=== PATIENT | female | born 1960 | race Caucasian/White ===

== ENCOUNTER 2024-01-22 06:59 | Emergency (ER) | payer BC, SELFPAY ==
[2024-01-22 07:01] VITALS: BP 166/106; PULSE 81; RESP 16; TEMP 36.7; O2SAT 96; BMI 38.8
--- NOTE | 2024-01-22 07:14 | CT_ITS ---
PROCEDURE INFORMATION: Exam: CT Abdomen And Pelvis With Contrast Exam date and time: 01/22/2024 7:59 AM Age: 63 years old Clinical indication: Abdominal pain; Generalized; Additional info: Multiple prev stones, b/l back and flank pain TECHNIQUE: Imaging protocol: Computed tomography of the abdomen and pelvis with contrast. Radiation optimization: All CT scans at this facility use at least one of these dose optimization techniques: automated exposure control; mA and/or kV adjustment per patient size (includes targeted exams where dose is matched to clinical indication); or iterative reconstruction. Contrast material: ISOVUE; Contrast volume: 75 ml; Contrast route: IV; COMPARISON: No relevant prior studies available. FINDINGS: Liver: Normal. No mass. Gallbladder and bile ducts: Cholecystectomy Pancreas: Pancreatic atrophy Spleen: Borderline splenomegaly 13.7 cm. Adrenal glands: 18 mm left adrenal nodule measures 45 Hounsfield units and not clearly adrenal adenoma. Kidneys and ureters: 2.9 cm simple cyst in the right kidney. . No follow-up imaging recommended . Nonobstructing right renal calculus. No ureteral calculus. Stomach and bowel: Diverticulosis of the rectosigmoid. No diverticulitis. Findings consistent with constipation. Diverticulosis of the rectosigmoid. No diverticulitis Appendix: Normal appendix Intraperitoneal space: Unremarkable. No free air. No significant fluid collection. Vasculature: Unremarkable. No abdominal aortic aneurysm. Lymph nodes: Calcified mediastinal lymph nodes consistent with prior granulomatous disease Urinary bladder: Unremarkable as visualized. Reproductive: Unremarkable as visualized. Bones/joints: Broad-based disc bulge, facet hypertrophy, and ligament hypertrophy at L3/L4, L4/L5, and L5/S1 consistent with spinal stenosis. . Soft tissues: Unremarkable. IMPRESSION: 1. No ureteral calculus. 2. Borderline splenomegaly 13.7 cm. 3. 18 mm left adrenal nodule measures 45 Hounsfield units and not clearly adrenal adenoma. In a patient with no cancer history, consider 12 month follow-up adrenal CT. (Reference: Jack) References: Jack FINCH et al. Management of Incidental Adrenal Masses: A White Paper of the ACR Incidental Findings Committee. J Am Isidra Radiol. 2017;14(8):5971-3736. 4. Broad-based disc bulge, facet hypertrophy, and ligament hypertrophy at L3/L4, L4/L5, and L5/S1 consistent with spinal stenosis. . COMMENTS: Consistent with the [employer]'s Incidental Findings Committee white paper (J Am Isidra Radiol 2018): Any incidental renal lesion less than 1 cm or classified as too small to characterize, or any incidental cystic renal lesion characterized as simple-appearing, is likely benign. No follow-up imaging is recommended for these lesions per consensus recommendations based on imaging criteria.
--- NOTE | 2024-01-22 07:14 | PC.NURSE ---
Dr. Massey at [facility] for pt eval
--- NOTE | 2024-01-22 07:16 | ED_ITS ---
Discharge Plan Disposition Patient Disposition: Home, Self-Care Prescriptions Prescriptions: New nitrofurantoin monohyd/m-cryst [Macrobid] 100 mg capsule 100 mg PO BID 5 Days Qty: 10 0RF Rx Instructions: must administer with a meal/food Referrals Follow up/Referrals: Tiffanie Diego APRN [Primary Care Provider] - See instructions Activity Restrictions/Add. Instructions Additional Instructions/Restrictions: At this time it was felt you are safe to be discharged home. If new or worsening symptoms please do not hesitate to return the emergency department. Please take antibiotics as prescribed and continue to follow-up with your family doctor for the findings on your CT today if your lower back pain persists. Clinical Impressions Clinical Impression: Urinary tract infection, Back pain, Bulging lumbar disc Instructions Patient Instructions: DI for Urinary Tract Infection (UTI), DI for Urinary Tract Infection in Children Discharge ED Provider: Maximino Massey General Adult HPI General Chief complaint: Urogenital-Female Stated complaint: pain in lower/upper back abd cramps Time Seen by Provider: 01/22/24 07:04 Mode of Arrival: Ambulatory Source of Information: Patient Limitations: No Limitations Description of Symptoms (Recalled from ER Triage Doc. by RN): Patient reports nausea and pain in her lower back that radiates to her abdomen. States she has had kidney stones recently and this kind of feels like that. History of Present Illness HPI narrative: Patient is a 63-year-old female with past medical history of multiple previous kidney stones none of which have required intervention as passed spontaneously presents emergency department for evaluation of flank pain and back pain. Approximately 2 weeks ago patient passed what she suspected were 3 stones in her urine and had interval improvement, however over the last few days she has had progressive bilateral CVA and lumbar pain radiating around to her flank. No frontal abdominal pain. There is associated nausea without vomiting. Normal stooling. Past surgical history of previous cholecystectomy. No chest pain reported. No other acute complaints at this time. Related Data Previous Rx's Medication Instructions Recorded nitrofurantoin 100 mg PO BID 5 days #10 caps 01/22/24 monohydrate/macrocrystals 100 mg capsule (Macrobid) Allergies Allergy/AdvReac Type Severity Reaction Status Date / Time latex Allergy Verified 01/22/24 07:12 [facility] Disclaimer: The information contained in this section may have been updated after the patient was seen, as this information can be updated by other users. Social History Smoking Status: Never smoker alcohol intake: never current occupational status: other Travel in the last 8 weeks: None ROS Obtained: Yes Systems reviewed as appropriate & no additional complaints except as documented Physical Exam General General appearance: alert and in no apparent distress Head Head exam: atraumatic and normocephalic Eye Eye exam: Present PERRL ENT ENT exam: Present mucous membranes moist Neck Neck exam: Present normal inspection Chest Chest inspection: Present normal inspection and symmetric chest wall rise Respiratory Respiratory exam: Present normal lung sounds bilaterally; Absent respiratory distress Cardiovascular Cardiovascular exam: Present regular rate and normal rhythm Abdominal Exam Abdominal exam: Present soft; Absent tenderness Extremities Exam Extremities exam: Present normal inspection Back Exam Back exam: Present normal inspection and other (Able to stand without antalgic gait); Absent tenderness Neurological Exam Neurological exam: Present alert Psychiatric Psychiatric exam: Present normal affect Skin Skin exam: Present warm and dry Medical Decision Making Mathieu Inquiry Pt receiving controlled substance: No Vital Signs: 01/22/24 07:01 01/22/24 08:37 Temperature 98.1 F Temperature Source Oral Pulse Rate 65 Pulse Rate [Radial] 81 Respiratory Rate 16 Blood Pressure 148/67 H Blood Pressure [Right Arm] 166/106 H Blood Pressure Mean [Right Arm] 126 Blood Pressure Source [Right Arm] Automatic Cuff Blood Pressure Position [Right Arm] Sitting 02 Sat by Pulse Oximetry 96 94 L Oxygen Delivery Method Room Air Room Air Lab Data Lab Results 01/22/24 07:06: WBC 7.6, RBC 5.28, Hgb 14.9, Hct 46.6, MCV 88.2, MCH 28.3, MCHC 32.1, RDW 14.0, Plt Count 214, MPV 9.5, Neut % (Auto) 62.0, Lymph % (Auto) 27.4, [place] % (Auto) 6.2, Eos % (Auto) 3.2, Baso % (Auto) 1.1, Neut # (Auto) 4.7, Lymph # (Auto) 2.1, [place] # (Auto) 0.5, Eos # (Auto) 0.2, Baso # (Auto) 0.1, Sodium 135 L, Potassium 4.2, Chloride 101, Carbon Dioxide 29, Anion Gap 9.2, BUN 10, C reatinine 0.50 L, Estimated Creat Clear 104, Estimated GFR 125, Est GFR ( Amer) 151, Glucose 336 H, Calcium 9.1, Total Bilirubin 0.6, AST 37 H, ALT 39, Alkaline Phosphatase 126, Total Protein 7.4, Albumin 4.0, Globulin 3.4 H, Albumin/Globulin Ratio 1.2, Lipase 68, Urine Color Yellow, Urine Appearance Clear, Urine pH 6.0, Ur Specific [place] 1.020, Urine Protein Negative, Urine Glucose (UA) 3+, Urine Ketones Negative, Urine Blood Negative, Urine Nitrate Negative, Urine Bilirubin Negative, Urine Urobilinogen 0.2, Ur Leukocyte Esterase Trace, Urine RBC None, Urine WBC 3-5, Ur Squamous Epith Cells Occasional, Urine Bacteria 1+ 01/22/24 07:06 01/22/24 07:06 Orders (Tests/Meds): ED MEDICATIONS Discontinued Medications Generic Name Dose Route Start Last Admin Trade Name Freq PRN Reason Stop Dose Admin Acetaminophen 1,000 mg 01/22/24 07:14 01/22/24 07:27 Acetaminophen 1,000mg/100ml Vial IV 01/22/24 07:15 1,000 mg ONCE ONE Administration Lactated Ringer's 1,000 mls @ 999 mls/hr 01/22/24 07:14 01/22/24 07:27 Lactated Ringer's 1000 Ml Bag IV 01/22/24 08:14 999 mls/hr .Q1H1M ONE Administration Iopamidol 75 ml 01/22/24 08:19 01/22/24 08:21 Iopamidol-370 (76%);100ml Bottle IV 01/22/24 08:20 75 ml ONCE ONE Administration Ketorolac Tromethamine 30 mg 01/22/24 07:14 01/22/24 07:27 Ketorolac 30mg/Ml Vial IV 01/22/24 07:15 30 mg ONCE ONE Administration Methocarbamol 1,000 mg 01/22/24 07:15 01/22/24 07:27 Methocarbamol 500mg Tablet PO 01/22/24 07:16 1,000 mg ONCE ONE Administration Ondansetron HCl 4 mg 01/22/24 07:14 01/22/24 07:27 Ondansetron 4mg/2ml Vial IV 01/22/24 07:15 4 mg ONCE ONE Administration Sodium Chloride 10 ml 01/22/24 08:19 01/22/24 08:21 Sodium Chloride 0.9% 10ml Syr (Rad Only) IV 01/22/24 08:20 10 ml ONCE ONE Administration ORDERS Category Date Time Status CT abdomen pelvis w con Stat Cat Scan 01/22/24 07:14 Completed CBC w/Auto Diff [Complete Blood Count Auto Diff] Stat Lab 01/22/24 07:06 Completed CMP [Comprehensive Metabolic Panel] Stat Lab 01/22/24 07:06 Completed Lipase Stat Lab 01/22/24 07:06 Completed UA [Urinalysis and Microscopic] Stat Lab 01/22/24 07:06 Completed Medical Decision Narrative: In summary patient is a 63-year-old female past medical history described above presents emergency department for evaluation of bilateral flank pain and back pain. Patient is hemodynamically stable nontoxic-appearing upon arrival, afebrile. Differential in the atraumatic setting includes obstructive ureterolithiasis although would be abnormal for bilateral flank pain, lumbago, urinary tract infection, among others. Workup will be conducted with hematologic labs, urinalysis, CT abdomen pelvis IV contrast. Initial interventions include crystalloid bolus, Tylenol, Toradol, methocarbamol, Zofran. Initial workup reviewed by me, hematologic labs are nonactionable, no leukocytosis, no acute blood loss anemia, no critical electrolyte abnormalities, patient is hyperglycemic without elevated anion gap so no concern for DKA. Patient also has no ketones in her urine. There is trace 1+ bacteria 3-5 whites, trace leuk esterase nitrite negative which is equivocal for urinary tract infection. CT imaging shows no ureteral calculus, borderline splenomegaly, 18 mm left adrenal nodule for which patient is already aware, broad-based disc bulge and facet hypertrophy at L3-L4/L4-L5/L5-S1. Given the radiating bilateral symptoms this may be reflective of her disc bulge. However she has no red flag symptoms that would warrant further emergent evaluation from the standpoint. Given these findings patient will be started on Macrobid for protein negative equivocal urinary tract infection will follow-up with PCP for continued evaluation. Critical Care Critical Care Time Critical Care Time: No
[2024-01-22 07:19] LABS: Microscopic, Urine URINE MICROSCOPIC (MICROSCOPIC)
[2024-01-22 07:21] LABS: Basophils # 0.1 K/mm3 (0-0.2); Basophils % 1.1 % (0.1-2.0); Eosinophils # 0.2 K/mm3 (0.0-0.4); Eosinophils % 3.2 % (0.1-12.0); Hematocrit 46.6 % (37.0-47.0); Hemoglobin 14.9 g/dL (12.2-16.2); Lymphocytes # 2.1 K/mm3 (0.7-4.5); Lymphocytes % 27.4 % (10-50); Mean Corpuscular HGB Conc 32.1 g/dL (31.8-35.4); Mean Corpuscular Hemoglobin 28.3 pg (27.0-31.2); Mean Corpuscular Volume 88.2 fl (81-99); Mean Platelet Volume 9.5 fl (7.4-10.4); Monocytes # 0.5 K/mm3 (0.1-1.0); Monocytes % 6.2 % (1.7-9.3); Neutrophils # 4.7 K/mm3 (1.8-7.8); Platelet Count 214 K/mm3 (142-424); Red Blood Count 5.28 M/mm3 (4.20-5.40); White Blood Count 7.6 K/mm3 (4.8-10.8)
[2024-01-22 07:22] LABS: Chloride 101 mmol/L (98-107)
[2024-01-22 07:23] LABS: Potassium 4.2 mmoL/L (3.5-5.1); Sodium 135 mmol/L (136-145)
[2024-01-22 07:25] LABS: Alanine Aminotransferase 39 U/L (12-78); Alkaline Phosphatase 126 U/L (38-126); Anion Gap 9.2 mEq/L (5-15); Aspartate Amino Transferase 37 U/L (14-36); Bilirubin,Total 0.6 mg/dl (0.2-1.3); Blood Urea Nitrogen 10 mg/dl (7-17); Carbon Dioxide 29 mmol/L (22.0-30.0); Creatinine Clearance Estimated 104 mL/min (50-200); Estimated Glomerular Filt Rate 125 ml/min (>60); GFR (African American) 151 ML/MIN (>60); Lipase 68 U/L (23-300)
[2024-01-22 07:26] LABS: Albumin/Globulin Ratio 1.2 (1.1-1.8); Calcium 9.1 mg/dl (8.4-10.2); Globulin 3.4 g/dL (1.3-3.2); Glucose 336 mg/dl (74-100); Total Protein,Serum 7.4 g/dl (6.3-8.2)
[2024-01-22] MEDS: KETOROLAC 30MG/ML VIAL 30 MG IV (07:27)
[2024-01-22] MEDS: ONDANSETRON 4MG/2ML VIAL 4 MG IV (07:27)
[2024-01-22] MEDS: ACETAMINOPHEN 1,000MG/100ML VIAL 1000 MG IV (07:27)
[2024-01-22] MEDS: LACTATED RINGERS 1000ML 1,000 ML 999 ML IV (07:27)
[2024-01-22] MEDS: METHOCARBAMOL 500MG TABLET 1000 MG PO (07:27)
[2024-01-22 07:28] LABS: Appearance,Urine CLEAR (Clear); Bilirubin,Urine Negative (Negative); Blood, Urine Negative (Negative); Color,Urine YELLOW (Yellow); Glucose,Urine (UA) 3+ (Negative); Ketones,Urine Negative (Negative); Leukocyte Esterase,Urine TRACE (Negative); Nitrate,Urine Negative (Negative); Protein,Urine Negative (Negative); Urobilinogen,Urine 0.2 EU/dl (0.2)
[2024-01-22 07:51] LABS: Bacteria,Urine 1+ /lpf; Squamous Epithelial Cell,Urine Occasional #/hpf (0-5)
--- NOTE | 2024-01-22 07:55 | PC.NURSE ---
Pt gone to CT via WC
--- NOTE | 2024-01-22 08:02 | PC.NURSE ---
PT returned from CT
[2024-01-22] MEDS: SODIUM CHLORIDE 0.9% 10ML SYR (RAD ONLY) 10 ML IV (08:21)
[2024-01-22] MEDS: IOPAMIDOL-370 (76%);100ML BOTTLE 75 ML IV (08:21)
[2024-01-22 08:37] VITALS: BP 148/67; PULSE 65; O2SAT 94
--- NOTE | 2024-01-22 08:37 | PC.NURSE ---
Rounded on pt. No needs voiced at this time. Call light within reach.
[2024-01-22 09:41] VITALS: BP 148/67; PULSE 65; RESP 16; TEMP 36.7; O2SAT 94
== END 2024-01-22 09:42 | disposition home or self-care (01) ==
PROVIDERS: Emergency Provider Emergency Medicine; PCP Nurse Practitioner Family
DX: N39.0 Urinary tract infection, site not specified (principal); R10.32 Left lower quadrant pain; M51.26 Other intervertebral disc displacement, lumbar region; R11.0 Nausea; E11.65 Type 2 diabetes mellitus with hyperglycemia
CPT/HCPCS: 74177; 80053; 81001; 83690; 85025; 96361; 96374; 96375; 99284; J0131; J1885; J2405; J7120; Q9967

== ENCOUNTER 2024-01-30 16:43 | Emergency (ER) | payer BC, SELFPAY ==
[2024-01-30 16:45] VITALS: BP 160/91; PULSE 74; RESP 18; TEMP 36.6; O2SAT 97; BMI 38.3
[2024-01-30 17:14] LABS: Apearance,Urine Clear (Clear); Color,Urine Yellow (Yellow); Glucose,Urine (UA) 1000 (Negative); PH,Urine 5.5 (5.0-8.5); Protein,Urine Negative (Negative)
[2024-01-30 17:15] LABS: Bilirubin,Urine Negative (Negative); Blood, Urine Negative (Negative); Ketones,Urine Negative (Negative); UTC Leukocyte Esterase,Urine Negative (Negative); UTC Nitrate,Urine Negative (Negative); Urobilinogen,Urine 1 EU/dl (0.2)
[2024-01-30 17:29] LABS: POC Glucose,Bedside 435 (70-110)
--- NOTE | 2024-01-30 17:36 | EXP.UTC ---
Discharge Plan Disposition Patient Disposition: Home, Self-Care Condition: Good Prescriptions Prescriptions: No Action (DME) Accu-Chek Guide test strips Strip See Rx Instructions .ROUTE .MEDSUPPLY Qty: 50 2RF Rx Instructions: As directed BID (DME) lancets [Accu-Chek [place]clix Lancets[place] [facility] [place]OUTE .MEDSUPPLY Qty: 100 2RF Rx Instructions: As directed (DME) blood-glucose meter [Accu-Chek Guide Glucose Meter] [facility] [place] Instructions .ROUTE .MEDSUPPLY Qty: 1 0RF Rx Instructions: As directed Ozempic 0.25 mg or 0.5 mg (2 mg/3 mL) pen injector 0.25 mg SQ WEEKLY Qty: 3 1RF Rx Instructions: for 4 weeks carvedilol 25 mg Tablet 25 mg PO DAILY spironolactone 25 mg Tablet 25 mg PO DAILY Referrals Follow up/Referrals: Tiffanie Diego APRN [Primary Care Provider] - See instructions Callum Johnston MD [Staff Physician] - See instructions Activity Restrictions/Add. Instructions Additional Instructions/Restrictions: Please call Dr. Johnston office in the morning to make an appointment for management of your diabetes.. Clinical Impressions Clinical Impression: Hyperglycemia due to type 2 diabetes mellitus Instructions Patient Instructions: DI for Diabetes Type 2 Discharge ED Provider: Marisol Menendez [facility] General Chief complaint: Recheck/Abnormal Lab/Rx Stated complaint: back pain, painful urination Mode of Arrival: Ambulatory Source of Information: Patient Limitations: No Limitations Time Seen by Provider: 01/30/24 17:35 Description of Symptoms (Recalled from Triage Doc. by RN): Pt's symptoms are yeast infection from taken abx, pain in back and flank, and nausea. HEENT Symptoms (Recalled from RN notes): No Resp Symptoms (Recalled from RN notes): No Skin Symptoms (Recalled from RN notes): No MS Symptoms (Recalled from RN notes): No Functional Status (Recalled from RN notes): n/a History of Present Illness Provider Complaint: Pt reports that her father in October and she has not taken very good care of herself since that time. She states that she recently had an UTI and is concerned that this may have come back or that she has a yeast infection. She reports feeling run down, nauseated, and body aches. She states that she controls her sugar with diet and has not checked her sugars recently. Related Data Home Medications Medication Instructions Recorded Confirmed carvedilol 25 mg tablet 25 mg PO DAILY 01/30/24 01/31/24 spironolactone 25 mg tablet 25 mg PO DAILY 01/30/24 01/31/24 Previous Rx's Medication Instructions Recorded blood sugar diagnostic (Accu-Chek #50 ea 01/31/24 Guide test strips) blood-glucose meter (Accu-Chek #1 ea 01/31/24 Guide Glucose Meter) lancets (Accu-Chek Softclix #100 ea 01/31/24 Lancets) semaglutide 0.25 mg or 0.5 mg (2 0.25 mg (0.368 mL) SQ WEEKLY #3 mL 01/31/24 mg/3 mL) subcutaneous pen injector (Ozempic) Allergies Allergy/AdvReac Type Severity Reaction Status Date / Time latex Allergy Verified 01/31/24 14:53 Worker's Comp Is this a Worker's Comp case?: No [facility] Disclaimer: The information contained in this section may have been updated after the patient was seen, as this information can be updated by other users. Medical History (Updated 01/31/24 @ 16:01 by Callum Johnston MD) Adrenal tumor Lumbar disc disease Back pain Migraine Hypertension Diabetes Surgical History History of partial hysterectomy Hx of section Hx of cholecystectomy Social History Smoking Status: Never smoker alcohol intake: never current occupational status: other Travel in the last 8 weeks: None ROS Obtained: Yes All systems reviewed & no additional complaints except as documented Physical Exam General General appearance: alert and in no apparent distress Respiratory Respiratory exam: Present normal lung sounds bilaterally Cardiovascular Cardiovascular exam: Present regular rate, normal rhythm and normal heart sounds Neurological Exam Neurological exam: Present alert and oriented X3 Medical Decision Making Mathieu Inquiry Pt receiving controlled substance: No Mathieu was queried for this patient: No Vital Signs: 01/30/24 16:45 Temperature 97.9 F Temperature Source Oral Pulse Rate [Right Radial] 74 Respiratory Rate 18 Blood Pressure [Right Arm] 160/91 H Blood Pressure Mean [Right Arm] 114 Blood Pressure Source [Right Arm] Automatic Cuff Blood Pressure Position [Right Arm] Sitting 02 Sat by Pulse Oximetry 97 Oxygen Delivery Method Room Air Lab Data Lab Results 01/30/24 17:13: Urine Color Yellow, Urine Appearance Clear, Urine pH 5.5, Ur Specific [place] 1.010, Urine Protein Negative, Urine Glucose (UA) 1000, Urine Ketones Negative, Urine Blood Negative, Urine Nitrate Negative, Urine Bilirubin Negative, Urine Urobilinogen 1, Ur Leukocyte Esterase Negative 01/30/24 17:21: POC Glucose 435 H* 01/30/24 17:50 01/30/24 17:50 Orders (Tests/Meds): ORDERS Category Date Time Status POC Glucose,Bedside Routine Lab 01/30/24 17:21 Completed Urine Culture Stat Micro 01/30/24 17:05 Received Medical Decision Narrative: Pt spilling >1000 glucose in urine. glucose was 435 when checked. Pt reports that she last ate about 2.5 hours ago. ER called for transfer due to critical result. Dr. Menendez receiving physician.
--- NOTE | 2024-01-30 18:03 | PC.NURSE ---
Sent up urine, rainbow set, and lactic acid to lab via tube system.
--- NOTE | 2024-01-30 18:06 | ED_ITS ---
<Statement entered by Marisol Menendez DO - 01/31/24 00:03> I was consulted by the DEJAH, and we discussed the complexity of the problems being addressed. I approved the treatment and management plan for this patient's care in the emergency department, thus performing a substantive portion of the medical decision making. Marisol Menendez DO Discharge Plan Disposition Patient Disposition: Home, Self-Care Condition: Good Prescriptions Prescriptions: No Action carvedilol 25 mg Tablet 25 mg PO DAILY spironolactone 25 mg Tablet 25 mg PO DAILY Referrals Follow up/Referrals: Tiffanie Diego APRN [Primary Care Provider] - See instructions Callum Johnston MD [Staff Physician] - See instructions Activity Restrictions/Add. Instructions Additional Instructions/Restrictions: Please call Dr. Johnston office in the morning to make an appointment for management of your diabetes.. Clinical Impressions Clinical Impression: Hyperglycemia due to type 2 diabetes mellitus Qualifiers: Diabetes mellitus penitentiary insulin use: without termite control representative use Qualified Code(s): E11.65 - Type 2 diabetes mellitus with hyperglycemia Instructions Patient Instructions: DI for Diabetes Type 2 Discharge ED Provider: Marisol Menendez General Adult HPI General Chief complaint: Recheck/Abnormal Lab/Rx Stated complaint: back pain, painful urination Time Seen by Provider: 01/30/24 17:35 Mode of Arrival: Ambulatory Source of Information: Patient Limitations: No Limitations Description of Symptoms (Recalled from ER Triage Doc. by RN): Pt's symptoms are yeast infection from taken abx, pain in back and flank, and nausea. History of Present Illness HPI narrative: Patient presented to the [facility] today complaining of nonresponding yeast infection back and flank pain and nausea. Patient has previously been diagnosed with diabetes and been on oral medication however she had been able to be off of that for a long period of time with dietary managed diabetes. However her father in October of this year and she has significantly lost control of her dietary regimen. Patient was able to take her hemoglobin A1c from 15-7 with oral diet off of metformin. In any event patient has recently had several sequential problems including kidney stones followed by UTI followed by yeast infection etc. while at the [facility] today she was noted to have significant glucosuria and they did a fingerstick blood sugar and it was over 400 hence she was sent to the ER for further evaluation. He currently denies chest pain fever chills hemoptysis hematochezia melena nausea vomiting diarrhea. She does endorse hematuria and polyuria Related Data Home Medications Medication Instructions Recorded Confirmed carvedilol 25 mg tablet 25 mg PO DAILY 01/30/24 01/30/24 spironolactone 25 mg tablet 25 mg PO DAILY 01/30/24 01/30/24 Allergies Allergy/AdvReac Type Severity Reaction Status Date / Time latex Allergy Verified 01/30/24 17:27 [facility] Disclaimer: The information contained in this section may have been updated after the patient was seen, as this information can be updated by other users. Medical History (Updated 01/30/24 @ 19:59 by KARLI Mckee) Tumor Migraine Hypertension Diabetes Surgical History (Updated 01/30/24 @ 17:31 by Alysha Shin RN) History of partial hysterectomy Hx of section Hx of cholecystectomy Social History (Updated 01/22/24 @ 09:34 by Maximino Massey MD) Smoking Status: Never smoker alcohol intake: never current occupational status: other Travel in the last 8 weeks: None ROS Obtained: Yes Systems reviewed as appropriate & no additional complaints except as documented Physical Exam General General appearance: alert and in no apparent distress Respiratory Respiratory exam: Present normal lung sounds bilaterally Cardiovascular Cardiovascular exam: Present regular rate, normal rhythm and normal heart sounds Abdominal Exam Abdominal exam: Present soft and normal bowel sounds; Absent tenderness Neurological Exam Neurological exam: Present alert and oriented X3 Medical Decision Making Medical Records Medical records reviewed: Yes I reviewed the patient's medical records. Mathieu Inquiry Pt receiving controlled substance: No Vital Signs: 01/30/24 16:45 01/30/24 18:10 01/30/24 18:30 Temperature 97.9 F Temperature Source Oral Pulse Rate 67 Pulse Rate [Right Radial] 74 76 Respiratory Rate 18 18 Blood Pressure 152/85 H Blood Pressure [Right Arm] 160/91 H 150/90 H Blood Pressure Mean [Right Arm] 114 110 Blood Pressure Source [Right Arm] Automatic Cuff Automatic Cuff Blood Pressure Position [Right Arm] Sitting Sitting 02 Sat by Pulse Oximetry 97 98 94 L Oxygen Delivery Method Room Air Room Air Room Air 01/30/24 19:00 01/30/24 19:30 01/30/24 20:14 Temperature 98 F Temperature Source Oral Pulse Rate 71 66 Pulse Rate [Right Radial] 64 Respiratory Rate 18 Blood Pressure 138/93 H 150/85 H Blood Pressure [Right Arm] 156/83 H Blood Pressure Mean [Right Arm] 107 Blood Pressure Source [Right Arm] Blood Pressure Position [Right Arm] 02 Sat by Pulse Oximetry 95 99 94 L Oxygen Delivery Method Room Air 01/30/24 20:14 Temperature 98 F Temperature Source Oral Pulse Rate 64 Pulse Rate [Right Radial] Respiratory Rate 18 Blood Pressure 156/83 H Blood Pressure [Right Arm] Blood Pressure Mean [Right Arm] Blood Pressure Source [Right Arm] Blood Pressure Position [Right Arm] 02 Sat by Pulse Oximetry Oxygen Delivery Method Room Air Lab Data Lab results reviewed: Yes I reviewed the patient's lab results. Lab Results 01/30/24 17:05: Urine Acetone None detected 01/30/24 17:13: Urine Color Yellow, Urine Appearance Clear, Urine pH 5.5, Ur Specific [place] 1.010, Urine Protein Negative, Urine Glucose (UA) 1000, Urine Ketones Negative, Urine Blood Negative, Urine Nitrate Negative, Urine Bilirubin Negative, Urine Urobilinogen 1, Ur Leukocyte Esterase Negative 01/30/24 17:21: POC Glucose 435 H* 01/30/24 17:50: WBC 7.9, RBC 5.18, Hgb 14.7, Hct 46.1, MCV 89.1, MCH 28.3, MCHC 31.8, RDW 14.4, Plt Count 181, MPV 10.0, Neut % (Auto) 64.1, Lymph % (Auto) 26.5, [place] % (Auto) 5.3, Eos % (Auto) 3.0, Baso % (Auto) 1.2, Neut # (Auto) 5.1, Lymph # (Auto) 2.1, [place] # (Auto) 0.4, Eos # (Auto) 0.2, Baso # (Auto) 0.1, S odium 134 L, Potassium 4.2, Chloride 101, Carbon Dioxide 27, Anion Gap 10.2, BUN 14, Creatinine 0.60, Estimated Creat Clear 102, Estimated GFR 101, Est GFR ( Amer) 123, Glucose 378 H, Hemoglobin A1c 11.3 H, Lactate 1.2, Calcium 9.2, Magnesium 1.9, Total Bilirubin 0.8, AST 38 H, ALT 42, Alkaline Phosphatase 125, Total Protein 7.4, Albumin 4.0, Globulin 3.4 H, Albumin/Globulin Ratio 1.2 01/30/24 17:50 01/30/24 17:50 Orders (Tests/Meds): ORDERS Category Date Time Status Acetone, Urine (Rapid) Stat Lab 01/30/24 17:05 Completed CBC w/Auto Diff [Complete Blood Count Auto Diff] Stat Lab 01/30/24 17:50 Completed CMP [Comprehensive Metabolic Panel] Stat Lab 01/30/24 17:50 Completed Hemoglobin A1C Stat Lab 01/30/24 17:50 Completed Lactic Acid Stat Lab 01/30/24 17:50 Completed Magnesium Stat Lab 01/30/24 17:50 Completed POC Glucose,Bedside Routine Lab 01/30/24 17:21 Completed Urine Culture Stat Micro 01/30/24 17:05 Received Medical Decision Narrative: In summary patient is a 63-year-old female who presents to the emergency department for evaluation of high blood sugar. Patient is normotensive with stable vital signs upon arrival, afebrile. Physical exam is unremarkable and nonfocal including no odor of acetone on her breath. Differential diagnosis includes hyperglycemia due to type 2 diabetes mellitus versus yeast vaginitis versus glycosuria versus DKA etc. Initial workup will be conducted with hematologic labs. Initial interventions include crystalloid bolus. Initial workup reviewed by me shows the patient does have hyperglycemia with a blood sugar greater than 300 but less than 400 and no gap acidosis no acetone no kidney injury. Remainder of her laboratory vesication's are nonactionable. Upon repeat evaluation patient reports feeling better after some fluid.. Given this I have referred the patient to Dr. Ish Whaley to establish primary care and recommended that the patient initiate oral diabetic therapy. Patient verbalized understanding and agreement. Critical Care Critical Care Time Critical Care Time: No
[2024-01-30 18:10] VITALS: BP 150/90; PULSE 76; RESP 18; O2SAT 98; BMI 38.3
[2024-01-30 18:17] LABS: Basophils # 0.1 K/mm3 (0-0.2); Basophils % 1.2 % (0.1-2.0); Eosinophils # 0.2 K/mm3 (0.0-0.4); Hematocrit 46.1 % (37.0-47.0); Hemoglobin 14.7 g/dL (12.2-16.2); Lymphocytes # 2.1 K/mm3 (0.7-4.5); Lymphocytes % 26.5 % (10-50); Mean Corpuscular HGB Conc 31.8 g/dL (31.8-35.4); Mean Corpuscular Hemoglobin 28.3 pg (27.0-31.2); Mean Corpuscular Volume 89.1 fl (81-99); Monocytes # 0.4 K/mm3 (0.1-1.0); Monocytes % 5.3 % (1.7-9.3); Neutrophils # 5.1 K/mm3 (1.8-7.8); Neutrophils % 64.1 % (37.0-80.0); Platelet Count 181 K/mm3 (142-424); Red Blood Count 5.18 M/mm3 (4.20-5.40); Red Cell Distribution Width 14.4 % (11.5-17.5); White Blood Count 7.9 K/mm3 (4.8-10.8)
[2024-01-30 18:21] LABS: Chloride 101 mmol/L (98-107)
[2024-01-30 18:22] LABS: Potassium 4.2 mmoL/L (3.5-5.1); Sodium 134 mmol/L (136-145)
[2024-01-30 18:24] LABS: Alanine Aminotransferase 42 U/L (12-78); Albumin/Globulin Ratio 1.2 (1.1-1.8); Alkaline Phosphatase 125 U/L (38-126); Anion Gap 10.2 mEq/L (5-15); Aspartate Amino Transferase 38 U/L (14-36); Bilirubin,Total 0.8 mg/dl (0.2-1.3); Blood Urea Nitrogen 14 mg/dl (7-17); Carbon Dioxide 27 mmol/L (22.0-30.0); Creatinine Clearance Estimated 102 mL/min (50-200); Estimated Glomerular Filt Rate 101 ml/min (>60); GFR (African American) 123 ML/MIN (>60); Globulin 3.4 g/dL (1.3-3.2); Glucose 378 mg/dl (74-100); Lactic Acid 1.2 mmol/L (0.7-2.1); Total Protein,Serum 7.4 g/dl (6.3-8.2)
[2024-01-30 18:25] LABS: Calcium 9.2 mg/dl (8.4-10.2); Magnesium 1.9 mg/dl (1.6-2.3)
[2024-01-30 18:30] VITALS: BP 152/85; PULSE 67; O2SAT 94
[2024-01-30 18:59] LABS: Hemoglobin A1C 11.3 % (4.0-6.0)
[2024-01-30 19:00] VITALS: BP 138/93; PULSE 71; O2SAT 95
--- NOTE | 2024-01-30 19:19 | PC.NURSE ---
assisted patient to bathroom and back to bed, patient given warm blanket, call light within reach no other needs
[2024-01-30 19:30] VITALS: BP 150/85; PULSE 66; O2SAT 99
[2024-01-30 20:14] VITALS: BP 156/83; PULSE 64; RESP 18; TEMP 36.6; O2SAT 94
== END 2024-01-30 20:16 | disposition home or self-care (01) ==
LOC: UTC 18:00 → ER 18:03
PROVIDERS: Nurse Practitioner Family; Physician Assistant; Emergency Provider Emergency Medicine; PCP Nurse Practitioner Family
DX: R10.30 Lower abdominal pain, unspecified (principal); M54.59 Other low back pain; E11.65 Type 2 diabetes mellitus with hyperglycemia; R11.0 Nausea; B96.1 Klebsiella pneumoniae [K. pneumoniae] as the cause of diseases classified elsewhere; I10 Essential (primary) hypertension
CPT/HCPCS: 80053; 81003; 82009; 82962; 83036; 83605; 83735; 85025; 87086; 87088; 87186; 99283

== ENCOUNTER 2024-02-23 14:58 | Outpatient (POV) | payer BC, SELFPAY ==
[2024-02-23 15:29] VITALS: BP 179/98; PULSE 89; RESP 20; O2SAT 98; BMI 38.8
--- NOTE | 2024-02-23 15:53 | EXP.PAIN.OV ---
HPI Data of Consult Patient: new to practice Consult date: 02/23/24 Requesting Physician: Marisol Diez APRN Primary Care Provider: Callum Johnston MD Consult Narrative Reason for consult: Low back pain, bilateral leg pain History of present illness: Ms. Diez is a 64 year old female who presents today as a new patient. She is a referral from this office. Today she rates her pain a 7 out of 10. Patient states her pain is throughout her low back and radiates down her entire bilateral lower extremities with numbness and tingling more prominent on the right side. Patient states that she has had chronic low back pain for decades. She denies any specific trauma or injury that initially led to the symptoms. She does state that it is a chronic aching, throbbing sensation that is worse with increased activity or even simple things such as driving. Patient does state that she has pinching sensations from time to time. Patient has tried [id number] Tylenol and ibuprofen along with heat and ice and topicals with no additional relief. Patient denies any prior injection history and states she does have a fear of needles. Patient denies any prior surgery. She does state that the pain is interfering with her ability to perform activities of daily living such as cooking and cleaning. Patient states that she has to take multiple breaks due to the pain. She states that initially this was found through kidney stones that required imaging and that she has now passed although stones however still continues to have the chronic low back pain. Patient is interested in any help we may be able to provide. She does state that she has a history of Franks and diabetes. She does state that she has altered her diet and went from her sugar being on average 438-231. Patient states that she was recommended for Ozempic injections however due to her fear of needles she is making diet changes rather than getting scheduled for these injections. Her Mathieu has been reviewed and is appropriate. CC: Marisol Diez APRN [facility] Disclaimer: The information contained in this section may have been updated after the patient was seen, as this information can be updated by other users. Medical History (Updated 02/23/24 @ 15:57 by Marisol Diez APRN) Adrenal tumor Lumbar disc disease Back pain Migraine Hypertension Diabetes Surgical History History of partial hysterectomy Hx of section Hx of cholecystectomy Family History (Updated 02/23/24 @ 15:30 by Bridgett Elizabeth RN) Other Unknown family medical history Social History (Updated 02/23/24 @ 15:31 by Bridgett Elizabeth RN) Smoking Status: Never smoker alcohol intake: never current occupational status: other Travel in the last 8 weeks: None Review of Systems Review of Systems Review of systems:: pertinent systems reviewed and negative unless documented below Review of systems (narrative): Review of Systems: General: No recent weight changes, no fever, no sleep disturbances Respiratory: No cough, no shortness of air, no recurring pulmonary infections Cardiovascular/peripheral vascular: No chest pain, no palpitations, no edema, no shortness of breath Gastrointestinal: No new onset incontinence, normal bowel movements reported Genitourinary: No new onset incontinence Musculoskeletal: Low back pain, bilateral leg pain Psychiatric: [Normal mood/affect] Neurological: [Denies weakness in extremities], [denies balance issues] Meds Home Medications and Allergies Home Medications Medication Instructions Recorded Confirmed Type carvedilol 25 mg tablet 25 mg PO DAILY 01/30/24 01/31/24 History spironolactone 25 mg tablet 25 mg PO DAILY 01/30/24 01/31/24 History blood sugar diagnostic (Accu-Chek #50 ea 01/31/24 01/31/24 Rx Guide test strips) blood-glucose meter (Accu-Chek #1 ea 01/31/24 01/31/24 Rx Guide Glucose Meter) lancets (Accu-Chek Softclix #100 ea 01/31/24 01/31/24 Rx Lancets) semaglutide 0.25 mg or 0.5 mg (2 0.25 mg (0.368 mL) SQ WEEKLY #3 mL 01/31/24 01/31/24 Rx mg/3 mL) subcutaneous pen injector ([employer]) New Prescriptions to Start Prescriptions: Allergies Allergy/AdvReac Type Severity Reaction Status Date / Time latex Allergy Verified 01/31/24 14:53 Objective Vital signs: Pulse Resp BP Pulse Ox O2 Del Method 89 20 179/98 H 98 Room Air 02/23/24 15:29 02/23/24 15:29 02/23/24 15:29 02/23/24 15:29 02/23/24 15:29 Narrative: Physical Exam: General: Alert and oriented x3, no acute distress, pleasant and cooperative Lungs: Respirations even and unlabored, symmetrical chest expansion Eyes: PERRL Musculoskeletal: Flexion and extension of lumbar [spine] somewhat guarded secondary to pain, [antalgic gait noted] point tenderness along bilateral SIs with positive bilateral Gustavo's Neurological: Speech clear, no gross sensory deficit Additional findings Additional findings: CT abdomen and pelvis Findings: Broad-based disc bulge, facet hypertrophy and ligamentum hypertrophy at L3-L4, L4-L5 and L5-S1 consistent with spinal stenosis Assessment and Plan *Assessment and plan (1) Degenerative disc disease, lumbar: Status: Acute Category: Medical Code(s): M51.36 - Other intervertebral disc degeneration, lumbar region (2) Lumbar radiculopathy: Status: Acute Category: Medical Code(s): M54.16 - Radiculopathy, lumbar region (3) Bilateral sacroiliitis: Status: Acute Category: Medical Code(s): M46.1 - Sacroiliitis, not elsewhere classified Plan Patient is experiencing significant pain throughout her low back and hips with radiating symptoms into her legs. I did discuss with patient due to her imaging findings that it may be beneficial to actually order lumbar and SI x-rays with the plan to proceed forward with the advanced imaging at a later date. Patient is agreeable to this. I have also discussed with patient that she may benefit from lumbar epidural injections as well as SI injections however at this time she would like to wait. I will order the patient a compounded cream and also send in a 2-week dose of meloxicam 15 mg daily. Patient was counseled to discontinue all other NSAIDs while taking this medication and to take with food to minimize GI upset. Patient denied any heart or kidney issues and I have reviewed over her latest lab work and her GFR is within normal limits. Patient will return to clinic in 2 weeks for reevaluation of symptoms and plan of care. Patient did have elevated blood pressure during today's visit and she does state that this is something that her primary care is aware of. Patient has been instructed to contact the clinic with any concerns before the next appointment. Dr. Clifford has reviewed this note and agrees with this plan of care. This note was dictated using voice recognition software and make contain errors or omissions.
== END 2024-02-23 23:59 | disposition home or self-care (01) ==
PROVIDERS: PCP Family Medicine; Visit Provider Nurse Practitioner Family
DX: M51.16 Intervertebral disc disorders with radiculopathy, lumbar region (principal); M46.1 Sacroiliitis, not elsewhere classified
CPT/HCPCS: 99202; G0463

== ENCOUNTER 2024-02-23 15:54 | Outpatient (CLI) | payer BC, SELFPAY ==
--- NOTE | 2024-02-23 16:01 | XR_ITS ---
PROCEDURE INFORMATION: Exam: XR Lumbosacral Spine Exam date and time: 02/23/2024 4:05 PM Age: 64 years old Clinical indication: Low back pain; Additional info: Pain radiating down both legs, numbness and tingling TECHNIQUE: Imaging protocol: Radiologic exam of the lumbosacral spine. Views: 4 or 5 views. COMPARISON: CR XR LUMBAR SPINE MIN 4V 02/23/2024 4:05 PM FINDINGS: Bones/joints: There are 5 [id number] vertebral bodies in the lumbar spine. No evidence of acute fracture or malalignment. No evidence of pars defects or spondylolisthesis. Multi-level degenerative disc disease, most prominent from L3-S1 where there is severe disc space narrowing and sclerotic endplate changes. Degenerative disc osteophytes and facet hypertrophy results in moderate to severe bilateral neuroforaminal narrowing from L3-S1. Suspect moderate to severe spinal canal stenosis from L4-S1 as well. Bulky posterior disc osteophyte at L2-L3 likely results in significant spinal canal stenosis at this level. Soft tissues: Unremarkable. IMPRESSION: 1. No evidence of acute osseous abnormality in the lumbar spine. 2. Extensive multi-level degenerative changes, as above.
--- NOTE | 2024-02-23 16:04 | XR_ITS ---
PROCEDURE INFORMATION: Exam: XR Bilateral Sacroiliac Joints Exam date and time: 02/23/2024 4:05 PM Age: 64 years old Clinical indication: Other: Pain, patient HX: Pain radiating down legs, numbness and tingling TECHNIQUE: Imaging protocol: XR bilateral XR of the sacroiliac joints. Views: 3 or more views. COMPARISON: CR XR LUMBAR SPINE MIN 4V 02/23/2024 4:05 PM FINDINGS: Bones/joints: Pubic symphysis and bilateral sacroiliac joints are congruent. No evidence of acute fracture. Moderate degenerative osteoarthrosis in the bilateral sacroiliac joints. Soft tissues: Unremarkable. IMPRESSION: 1. No acute findings. 2. Moderate degenerative osteoarthrosis in the bilateral sacroiliac joints. No evidence of inflammatory sacroiliitis.
== END 2024-02-23 23:59 | disposition home or self-care (01) ==
LOC: RAD 15:57
PROVIDERS: PCP Family Medicine; Visit Provider Internal Medicine Medical Oncology
DX: M54.50 Low back pain, unspecified (principal)
CPT/HCPCS: 72110; 72202

== ENCOUNTER 2024-04-02 09:53 | Outpatient (POV) | payer BC, SELFPAY ==
[2024-04-02 10:11] VITALS: BP 187/105; BP 199/103; PULSE 73; RESP 16; O2SAT 98; BMI 37.5
--- NOTE | 2024-04-02 11:12 | EXP.PAIN.SOA ---
[facility] Disclaimer: The information contained in this section may have been updated after the patient was seen, as this information can be updated by other users. Medical History (Updated 04/02/24 @ 11:14 by Marisol Diez APRN) Adrenal tumor Lumbar disc disease Back pain Migraine Hypertension Diabetes Surgical History History of partial hysterectomy Hx of section Hx of cholecystectomy Family History (Updated 02/23/24 @ 15:30 by Bridgett Elizabeth, EVONNE) Other Unknown family medical history Social History (Updated 02/23/24 @ 15:31 by Bridgett Elizabeth RN) Smoking Status: Never smoker alcohol intake: never current occupational status: unemployed Travel in the last 8 weeks: None PM Subjective & Objective Subjective Subjective:: Patient is a pleasant 64-year-old female who presents today for follow-up. Today she rates her pain a 9 out of 10. Patient denies any new trauma or injury. She does state that the compounded cream we gave her did not seem to make much difference and then the meloxicam upset her stomach. She states she tried it for about 4 days with no additional improvement. Patient does states she continues to have the low back pain as well as right shoulder pain. Patient states that the shoulder is bothering her more than the overall low back pain and that she has not had any injuries. She states has been going on for well over a year. She describes it as an aching sensation with occasional sharp shooting pains. Patient does state that she is not a fan of needles and is not necessarily interested in injections due to this. Her Mathieu has been reviewed and is appropriate. Review of Systems: General: No recent weight changes, no fever, no sleep disturbances Respiratory: No cough, no shortness of air, no recurring pulmonary infections Cardiovascular/peripheral vascular: No chest pain, no palpitations, no edema, no shortness of breath Gastrointestinal: No new onset incontinence, normal bowel movements reported Genitourinary: No new onset incontinence Musculoskeletal: Right shoulder pain, low back pain Psychiatric: [Normal mood/affect] Neurological: [Denies weakness in extremities], [denies balance issues] Pain at rest (0-10 scale): 9 Objective Objective:: Physical Exam: General: Alert and oriented x3, no acute distress, pleasant and cooperative Lungs: Respirations even and unlabored, symmetrical chest expansion Eyes: PERRL Musculoskeletal: Flexion and extension of right shoulder somewhat guarded secondary to pain Neurological: Speech clear, no gross sensory deficit Has patient had previous pain injection?: No Conservative treatment options previously tried: Home exercise plan Length of treatment: Longer than 6 weeks Meds Home Medications and Allergies Home Medications ?Medication ?Instructions ?Recorded ?Confirmed ?Type carvedilol 25 mg tablet 25 mg PO DAILY 01/30/24 04/02/24 History spironolactone 25 mg tablet 25 mg PO DAILY 01/30/24 04/02/24 History blood sugar diagnostic (Accu-Chek #50 ea 01/31/24 04/02/24 Rx Guide test strips) blood-glucose meter (Accu-Chek #1 ea 01/31/24 04/02/24 Rx Guide Glucose Meter) lancets (Accu-Chek Softclix #100 ea 01/31/24 04/02/24 Rx Lancets) semaglutide 0.25 mg or 0.5 mg (2 0.25 mg (0.368 mL) SQ WEEKLY #3 mL 01/31/24 04/02/24 Rx mg/3 mL) subcutaneous pen injector (Ozempic) meloxicam 15 mg tablet 15 mg PO DAILY #14 tabs 02/23/24 04/02/24 Rx New Prescriptions to Start Prescriptions: Allergies Allergy/AdvReac Type Severity Reaction Status Date / Time latex Allergy Verified 01/31/24 14:53 Assessment and Plan *Assessment and plan (1) Right shoulder pain: Status: Acute Category: Medical Code(s): M25.511 - Pain in right shoulder Plan I did discuss with the patient her x-ray findings of her SI and lumbar spine. I did also review with the patient that we may be able to also order x-ray imaging of her right shoulder and that she may benefit from an intra-articular shoulder injection however patient is not interested in this option. I will send in a 2-week supply of baclofen 5 mg 3 times daily and have the patient return to clinic in 1 month for reevaluation of symptoms and plan of care. Patient has been instructed to contact the clinic with any concerns before the next appointment. Dr. Clifford has reviewed this note and agrees with this plan of care. This note was dictated using voice recognition software and make contain errors or omissions. All injections are used with Lidocaine or Bupivacaine and Depo Medrol.
== END 2024-04-02 23:59 | disposition home or self-care (01) ==
PROVIDERS: PCP Family Medicine; Visit Provider Nurse Practitioner Family
DX: M25.511 Pain in right shoulder (principal); Z79.85 Long-term (current) use of injectable non-insulin antidiabetic drugs
CPT/HCPCS: 99212; G0463

== ENCOUNTER 2024-05-08 16:01 | Outpatient (CLI) | payer BC, SELFPAY ==
[2024-05-08 19:29] LABS: Basophils % 0.5 % (0.1-2.0); Eosinophils # 0.2 K/mm3 (0.0-0.4); Eosinophils % 2.7 % (0.1-12.0); Hematocrit 45.2 % (37.0-47.0); Hemoglobin 14.7 g/dL (12.2-16.2); Lymphocytes % 29.5 % (10-50); Mean Corpuscular HGB Conc 32.6 g/dL (31.8-35.4); Mean Corpuscular Hemoglobin 29.4 pg (27.0-31.2); Mean Corpuscular Volume 90.2 fl (81-99); Mean Platelet Volume 10.7 fl (7.4-10.4); Monocytes # 0.4 K/mm3 (0.1-1.0); Monocytes % 5.4 % (1.7-9.3); Neutrophils # 4.2 K/mm3 (1.8-7.8); Neutrophils % 61.9 % (37.0-80.0); Platelet Count 193 K/mm3 (142-424); Red Blood Count 5.01 M/mm3 (4.20-5.40); Red Cell Distribution Width 14.2 % (11.5-17.5); White Blood Count 6.7 K/mm3 (4.8-10.8)
[2024-05-08 19:37] LABS: Alanine Aminotransferase 37 U/L (12-78); Albumin/Globulin Ratio 1.4 (1.1-1.8); Alkaline Phosphatase 121 U/L (38-126); Anion Gap 9.1 mEq/L (5-15); Aspartate Amino Transferase 36 U/L (14-36); Bilirubin,Total 0.9 mg/dl (0.2-1.3); Blood Urea Nitrogen 10 mg/dl (7-17); Calcium 9.2 mg/dl (8.4-10.2); Carbon Dioxide 25 mmol/L (22.0-30.0); Chloride 103 mmol/L (98-107); Chol/HDL Ratio 3.6 (1-3.5); Cholesterol 174 mg/dl (140-200); Estimated Glomerular Filt Rate 125 ml/min (>60); GFR (African American) 151 ML/MIN (>60); Globulin 2.8 g/dL (1.3-3.2); Glucose 273 mg/dl (74-100); HDL Cholesterol 49 mg/dl (40-60); Magnesium 1.5 mg/dl (1.6-2.3); Potassium 4.1 mmoL/L (3.5-5.1); Sodium 133 mmol/L (136-145); Total Protein,Serum 6.8 g/dl (6.3-8.2); Triglycerides 114 mg/dl (30-150); VLDL Cholesterol 23 mg/dL (0-40)
[2024-05-08 19:55] LABS: 25-OH Vitamin D, Total 27.6 ng/mL (30-100)
[2024-05-08 20:07] LABS: Hemoglobin A1C 10.2 % (4.0-6.0)
[2024-05-08 20:09] LABS: Thyroid Stimulating Hormone 1.42 uIU/mL (0.465-4.68)
[2024-05-08 20:44] LABS: Vitamin B12 884 pg/mL (239-931)
[2024-05-08 21:36] LABS: Ferritin 257 ng/ml (11.1-264)
== END 2024-05-08 23:59 | disposition home or self-care (01) ==
LOC: LAB.DROPOF 05-09 16:01
PROVIDERS: PCP Student in an Organized Health Care Education/Training Program; Visit Provider Student in an Organized Health Care Education/Training Program
DX: Z13.21 Encounter for screening for nutritional disorder (principal); E11.9 Type 2 diabetes mellitus without complications; R39.9 Unspecified symptoms and signs involving the genitourinary system; R25.2 Cramp and spasm; Z79.84 Long term (current) use of oral hypoglycemic drugs
CPT/HCPCS: 80050; 80053; 80061; 82306; 82607; 82728; 82746; 83036; 83735; 84443; 85025; 87086; 87088; 87186

== ENCOUNTER 2024-05-24 09:31 | Outpatient (POV) | payer BC, SELFPAY ==
--- NOTE | 2024-05-24 09:56 | A.OFFVIS_ITS ---
[facility] Disclaimer: The information contained in this section may have been updated after the patient was seen, as this information can be updated by other users. Medical History Adrenal tumor Lumbar disc disease Back pain Migraine Hypertension Diabetes Surgical History History of partial hysterectomy Hx of section Hx of cholecystectomy Family History (Updated 05/11/24 @ 21:49 by KARLI Méndez) Mother Cancer Father Cancer Other Unknown family medical history Social History Smoking Status: Never smoker alcohol intake: never current occupational status: unemployed Travel in the last 8 weeks: None PM Subjective & Objective Subjective Subjective:: Patient is a pleasant 64-year-old female who presents today for follow-up. Today she rates her pain an 8 out of 10. She denies any new trauma or injury. She does state that the baclofen 5 mg 3 times daily that we sent in did help. Patient denies any side effects from it. Patient also denies any other changes from her last visit. Patient was discussed regarding possible injection therapy however she states she is still not necessarily a fan of injections and would like to wait. Her Mathieu has been reviewed and is appropriate. Review of Systems: General: No recent weight changes, no fever, no sleep disturbances Respiratory: No cough, no shortness of air, no recurring pulmonary infections Cardiovascular/peripheral vascular: No chest pain, no palpitations, no edema, no shortness of breath Gastrointestinal: No new onset incontinence, normal bowel movements reported Genitourinary: No new onset incontinence Musculoskeletal: Low back pain Psychiatric: [Normal mood/affect] Neurological: [Denies weakness in extremities], [denies balance issues] Pain at rest (0-10 scale): 8 Objective Objective:: Physical Exam: General: Alert and oriented x3, no acute distress, pleasant and cooperative Lungs: Respirations even and unlabored, symmetrical chest expansion Eyes: PERRL Musculoskeletal: Flexion and extension of lumbar [spine] somewhat guarded secondary to pain, [antalgic gait noted] Neurological: Speech clear, no gross sensory deficit Has patient had previous pain injection?: No Conservative treatment options previously tried: Home exercise plan Length of treatment: Longer than 12 weeks Meds Home Medications and Allergies Home Medications ?Medication ?Instructions ?Recorded ?Confirmed ?Type carvedilol 25 mg tablet 25 mg PO DAILY 01/30/24 05/08/24 History spironolactone 25 mg tablet 25 mg PO DAILY 01/30/24 05/08/24 History blood-glucose meter (Accu-Chek #1 ea 01/31/24 05/08/24 Rx Guide Glucose Meter) lancets (Accu-Chek Softclix #100 ea 01/31/24 05/08/24 Rx Lancets) meloxicam 15 mg tablet 15 mg PO DAILY #14 tabs 02/23/24 05/08/24 Rx baclofen 5 mg tablet 5 mg PO TID #42 tabs 04/02/24 05/08/24 Rx blood sugar diagnostic (Accu-Chek #50 ea 04/03/24 05/08/24 Rx Guide test strips) cefdinir 300 mg capsule 300 mg PO BID #14 caps 05/08/24 05/08/24 Rx fluconazole 150 mg tablet 150 mg PO Q3D 2 doses #2 tabs 05/08/24 05/08/24 Rx atorvastatin 40 mg tablet 40 mg PO DAILY #100 tabs 05/10/24 05/10/24 Rx cholecalciferol (vitamin D3) 1,250 1,250 mcg PO WEEKLY #14 caps 05/10/24 05/10/24 Rx mcg (50,000 unit) capsule empagliflozin 10 mg tablet 10 mg PO DAILY #30 tabs 05/10/24 Rx (Jardiance) nitrofurantoin 100 mg PO Q12H 7 days #14 caps 05/10/24 05/10/24 Rx monohydrate/macrocrystals 100 mg capsule New Prescriptions to Start Prescriptions: Allergies Allergy/AdvReac Type Severity Reaction Status Date / Time latex Allergy Verified 05/08/24 13:05 metformin AdvReac Unknown Gastrointestinal Verified 05/11/24 21:40 Upset Assessment and Plan *Assessment and plan (1) Lumbar radiculopathy: Status: Acute Category: Medical Code(s): M54.16 - Radiculopathy, lumbar region (2) Degenerative disc disease, lumbar: Status: Acute Qualifiers: Disc-related pain type: unspecified whether pain present Qualified Code(s): M51.369 - Other intervertebral disc degeneration, lumbar region without mention of lumbar back pain or lower extremity pain Category: Medical Code(s): M51.36 - Other intervertebral disc degeneration, lumbar region Plan I will refill the patient's baclofen and change it to 4 times per day. Patient was counseled that she can take 2 tablets at night to see if this helps additionally. Patient will be given a 3-month supply of this medication and return to clinic in 3 months for reevaluation of symptoms and plan of care. Patient has been instructed to contact the clinic with any concerns before the next appointment. Dr. Clifford has reviewed this note and agrees with this plan of care. This note was dictated using voice recognition software and make contain errors or omissions. All injections are used with Lidocaine or Bupivacaine and Depo Medrol.
[2024-05-24 11:03] VITALS: BP 168/115; PULSE 88; RESP 16; O2SAT 96; BMI 38.0
== END 2024-05-24 23:59 | disposition home or self-care (01) ==
PROVIDERS: PCP Student in an Organized Health Care Education/Training Program; Visit Provider Nurse Practitioner Family
DX: M51.16 Intervertebral disc disorders with radiculopathy, lumbar region (principal)
CPT/HCPCS: 99212; G0463

== ENCOUNTER 2024-06-05 13:16 | Outpatient (CLI) | payer BC, SELFPAY ==
[2024-06-05 17:52] LABS: Microscopic, Urine URINE MICROSCOPIC (MICROSCOPIC)
[2024-06-05 18:15] LABS: Appearance,Urine CLEAR (Clear); Bilirubin,Urine Negative (Negative); Blood, Urine Negative (Negative); Color,Urine YELLOW (Yellow); Glucose,Urine (UA) 3+ (Negative); Ketones,Urine TRACE (Negative); Leukocyte Esterase,Urine Negative (Negative); Nitrate,Urine Negative (Negative); PH,Urine 5.5 (5.0-8.5); Protein,Urine Negative (Negative); Specific Gravity, Urine 1.025 (1.005-1.030); Urobilinogen,Urine 0.2 EU/dl (0.2)
[2024-06-05 20:46] LABS: RBC,Urine Occasional #/hpf (0-3); WBC,Urine Occasional #/hpf (0-3)
[2024-06-05 20:47] LABS: Bacteria,Urine Trace /lpf; Mucus,Urine Trace /lpf; Squamous Epithelial Cell,Urine Occasional #/hpf (0-5)
== END 2024-06-05 23:59 | disposition home or self-care (01) ==
LOC: LAB 13:17
PROVIDERS: PCP Student in an Organized Health Care Education/Training Program; Visit Provider Student in an Organized Health Care Education/Training Program
DX: N39.0 Urinary tract infection, site not specified (principal); R00.2 Palpitations
CPT/HCPCS: 81001; 87086; 93225; 93227

== ENCOUNTER 2024-06-06 15:34 | Emergency (ER) | payer BC, SELFPAY ==
[2024-06-06 15:34] VITALS: BP 169/93; PULSE 88; RESP 18; TEMP 37.1; O2SAT 99; BMI 37.9
--- NOTE | 2024-06-06 15:34 | ECG_ITS ---
APPROVED REPORT Exam: Resting ECG HR:79 bpm ECG Measurements Heart Rate 79 AXES HI 199 P 21 QRSd 109 QRS 37 QT 364 T 68 QTc 399 Conclusion SINUS RHYTHM NORMAL ECG UNCONFIRMED REPORT Electronically signed by : REJI GREY, 06/07/2024 06:50:39
--- NOTE | 2024-06-06 15:43 | PC.NURSE ---
DR HENDRICKS AT BEDSIDE
--- NOTE | 2024-06-06 15:48 | XR_ITS ---
PROCEDURE INFORMATION: Exam: XR Chest Exam date and time: 06/06/2024 3:56 PM Age: 64 years old Clinical indication: Shortness of breath; Sternal or substernal pain and other: Palpitations; Additional info: Palpitations, SOA. For a few weeks, worse today TECHNIQUE: Imaging protocol: Radiologic exam of the chest. Views: 2 views. COMPARISON: No relevant prior studies available. FINDINGS: Lungs: No evidence of acute pulmonary disease or infiltrates Pleural spaces: No large effusion or pneumothorax. Heart/Mediastinum: No evidence of mediastinal widening or cardiac silhouette enlargement; the mediastinum and heart appear within normal limits for contour and size. Diaphragm: There is elevation of the right hemidiaphragm. Bones/joints: No evidence of acute osseous abnormalities within the visualized portions of the thoracic spine and ribs. Osseous structures appear appropriate for patient age. IMPRESSION: No dense parenchymal consolidation, pleural effusion, or pneumothorax.
[2024-06-06 15:54] VITALS: BP 169/93; PULSE 75; RESP 16; O2SAT 94
[2024-06-06 16:00] VITALS: BP 163/100; PULSE 76; RESP 14; O2SAT 95
--- NOTE | 2024-06-06 16:02 | ED_ITS ---
Discharge Plan Disposition Patient Disposition: Home, Self-Care Condition: Good Prescriptions Prescriptions: No Action (DME) lancets [Accu-Chek Softclix Lancets] Misc See Rx Instructions .ROUTE .MEDSUPPLY Qty: 100 2RF Rx Instructions: As directed (DME) blood-glucose meter [Accu-Chek Guide Glucose Meter] Misc See Rx Instructions .ROUTE .MEDSUPPLY Qty: 1 0RF Rx Instructions: As directed cefdinir 300 mg capsule 300 mg PO BID Qty: 14 0RF nitrofurantoin monohyd/m-cryst 100 mg capsule 100 mg PO Q12H 7 Days Qty: 14 0RF Rx Instructions: must administer with a meal/food atorvastatin 40 mg tablet 40 mg PO DAILY Qty: 100 3RF cholecalciferol (vitamin D3) 1,250 mcg (50,000 unit) capsule 1,250 mcg PO WEEKLY Qty: 14 1RF fluconazole 150 mg tablet 150 mg PO Q3D 0 Days Qty: 2 0RF Rx Instructions: may repeat second dose 72 hrs after first dose if symptoms persist pioglitazone 15 mg tablet 15 mg PO DAILY Qty: 30 2RF (DME) Accu-Chek Guide test strips Strip See Rx Instructions .ROUTE .MEDSUPPLY Qty: 50 2RF Rx Instructions: As directed BID carvedilol 25 mg Tablet 25 mg PO DAILY spironolactone 25 mg Tablet 25 mg PO DAILY meloxicam 15 mg tablet 15 mg PO DAILY Qty: 14 0RF baclofen 5 mg tablet 5 mg PO QID Qty: 120 0RF Referrals Follow up/Referrals: Shelly Lopez PA [Primary Care Provider] - See instructions Adrian Jones MD [Staff Physician] - See instructions Activity Restrictions/Add. Instructions Additional Instructions/Restrictions: You were evaluated in the emergency department today. You were found to have frequent premature ventricular complexes or PVCs. I feel this is likely the cause of your symptoms. Please await the results of your outpatient heart monitor study. Please follow-up closely with cardiology. I provided you with information for Dr. Jones. Contact their office to schedule an appointment. Make sure you are staying hydrated. Follow-up with your primary care provider for recheck of your thyroid hormones. Return to the emergency department for new or worsening symptoms Clinical Impressions Clinical Impression: Heart palpitations, Frequent PVCs, Elevated serum free T4 level Stand Alone Forms Stand Alone Forms: Work/School Release Instructions Patient Instructions: DI for Atypical Chest Pain, DI for Arrhythmias, DI for Palpitations Print Language Print Language: Khmer Discharge ED Provider: Marisol Menendez HPI General Chief Complaint: Chest Pain Stated Complaint: Chest Pain Time Seen by Provider: 06/06/24 15:37 Mode of Arrival: Ambulatory Source of Information: Patient Limitations: No Limitations Description of Symptoms (Recalled from ER Triage Doc. by RN): PT C/O ONGOING GURGLING FEELING IN HER CHEST X 2 WEEKS. TODAY SHE NOTICED A PINCHING PAIN IN HER CHEST AFTER FINDING DAUGHTER IS HAVING A MISCARRIAGE. REPORTS SHORTNESS OF BREATH AND NAUSEA History of Present Illness HPI narrative: This patient is a 64-year-old female with a history of obesity, hypertension, diabetes, and CLEMENT presenting to the emergency department for evaluation with concern for fluttering in her chest. She notes that this has been going on for about 2 weeks now, for which she seen her primary care provider. She states that it started whenever they put her on Jardiance, which she has since stopped taking. She notes that the fluttering has still been happening, and today whenever her daughter had gotten home she found out that she was having a miscarriage and started feeling a pinching pain in her chest. She notes that whenever she gets these pains and flutters, it sends her into a full-blown panic. She denies experiencing pinching pain like this in the past. She is not currently having any pain at this time. She does note associated shortness of breath and nausea, but no diaphoresis, calf pain or swelling. No history of blood clots or clotting issues. 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 Related Data Home Medications ?Medication ?Instructions ?Recorded ?Confirmed carvedilol 25 mg tablet 25 mg PO DAILY 01/30/24 06/05/24 spironolactone 25 mg tablet 25 mg PO DAILY 01/30/24 06/05/24 Previous Rx's ?Medication ?Instructions ?Recorded blood-glucose meter (Accu-Chek #1 ea 01/31/24 Guide Glucose Meter) lancets (Accu-Chek Softclix #100 ea 01/31/24 Lancets) meloxicam 15 mg tablet 15 mg PO DAILY #14 tabs 02/23/24 blood sugar diagnostic (Accu-Chek #50 ea 04/03/24 Guide test strips) cefdinir 300 mg capsule 300 mg PO BID #14 caps 05/08/24 atorvastatin 40 mg tablet 40 mg PO DAILY #100 tabs 05/10/24 cholecalciferol (vitamin D3) 1,250 1,250 mcg PO WEEKLY #14 caps 05/10/24 mcg (50,000 unit) capsule nitrofurantoin 100 mg PO Q12H 7 days #14 caps 05/10/24 monohydrate/macrocrystals 100 mg capsule baclofen 5 mg tablet 5 mg PO QID #120 tabs 05/24/24 fluconazole 150 mg tablet 150 mg PO Q3D 2 doses #2 tabs 06/05/24 pioglitazone 15 mg tablet 15 mg PO DAILY #30 tabs 06/05/24 Allergies Allergy/AdvReac Type Severity Reaction Status Date / Time latex Allergy Verified 06/05/24 09:00 metformin AdvReac Unknown Gastrointestinal Verified 06/05/24 09:00 Upset PFSH PFS Disclaimer: The information contained in this section may have been updated after the patient was seen, as this information can be updated by other users. Medical History Adrenal tumor Lumbar disc disease Back pain Migraine Hypertension Diabetes Surgical History History of partial hysterectomy Hx of section Hx of cholecystectomy Family History Mother Cancer Father Cancer Other Unknown family medical history Social History Smoking Status: Former smoker alcohol intake: never current occupational status: other Travel in the last 8 weeks: None Other Medical History Have you received the Flu Vaccine for this season: No Have you received the Pneumonia Vaccine: No ROS Obtained: Yes All systems reviewed & no additional complaints except as documented Physical Exam General General appearance: alert, in no apparent distress, anxious and obese Head Head exam: atraumatic and normocephalic Eye Eye exam: Present normal appearance, PERRL and EOMI ENT ENT exam: Present normal exam, normal oropharynx, mucous membranes moist and normal external ear exam Neck Neck exam: Present normal inspection, full ROM and trachea midline; Absent tenderness Chest Chest inspection: Present normal inspection and symmetric chest wall rise; Absent tenderness Respiratory Respiratory exam: Present normal lung sounds bilaterally; Absent respiratory distress, wheezes, stridor or accessory muscle use Cardiovascular Cardiovascular exam: Present regular rate, normal rhythm and other (occasional PVC's) Abdominal Exam Abdominal exam: Present soft; Absent distention, tenderness or guarding Extremities Exam Extremities exam: Present normal inspection, full ROM and normal capillary refill; Absent tenderness or edema Back Exam Back exam: Present normal inspection and full ROM; Absent tenderness Neurological Exam Neurological exam: Present alert, oriented X3, CN II-XII intact and normal gait; Absent motor sensory deficit Psychiatric Psychiatric exam: Present anxious Skin Skin exam: Present warm and dry HEART Score HEART Score HEART Score assessment performed?: Yes History (anamnesis): Slightly suspicious ECG: Normal Age: 45-65 years Risk factors: 1-2 risk factors Troponin: </= normal limit HEART Score: 2 Critical Care Critical Care Time Critical Care Time: No Medical Decision Making Medical Records Medical records reviewed: Yes I reviewed the patient's medical records. Mathieu Inquiry Pt receiving controlled substance: No Vital Signs Vital Signs: 06/06/24 15:34 06/06/24 15:54 06/06/24 16:00 Temperature 98.7 F Temperature Source Oral Pulse Rate 75 76 Pulse Rate [Apical] 88 Respiratory Rate 18 16 14 Blood Pressure 169/93 H 163/100 H Blood Pressure [Right Arm] 169/93 H Blood Pressure Mean 126 121 Blood Pressure Mean [Right Arm] 118 Blood Pressure Source [Right Arm] Automatic Cuff Blood Pressure Position [Right Arm] Sitting 02 Sat by Pulse Oximetry 99 94 L 95 Oxygen Delivery Method Room Air Room Air Room Air 06/06/24 16:31 06/06/24 18:28 06/06/24 18:30 Temperature 98.1 F Temperature Source Pulse Rate 71 67 85 Pulse Rate [Apical] Respiratory Rate 19 20 Blood Pressure 150/86 H 148/84 H Blood Pressure [Right Arm] Blood Pressure Mean 107 Blood Pressure Mean [Right Arm] Blood Pressure Source [Right Arm] Blood Pressure Position [Right Arm] 02 Sat by Pulse Oximetry 99 Oxygen Delivery Method Room Air Room Air Lab Data Labs: Lab Results 06/06/24 14:45: WBC 7.6, RBC 4.67, Hgb 13.9, Hct 39.5, MCV 84.7, MCH 29.7, MCHC 35.1, RDW 14.0, Plt Count 167, MPV 9.8, Neut % (Auto) 68.3, Lymph % (Auto) 22.8, [place] % (Auto) 6.2, Eos % (Auto) 2.2, Baso % (Auto) 0.5, Neut # (Auto) 5.2, Lymph # (Auto) 1.7, [place] # (Auto) 0.5, Eos # (Auto) 0.2, Baso # (Auto) 0.0, D-Dimer 0.47, Sodium 138, Potassium 4.1, Chloride 105, Carbon Dioxide 25, Anion Gap 12.1, BUN 11, Creatinine 0.60, Estimated Creat Clear 100, Estimated GFR 101, Est GFR ( Amer) 122, Glucose 250 H, Calcium 9.0, Phosphorus 3.3, Magnesium 1.6, Total Bilirubin 1.1, AST 34, ALT 32, Alkaline Phosphatase 117, Troponin I < 0.01, Total Protein 7.2, Albumin 4.0, Globulin 3.2, Albumin/Globulin Ratio 1.3, TSH 1.11, Thyroxine (T4) 14.3 H, HIV 1&2 Antibody Rapid Nonreactive 06/06/24 17:15: Troponin I < 0.01 06/06/24 14:45 06/06/24 14:45 Response Orders (Tests/Meds): ED MEDICATIONS Discontinued Medications Generic Name Dose Route Start Last Admin Trade Name Freq PRN Reason Stop Dose Admin Magnesium Sulfate 2 gm in 50 mls @ 50 mls/hr 06/06/24 16:39 06/06/24 17:08 Magnesium Sulfate 2gm/50ml Premix IV 06/06/24 17:38 50 mls/hr ONCE ONE Administration ORDERS Category Date Time Status CXR 2 view (NOT portable) [XR chest 2V] Stat Exams 06/06/24 15:48 Completed Complete Blood Count Auto Diff Stat Lab 06/06/24 14:45 Completed Comprehensive Metabolic Panel Stat Lab 06/06/24 14:45 Completed D-Dimer Stat Lab 06/06/24 14:45 Completed HIV (1&2) Antibody Rapid Stat Lab 06/06/24 14:45 Completed Hep C Ab with Reflex to RNA Stat Lab 06/06/24 14:45 Received MAG [Magnesium] Stat Lab 06/06/24 14:45 Completed PHOS [Phosphorous] Stat Lab 06/06/24 14:45 Completed T4 (Thyroxine) Stat Lab 06/06/24 14:45 Completed TSH [Thyroid Stimulating Hormone] Stat Lab 06/06/24 14:45 Completed Trop I [Troponin I] Stat Lab 06/06/24 14:45 Completed Troponin I Q3H Lab 06/06/24 17:15 Completed ECG Data Tracing #1: Attestation: I reviewed this ECG and interpreted as documented below: ECG Narrative: Normal sinus rhythm with a ventricular rate of 79 bpm. Occasional premature complexes. No acute ST changes concerning for ischemia. Normal axis and intervals. ECG initial impression date: 06/06/24 ECG initial impression time: 15:36 MDM Narrative Medical Decision Narrative: In summary, this patient is a 64-year-old female presenting to the Emergency Department for evaluation of fluttering in her chest and twinges of chest pain that happened prior to arrival. Differential diagnoses considered include but are not limited to ACS, dysrhythmia, anxiety, dysrhythmia, PVCs, palpitations, electrolyte derangements, thyroid abnormality, GERD. Ruling out the most morbid conditions drove assessment. It should be noted patient's history includes obesity, hypertension, diabetes which may or may not be at goal therapy. This complicates all aspects of care by increasing patient's risk for morbidity. I reviewed patient's past medical records and noted previous PCP evaluations for adrenal tumor as well as heart fluttering. On exam, the patient is lying in bed in no acute distress. Vitals are reassuring on cardiac telemetry with exception of mild hypertension. She is not tachycardic or hypoxic. She does have frequent PVCs, which she notes coincide with her symptoms of fluttering. PERC criteria cannot be used to exclude PE given patient's age. Workup included CBC, CMP, troponin, magnesium, phosphorus, TSH, T4, D-dimer, chest x-ray, EKG. EKG obtained is reassuring. I independently interpreted chest x-ray prior to the radiologist read and noted no acute focal consolidation or concerns for edema. Please see their read for final interpretation. Labs were obtained that demonstrated negative D-dimer, negative initial troponin. T4 is mildly elevated. TSH in WNL. Patient has borderline hypomagnesemia with lower limits of normal at 1.6. Based on her symptomatic frequent PVCs, we will go ahead and replete magnesium. She does have issues with chronic hypomagnesemia. As far as symptomatic management, she is already on beta blockade (carvedilol). On reassessment, patient had is lying comfortably in bed in no acute distress. She is still having frequent PVCs. At 1630, patient was placed in ED observation status pending second troponin, magnesium repletion, and continued monitoring to determine whether or not the patient would be appropriate for discharge versus admission. The patient was provided serial reevaluations and cardiac monitoring while awaiting ultimate disposition. On multiple subsequent reassessments, the patient is lying in bed in no acute distress. She continues to have symptoms associated with PVCs, consisting of fluttering. PVCs were occasional. Second troponin resulted is also negative. Given reassuring workup and exam, it is felt that the patient is appropriate for discharge at this time. She already has close follow-up with cardiology and PCP arranged. Advised that she keep these and give her very strict return precautions. She was deemed to be appropriate for discharge at 1830. total ED observation time was 2 hours.
[2024-06-06 16:07] LABS: Alanine Aminotransferase 32 U/L (12-78); Albumin/Globulin Ratio 1.3 (1.1-1.8); Alkaline Phosphatase 117 U/L (38-126); Anion Gap 12.1 mEq/L (5-15); Aspartate Amino Transferase 34 U/L (14-36); Bilirubin,Total 1.1 mg/dl (0.2-1.3); Blood Urea Nitrogen 11 mg/dl (7-17); Carbon Dioxide 25 mmol/L (22.0-30.0); Chloride 105 mmol/L (98-107); Creatinine Clearance Estimated 100 mL/min (50-200); Estimated Glomerular Filt Rate 101 ml/min (>60); GFR (African American) 122 ML/MIN (>60); Globulin 3.2 g/dL (1.3-3.2); Glucose 250 mg/dl (74-100); Magnesium 1.6 mg/dl (1.6-2.3); Phosphorous 3.3 mg/dl (2.5-4.5); Potassium 4.1 mmoL/L (3.5-5.1); Sodium 138 mmol/L (136-145); Total Protein,Serum 7.2 g/dl (6.3-8.2)
[2024-06-06 16:11] LABS: D-Dimer 0.47 ug/mL (0.0-0.5)
[2024-06-06 16:16] LABS: Basophils % 0.5 % (0.1-2.0); Eosinophils # 0.2 K/mm3 (0.0-0.4); Eosinophils % 2.2 % (0.1-12.0); Hematocrit 39.5 % (37.0-47.0); Hemoglobin 13.9 g/dL (12.2-16.2); Lymphocytes # 1.7 K/mm3 (0.7-4.5); Lymphocytes % 22.8 % (10-50); Mean Corpuscular HGB Conc 35.1 g/dL (31.8-35.4); Mean Corpuscular Hemoglobin 29.7 pg (27.0-31.2); Mean Corpuscular Volume 84.7 fl (81-99); Mean Platelet Volume 9.8 fl (7.4-10.4); Monocytes # 0.5 K/mm3 (0.1-1.0); Monocytes % 6.2 % (1.7-9.3); Neutrophils # 5.2 K/mm3 (1.8-7.8); Neutrophils % 68.3 % (37.0-80.0); Platelet Count 167 K/mm3 (142-424); Red Blood Count 4.67 M/mm3 (4.20-5.40); White Blood Count 7.6 K/mm3 (4.8-10.8)
[2024-06-06 16:25] LABS: T4 (Thyroxine) 14.3 ug/dl (5.53-11.0)
[2024-06-06 16:27] LABS: Troponin I < 0.01 ng/ml (0.00-0.034)
[2024-06-06 16:31] VITALS: BP 150/86; PULSE 71; RESP 19; O2SAT 99
[2024-06-06 16:38] LABS: Thyroid Stimulating Hormone 1.11 uIU/mL (0.465-4.68)
[2024-06-06] MEDS: MAGNESIUM SULFATE IN WATER 2 GM/50 ML PIGGYBACK IV (17:08)
[2024-06-06 17:35] LABS: HIV (1&2) Antibody Rapid NONREACTIVE (NONREACTIVE)
[2024-06-06 18:02] LABS: Troponin I < 0.01 ng/ml (0.00-0.034)
[2024-06-06 18:28] VITALS: BP 148/84; PULSE 67; RESP 20; TEMP 36.7; O2SAT 97
[2024-06-06 18:30] VITALS: PULSE 85
[2024-06-07 09:19] LABS: HCV Ab Non Reactive (Non Reactive)
== END 2024-06-06 18:31 | disposition home or self-care (01) ==
PROVIDERS: Emergency Provider Emergency Medicine; PCP Student in an Organized Health Care Education/Training Program
DX: I49.3 Ventricular premature depolarization (principal); R00.2 Palpitations; R79.89 Other specified abnormal findings of blood chemistry; R07.9 Chest pain, unspecified; R06.02 Shortness of breath; R11.0 Nausea
CPT/HCPCS: 71046; 80050; 80053; 83735; 84100; 84436; 84443; 84484; 85025; 85378; 86803; 87389; 93005; 96365; 99284; J3475

== ENCOUNTER 2024-06-12 11:03 | Outpatient (CLI) | payer BC, SELFPAY | END 2024-06-12 23:59 | disposition home or self-care (01) | LOC: RT 11:05 | PROVIDERS: PCP Student in an Organized Health Care Education/Training Program; Visit Provider Nurse Practitioner | DX: R00.2 Palpitations (principal); R06.09 Other forms of dyspnea; R07.89 Other chest pain | CPT/HCPCS: 93270 ==

== ENCOUNTER 2024-06-14 08:07 | Outpatient (CLI) | payer BC, SELFPAY ==
--- NOTE | 2024-06-14 08:07 | MM_ITS ---
PROCEDURE INFORMATION: Exam: Bilateral Screening 3D Mammography Exam date and time: 06/14/2024 8:12 AM Age: 64 years old Clinical indication: Screening examination. TECHNIQUE: Imaging protocol: Bilateral Screening tomosynthesis and 2D mammography including computer-aided detection (CAD) when performed. COMPARISON: MY Digital Screen BILAT 11/26/2020 10:55 AM FINDINGS: MAMMOGRAPHY: Breast composition: There are scattered areas of fibroglandular density. Mass: None. Architectural distortion: None. Calcifications: No suspicious calcifications. Asymmetric density: None. Skin thickening: None. Axillary adenopathy: None. IMPRESSION: No mammographic evidence of malignancy. Annual screening is recommended unless otherwise clinically indicated. ASSESSMENT: BI-RADS Category 1: Negative.
== END 2024-06-14 23:59 | disposition home or self-care (01) ==
LOC: RAD 08:07
PROVIDERS: PCP Student in an Organized Health Care Education/Training Program; Visit Provider Student in an Organized Health Care Education/Training Program
DX: Z12.31 Encounter for screening mammogram for malignant neoplasm of breast (principal)
CPT/HCPCS: 77063; 77067

== ENCOUNTER 2024-06-22 11:07 | Outpatient (CLI) | payer BC, SELFPAY ==
[2024-06-22 18:49] LABS: Basophils # 0.1 K/mm3 (0-0.2); Eosinophils # 0.2 K/mm3 (0.0-0.4); Eosinophils % 3.6 % (0.1-12.0); Hematocrit 43.8 % (37.0-47.0); Hemoglobin 14.8 g/dL (12.2-16.2); Lymphocytes # 1.8 K/mm3 (0.7-4.5); Lymphocytes % 26.7 % (10-50); Mean Corpuscular HGB Conc 33.9 g/dL (31.8-35.4); Mean Corpuscular Hemoglobin 28.9 pg (27.0-31.2); Mean Corpuscular Volume 85.3 fl (81-99); Mean Platelet Volume 10.4 fl (7.4-10.4); Monocytes # 0.5 K/mm3 (0.1-1.0); Monocytes % 6.7 % (1.7-9.3); Neutrophils # 4.2 K/mm3 (1.8-7.8); Platelet Count 178 K/mm3 (142-424); Red Blood Count 5.13 M/mm3 (4.20-5.40); Red Cell Distribution Width 14.1 % (11.5-17.5); White Blood Count 6.7 K/mm3 (4.8-10.8)
[2024-06-22 18:58] LABS: Alanine Aminotransferase 31 U/L (12-78); Albumin Level 3.8 g/dl (3.5-5.0); Albumin/Globulin Ratio 1.4 (1.1-1.8); Alkaline Phosphatase 126 U/L (38-126); Anion Gap 13.3 mEq/L (5-15); Aspartate Amino Transferase 34 U/L (14-36); Bilirubin,Total 0.8 mg/dl (0.2-1.3); Blood Urea Nitrogen 11 mg/dl (7-17); Carbon Dioxide 25 mmol/L (22.0-30.0); Chloride 104 mmol/L (98-107); Estimated Glomerular Filt Rate 125 ml/min (>60); GFR (African American) 151 ML/MIN (>60); Globulin 2.8 g/dL (1.3-3.2); Glucose 184 mg/dl (74-100); Magnesium 1.8 mg/dl (1.6-2.3); Potassium 4.3 mmoL/L (3.5-5.1); Sodium 138 mmol/L (136-145); Total Protein,Serum 6.6 g/dl (6.3-8.2)
== END 2024-06-22 23:59 | disposition home or self-care (01) ==
LOC: LAB.DROPOF 06-25 10:59
PROVIDERS: PCP Student in an Organized Health Care Education/Training Program; Visit Provider Student in an Organized Health Care Education/Training Program
DX: E83.42 Hypomagnesemia (principal); Z90.710 Acquired absence of both cervix and uterus
CPT/HCPCS: 80053; 83735; 85025

== ENCOUNTER 2024-06-27 08:16 | Outpatient (CLI) | payer BC, SELFPAY ==
--- NOTE | 2024-06-27 08:21 | CA_ITS ---
APPROVED REPORT EXAM: Comprehensive 2D, Doppler, and color-flow Echocardiogram Hatchery Helper: Nilsa Villagran RT(R) Ht: 5 ft 7 in Wt: 242lbs BSA: 2.19 BP: 149/83 mmHg Indications: LV function, palpitations, CP, HTN, DM, SOB, fatigue 2D Dimensions LA Volume 39.40 mL LA Volume Index 17.99 mL/m2 (M/F) 16-34 EF AP4 54.10 % GL Strain -17.0 % M-Mode Dimensions RVDd 3.14 cm (0.9-2.6) LA Diam 3.66 cm (1.9-4.0) LVDd 5.09 cm (3.5-5.7) LVDs 3.56 cm (3.5-5.7) IVSd 0.98 cm (0.6-1.1) PWd 0.98 cm (0.6-1.1) EF (Teich) 57.00% FS 30.10% EDV (Teich) 123.20 mL ESV (Teich) 53.00 mL LV Diastology E Decel Time 150 (160-240 msec) E/A Ratio 0.8 Mitral Valve MV E Max Azael. 71.0 (40-130 cm/s) MV A Velocity 94.0 (40-130 cm/s) E/A Ratio 0.75 MV PHT 44.0 ms Left Ventricle The left ventricle is normal size. The left ventricular systolic function is normal. The left ventricular ejection fraction is within the normal range. There is increased LV wall thickness. There is normal LV segmental wall motion. Transmitral Doppler flow pattern suggests impaired LV relaxation. LVEF is 60%. Right Ventricle The right ventricle is normal size. The right ventricular systolic function is normal. Atria The left atrium size is normal. The right atrium size is normal. There is no Doppler evidence of interatrial shunt. Aortic Valve The aortic valve opens well. There is no aortic valvular stenosis. No aortic regurgitation is present. Mitral Valve The mitral valve is normal in structure. No evidence of mitral valve stenosis. Trace mitral regurgitation. Tricuspid Valve The tricuspid valve leaflets are thin and pliable. Trace tricuspid regurgitation. There is insufficient TR jet to estimate RVSP. Pulmonic Valve The pulmonary valve is normal in structure. Trace pulmonic regurgitation. Great Vessels The aortic root is normal in size. The ascending aorta is normal in size. IVC is normal in size and collapses >50% with inspiration. Pericardium There is no pericardial effusion. Other Information Study Quality: Adequate Conclusion Normal biventricular systolic function. No significant valvular stenosis or regurgitation. Electronically signed by : Jovanna Campbell MD 07/08/2024 22:17:33
--- NOTE | 2024-06-27 08:49 | US_ITS ---
FINAL REPORT CLINICAL HISTORY: cirrhosis rivera x 1oyrs COMPARISON: None FINDINGS: ABDOMINAL ULTRASOUND LIMITED: There is a coarse echotexture of the liver consistent with the clinical diagnosis of cirrhosis. There is a hyperechoic 8 mm focus in the liver that may represent a hemangioma. The gallbladder has been surgically resected. The common bile duct is normal, measuring 3 mm in diameter. The pancreas is poorly visualized secondary to overlying bowel gas. There is a 2.8 cm hypoechoic focus in the right kidney consistent with a right renal cyst. IMPRESSION: Coarse echotexture of the liver, consistent with cirrhosis. There is a hyperechoic focus, 8 mm in size, noted in the liver, likely a hemangioma. Prior cholecystectomy, no biliary ductal dilatation. 2.8 cm right renal cyst. Reviewed, Interpreted and Dictated by Camron Edwards MD Transcribed by Christel Pettit Authenticated and [facility]
== END 2024-06-27 23:59 | disposition home or self-care (01) ==
PROVIDERS: PCP Student in an Organized Health Care Education/Training Program; Referring Provider Nurse Practitioner Family; Visit Provider Nurse Practitioner
DX: R06.09 Other forms of dyspnea (principal); R07.89 Other chest pain; R00.2 Palpitations; K74.60 Unspecified cirrhosis of liver
CPT/HCPCS: 76705; 93306

== ENCOUNTER 2024-06-27 09:21 | Emergency (ER) | payer BC, SELFPAY ==
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
[2024-06-27 10:30] VITALS: BP 147/90; PULSE 70; RESP 20; TEMP 36.8; O2SAT 98; BMI 37.9
--- NOTE | 2024-06-27 11:03 | PC.NURSE ---
SPOKE WITH SHEREE GUADALUPE ABOUT LATEX ALLERGY AND ROCEPHIN. SHEREE STATES OK TO GIVE
[2024-06-27] MEDS: LIDOCAINE 1% 5ML PF VIAL IM (11:08)
[2024-06-27] MEDS: cefTRIAXone 1GM VIAL 1 GM IM (11:08)
[2024-06-27 11:20] VITALS: BP 147/90; PULSE 70; RESP 20; TEMP 36.8; O2SAT 98
== END 2024-06-27 11:26 | disposition home or self-care (01) ==
PROVIDERS: Emergency Provider Nurse Practitioner Family; PCP Student in an Organized Health Care Education/Training Program
DX: T21.21XA Burn of second degree of chest wall, initial encounter (principal); E11.9 Type 2 diabetes mellitus without complications; X19.XXXA Contact with other heat and hot substances, initial encounter
CPT/HCPCS: 87070; 87077; 87186; 87205; 96372; 99213; G0381; J0696

== ENCOUNTER 2024-07-11 08:56 | Outpatient (CLI) | payer BC, SELFPAY ==
--- NOTE | 2024-07-11 08:57 | CT_ITS ---
APPROVED REPORT Account Information Clerk: CLINICAL INDICATION Chest Pain TECHNIQUE Image Acquisition: A 128 slice MDCT scanner ([employer] View) was used for data acquisition. A noncontrast coronary calcium scan was performed. A CT attenuation threshold of 130 Hounsfield units (HU) was used for the detection of calcium in contiguous voxels of 1 sq mm in area to be counted as individual lesions. Bolus tracking in the ascending aorta with a threshold of 180 HU was performed. Immediately afterwards, ECG synchronized cardiac CT was then performed from the cardiac base to apex using retrospective gating with ECG tube current modulation. A total of 85 mL of Isovue 370 mg/mL contrast medium was administered at 5 mL/sec followed by a saline flush using a biphasic injection protocol. A tube voltage of 120 KVp was used. The patient received the following medications prior to the cardiac CT. 100 mg of oral metoprolol 15 mg of oral ivabradine 0.8 mg of sublingual nitroglycerin The average heart rate at the time of acquisition was 58 bpm and regular. Image Reconstruction Transaxial images were reconstructed at 0.67 mm slide thickness. Data was reviewed interactively on an advanced workstation capable of 2 and 3-dimensional displays in all conventional reconstruction formats, including multiplanar reformations, maximum intensity projections, curved multiplanar reformations, and volume rendered reconstructions. When applicable, selected routine images describing the relevant coronary anatomy and pathology were saved and sent to PACS. Complications None Technical Quality Overall image quality was good. Coronary artery opacification was adequate. Total DLP (Dose-Length Product) is 1278.1 mGy-cm. The reported value represents the total of one or more individual components during the CT acquisition of this date and at this time, and as such, the same value may appear in more than one CT report depending on the interpreting/reporting physicians. COMPARISON None FINDINGS CT Coronary Calcium Scoring LMA (Left Main Artery) = 0 LAD (Left Anterior Descending) = 0 LCX (Left Coronary Circumflex) = 0 RCA (Right Coronary Artery) = 0 Total Calcium Score = 0 using the AJ-130 method. The interpretation of the calcium heart score is based on the following continuum*: 0 = no calcified plaque detected (risk of coronary artery disease is very low ??? less than 5%) 1-10 = calcium detected in extremely minimal levels (risk of coronary diseases is still low ??? less than 10%) 11-100 = mild levels of plaque detected with certainty (mild or minimal narrowing of heart arteries is likely) 101-400 = definite,at least moderate levels of plaque detected (relatively high risk of a heart attack within 3-5 years) >401-999 = extensive levels of plaque detected (high risk of heart attack, high levels of vascular disease are present, high likelihood of at least one significant coronary narrowing) *The calcium heart score quantifies the burden of coronary calcification/plaque in the coronary arteries. The calcium heart score is not able to evaluate the presence or burden of non-calcified (i.e. soft) plaque. There is no identifiable calcification in the aortic valve, mitral annulus or mitral valve, pericardium, or myocardium. Coronary CT Angiography The coronary arterial system is right dominant. Quantitative Stenosis Grading: Left Main (LM): The left main originates normally from the left sinus of Valsalva. The LM bifurcates into the left anterior descending artery and left circumflex artery. The LM is patent with no evidence of atherosclerosis. Left Anterior Descending (LAD) and Diagonal Branches: The LAD gives off 3 diagonal branch(es). The LAD and its branches are patent with no evidence of atherosclerosis. There is no evidence of LAD-myocardial bridge. Ramus-intermedius (RI): The RI is patent. Left Circumflex (LCX) and Obtuse Marginals (OM): The LCX gives off 1 Obtuse Marginal (OM) branch(es). The LCX and its branches are patent with no evidence of atherosclerosis. Right Coronary Artery (RCA): The RCA originates normally from the right sinus of Valsalva. The RCA gives off a posterior descending artery (PDA) and posterolateral (PL) branches. The RCA and its branches are patent with no evidence of atherosclerosis. Non-Coronary Cardiac Findings: Analysis of the left ventricular (LV) structure and function was performed after 3-D reconstruction of the LV from axial images, with user-corrected automatic contouring for assessment of LV volumes and user-defined reconstruction from oblique planes for measurement of 3-D cardiac structure and function. -The left ventricle systolic function is normal. -There is no left atrial appendage filling defect. Two right pulmonary veins and two left pulmonary veins drain normally into the left atrium. -No pericardial thickening or calcification. -Central and branch pulmonary arteries in the [id number] are unremarkable. -Thoracic aorta within the visualized thoracic aortic-branches in the [id number] is unremarkable. Extracardiac Structures No significant extra-cardiac findings. Note, however, that this study is focused on the cardiac findings. IMPRESSION -Absence of coronary calcification with an Agatston score = 0 using the AJ-130 method. -No evidence of significant flow-limiting atherosclerosis of the coronary arteries. -CAD-RADS 0. Management recommendations per ACC/AHA guidelines*, as clinically appropriate. *Recommendations: CAD RADS 0: Reassurance. Consider non-atherosclerotic causes of chest pain. CAD RADS 1: Consider non-atherosclerotic causes of chest pain. Consider preventive therapy and risk factor modification. CAD RADS 2: Consider non-atherosclerotic causes of chest pain. Consider preventive therapy and risk factor modification, particularly for patients with nonobstructive plaque in multiple segments. CAD RADS 3: Consider further functional testing. Consider symptom-guided anti-ischemic and preventive pharmacotherapy as well as risk factor modification per published guideline statements. CAD RADS 4A: Consider further functional testing or invasive coronary angiography with revascularization per published guideline statements. Consider symptom-guided anti-ischemic and preventive pharmacotherapy as well as risk factor modification per published guideline statements. CAD RADS 4B: Invasive coronary angiography recommended with revascularization per published guideline statements. Consider symptom-guided anti-ischemic and preventive pharmacotherapy as well as risk factor modification per published guideline statements. CAD RADS 5: Consider invasive angiography and/or viability assessment with revascularization per published guideline statements. Consider symptom-guided anti-ischemic and preventive pharmacotherapy as well as risk factor modification per published guideline statements. CRITICAL RESULT None COMMUNICATION Per this written report The coronary and cardiac findings of this CCTA were reviewed, reported, and signed by Ryder Campbell MD (Field Logistics Coordinator) Conclusion Electronically signed by : Jovanna Campbell MD 07/12/2024 12:21:38
[2024-07-11 09:33] VITALS: BP 169/96; PULSE 75; RESP 18; O2SAT 97; BMI 37.9
[2024-07-11] MEDS: IVABRADINE HCL 7.5MG TABLET 15 MG PO (09:33)
[2024-07-11] MEDS: METOPROLOL TARTRATE 25MG TABLET 25 MG ×2 (09:33→10:21)
[2024-07-11] MEDS: METOPROLOL TARTRATE 50MG TABLET 50 MG (09:33)
[2024-07-11 10:28] VITALS: BP 177/78; PULSE 68; RESP 18; O2SAT 97
[2024-07-11] MEDS: NITROGLYCERIN 0.4MG SL TABLET 0.8 MG SL (10:28)
[2024-07-11 10:31] VITALS: BP 155/86; PULSE 59; O2SAT 97
[2024-07-11] MEDS: SODIUM CHLORIDE 0.9% 10ML SYR (RAD ONLY) 10 ML IV (10:37)
[2024-07-11] MEDS: IOPAMIDOL-370 (76%);100ML BOTTLE 85 ML IV (10:37)
[2024-07-11] MEDS: 0.9 % SODIUM CHLORIDE 50 ML VIAL IV (10:37)
[2024-07-11 10:38] VITALS: BP 149/76; PULSE 63; RESP 18; O2SAT 94
== END 2024-07-11 10:45 | disposition home or self-care (01) ==
PROVIDERS: PCP Student in an Organized Health Care Education/Training Program; Visit Provider Nurse Practitioner
DX: R94.31 Abnormal electrocardiogram [ECG] [EKG] (principal); R07.9 Chest pain, unspecified; R06.09 Other forms of dyspnea
CPT/HCPCS: 75574; Q9967

== ENCOUNTER 2024-08-20 14:25 | Outpatient (CLI) | payer MEDICAID, SELFPAY ==
[2024-08-20 17:56] LABS: Basophils % 0.8 % (0.1-2.0); Eosinophils # 0.2 K/mm3 (0.0-0.4); Hematocrit 40.6 % (37.0-47.0); Hemoglobin 13.4 g/dL (12.2-16.2); Lymphocytes # 1.8 K/mm3 (0.7-4.5); Lymphocytes % 33.2 % (10-50); Mean Corpuscular Hemoglobin 27.9 pg (27.0-31.2); Mean Corpuscular Volume 84.6 fl (81-99); Mean Platelet Volume 11.5 fl (7.4-10.4); Monocytes # 0.5 K/mm3 (0.1-1.0); Monocytes % 9.4 % (1.7-9.3); Neutrophils # 2.8 K/mm3 (1.8-7.8); Neutrophils % 52.4 % (37.0-80.0); Platelet Count 151 K/mm3 (142-424); Red Cell Distribution Width 13.2 % (11.5-17.5); White Blood Count 5.3 K/mm3 (4.8-10.8)
[2024-08-20 18:19] LABS: Albumin Level 3.9 g/dl (3.5-5.0); Chloride 105 mmol/L (98-107); Potassium 4.3 mmoL/L (3.5-5.1); Sodium 135 mmol/L (136-145)
[2024-08-20 18:21] LABS: Alanine Aminotransferase 32 U/L (12-78); Albumin/Globulin Ratio 1.3 (1.1-1.8); Anion Gap 8.3 mEq/L (5-15); Aspartate Amino Transferase 34 U/L (14-36); Blood Urea Nitrogen 14 mg/dl (7-17); Carbon Dioxide 26 mmol/L (22.0-30.0); Estimated Glomerular Filt Rate 101 ml/min (>60); GFR (African American) 122 ML/MIN (>60); Globulin 2.9 g/dL (1.3-3.2); Total Protein,Serum 6.8 g/dl (6.3-8.2)
[2024-08-20 18:22] LABS: Alkaline Phosphatase 112 U/L (38-126); Bilirubin,Total 0.9 mg/dl (0.2-1.3); Calcium 9.3 mg/dl (8.4-10.2); Chol/HDL Ratio 3.7 (1-3.5); Cholesterol 175 mg/dl (140-200); Glucose 156 mg/dl (74-100); HDL Cholesterol 47 mg/dl (40-60); Magnesium 1.7 mg/dl (1.6-2.3); Triglycerides 67 mg/dl (30-150); VLDL Cholesterol 13 mg/dL (0-40)
[2024-08-20 18:33] LABS: Direct LDL Cholesterol 103.94 mg/dL (100-129)
[2024-08-20 19:12] LABS: 25-OH Vitamin D, Total 29.9 ng/mL (30-100)
[2024-08-20 21:25] LABS: Hemoglobin A1C 7.5 % (4.0-6.0)
== END 2024-08-20 23:59 | disposition home or self-care (01) ==
LOC: LAB.DROPOF 08-21 13:50
PROVIDERS: PCP Student in an Organized Health Care Education/Training Program; Visit Provider Student in an Organized Health Care Education/Training Program
DX: E55.9 Vitamin D deficiency, unspecified (principal); E11.9 Type 2 diabetes mellitus without complications; E11.65 Type 2 diabetes mellitus with hyperglycemia; Z79.84 Long term (current) use of oral hypoglycemic drugs
CPT/HCPCS: 80053; 80061; 82306; 83036; 83735; 84443; 85025

== ENCOUNTER 2024-10-02 18:47 | Outpatient (CLI) | payer MEDICAID, SELFPAY | END 2024-10-02 23:59 | disposition home or self-care (01) | LOC: LAB.DROPOF 18:47 | PROVIDERS: PCP Nurse Practitioner; Visit Provider Nurse Practitioner | DX: R30.0 Dysuria (principal) | CPT/HCPCS: 87086 ==

== ENCOUNTER 2024-11-08 10:15 | Outpatient (CLI) | payer MEDICAID, SELFPAY ==
--- NOTE | 2024-11-08 10:18 | XR_ITS ---
FINAL REPORT CLINICAL HISTORY: low back pain COMPARISON: 02/23/2024 FINDINGS: No fracture is identified. There is severe diffuse degenerative disc disease. Facet arthropathy is identified. There is probable canal stenosis and neuroforaminal narrowing in the lower lumbar spine at multiple levels. Alignment is normal. IMPRESSION: Stable advanced degenerative changes. Reviewed, Interpreted and Dictated by Lul Vargas MD Transcribed by Tete De Los Santos Authenticated and [facility]
--- NOTE | 2024-11-08 10:18 | XR_ITS ---
FINAL REPORT CLINICAL HISTORY: low back pain COMPARISON: 02/23/2024 FINDINGS: SACROILIAC JOINTS Three views were obtained. There is no fracture or dislocation. There are mild degenerative changes bilaterally. Vacuum joint change is identified. There is no significant change from previous. No soft tissue abnormality is identified. IMPRESSION: Stable degenerative changes. Reviewed, Interpreted and Dictated by Lul Vargas MD Transcribed by Tete De Los Santos Authenticated and [facility]
== END 2024-11-08 23:59 | disposition home or self-care (01) ==
LOC: RAD 10:16
PROVIDERS: PCP Family Medicine; Visit Provider Family Medicine
DX: M54.50 Low back pain, unspecified (principal); M53.3 Sacrococcygeal disorders, not elsewhere classified
CPT/HCPCS: 72100; 72202

== ENCOUNTER 2024-11-12 13:47 | Emergency (ER) | payer MEDICAID, SELFPAY ==
--- NOTE | 2024-11-12 14:28 | CT_ITS ---
PROCEDURE INFORMATION: Exam: CT Abdomen And Pelvis With Contrast Exam date and time: 11/12/2024 4:22 PM Age: 64 years old Clinical indication: Abdominal pain; Flank; Right; Additional info: Right-sided flank pain, nausea and vomiting TECHNIQUE: Imaging protocol: Computed tomography of the abdomen and pelvis with contrast. Radiation optimization: All CT scans at this facility use at least one of these dose optimization techniques: automated exposure control; mA and/or kV adjustment per patient size (includes targeted exams where dose is matched to clinical indication); or iterative reconstruction. Contrast material: ISOVUE; Contrast volume: 75 ml; Contrast route: IV; COMPARISON: CT ABDOMEN PELVIS W CON 01/22/2024 7:59 AM FINDINGS: Lungs: The visualized lung bases demonstrate no focal infiltrates. Liver: The liver appears within normal limits. Gallbladder and biliary ducts: There has been a cholecystectomy. Pancreas: The pancreas is normal. Spleen: The spleen is normal. Adrenal glands: Bilateral subcentimeter adrenal adenomas. Stable. Kidneys and ureters: Simple cysts right kidney midzone 3.1 cm. Partially calcified rim cyst right kidney lower pole measures 3 mm, unchanged. Stomach and bowel: The stomach appears within normal limits. No wall thickening or inflammatory change. There are changes of diverticulosis without evidence for diverticulitis noted within the sigmoid colon.. Appendix: No evidence of appendicitis. Intraperitoneal space: No free air. No evidence for focal fluid collection or ascites. No evidence for omental thickening. Vasculature: Unremarkable. No abdominal aortic aneurysm. Lymph nodes: Unremarkable. No pathologically enlarged lymph nodes are identified. Urinary bladder: The bladder appears within normal limits. No wall thickening. Reproductive: The uterus and adnexal structures appear normal. Bones/joints: Unremarkable. No acute fracture. Soft tissues: Unremarkable. IMPRESSION: 1. Diverticulosis without CT evidence to suggest diverticulitis. 2. No acute abnormalities are identified. COMMENTS: Consistent with the [employer]'s Incidental Findings Committee white paper (J Am Isidra Radiol 2018): Any incidental renal lesion less than 1 cm or classified as too small to characterize, or any incidental cystic renal lesion characterized as simple-appearing, is likely benign. No follow-up imaging is recommended for these lesions per consensus recommendations based on imaging criteria.
--- NOTE | 2024-11-12 14:28 | XR_ITS ---
FINAL REPORT CLINICAL HISTORY: Shortness of air FINDINGS: A single view of the chest was obtained. The heart is normal in size. The mediastinum is unremarkable. There is scarring in the right lung base. The lungs are otherwise clear. There is no pleural effusion. There is no pneumothorax. There is no acute osseous abnormality. IMPRESSION: No acute cardiopulmonary process. Reviewed, Interpreted and Dictated by Camron Edwards MD Transcribed by Shruti Thorpe Authenticated and [facility]
--- NOTE | 2024-11-12 14:29 | CT_ITS ---
PROCEDURE INFORMATION: Exam: CT Lumbar Spine Without Contrast Exam date and time: 11/12/2024 4:20 PM Age: 64 years old Clinical indication: Low back pain; Additional info: Lower back pain, right sided radicular pain TECHNIQUE: Imaging protocol: Computed tomography of the lumbar spine without contrast. Radiation optimization: All CT scans at this facility use at least one of these dose optimization techniques: automated exposure control; mA and/or kV adjustment per patient size (includes targeted exams where dose is matched to clinical indication); or iterative reconstruction. COMPARISON: CR XR LUMBAR SPINE 2-3V 11/08/2024 10:23 AM FINDINGS: Bones/joints: No acute fracture. Moderate degenerative disc space loss is identified at L3-L4, L4-L5, L5-S1. Probable severe spinal stenosis at the level of L2-L3 with a presence of a 6 mm AP dimension calcified disc bulge. Severe left facet arthropathy at L4-L5 resulting in severe left neural foraminal stenosis. Probable moderate spinal stenosis at L4-L5. Severe left and moderate right neural foraminal stenosis at L5-S1 due to moderate bilateral facet arthropathy. Soft tissues: Unremarkable. IMPRESSION: 1. No evidence for acute fracture. 2. Moderate degenerative disc space loss is identified at L3-L4, L4-L5, L5-S1. Probable severe spinal stenosis at the level of L2-L3 with a presence of a 6 mm AP dimension calcified disc bulge. 3. Severe left facet arthropathy at L4-L5 resulting in severe left neural foraminal stenosis. 4. Probable moderate spinal stenosis at L4-L5. 5. Severe left and moderate right neural foraminal stenosis at L5-S1 due to moderate bilateral facet arthropathy.
--- NOTE | 2024-11-12 14:31 | ED_ITS ---
<Statement entered by Marisol Menendez DO - 11/12/24 16:17> I was consulted by the DEJAH, and we discussed the complexity of the problems being addressed. I approved the treatment and management plan for this patient's care in the emergency department, thus performing a substantive portion of the medical decision making. I signed out care to the oncoming provider, Dr. Whittaker, at 1500 Marisol Menendez DO Discharge Plan Disposition Patient Disposition: Home, Self-Care Condition: Good Prescriptions Prescriptions: New methocarbamol 750 mg tablet 750 mg PO HS Qty: 30 0RF ondansetron 4 mg tablet,disintegrating 4 mg PO DAILY PRN (Reason: nausea and vomiting) Qty: 14 0RF No Action (DME) lancets [Accu-Chek Softclix Lancets] Misc See Rx Instructions .ROUTE .MEDSUPPLY Qty: 100 2RF Rx Instructions: As directed (DME) blood-glucose meter [Accu-Chek Guide Glucose Meter] Misc See Rx Instructions .ROUTE .MEDSUPPLY Qty: 1 0RF Rx Instructions: As directed (DME) lancets [FreeStyle Lancets] 28 gauge misc See Rx Instructions .ROUTE .MEDSUPPLY Qty: 100 Patient Comments: USE DIRECTED TWICE DAILY Rx Instructions: As directed (DME) blood-glucose meter [FreeStyle Lite Meter] Kit See Rx Instructions .ROUTE .MEDSUPPLY Qty: 1 Patient Comments: USE DIRECTED Rx Instructions: As directed loratadine 10 mg tablet 10 mg PO DAILY PRN (Reason: allergic symptoms) Qty: 60 3RF glimepiride 1 mg tablet 1 mg PO BID hydrocodone-acetaminophen 5-325 mg tablet 1 tab PO Q6H PRN (Reason: pain) Qty: 30 0RF carvedilol 25 mg tablet 25 mg PO DAILY Qty: 30 5RF (DME) Accu-Chek Guide test strips Strip See Rx Instructions .ROUTE .MEDSUPPLY Qty: 50 2RF Rx Instructions: As directed BID pioglitazone 30 mg tablet 30 mg PO DAILY Qty: 30 2RF cholecalciferol (vitamin D3) 1,250 mcg (50,000 unit) capsule 1,250 mcg PO WEEKLY Qty: 12 0RF magnesium chloride 64 mg tablet,delayed release (DR/EC) 64 mg PO BID Qty: 60 0RF aspirin 81 mg Capsule 81 mg PO DAILY Referrals Follow up/Referrals: Callum Johnston MD [Primary Care Provider] - See instructions Clinical Impressions Clinical Impression: Lumbar radiculopathy Degenerative disc disease, lumbar Qualifiers: Disc-related pain type: unspecified whether pain present Qualified Code(s): M 51.369 - Other intervertebral disc degeneration, lumbar region without mention of lumbar back pain or lower extremity pain Instructions Patient Instructions: DI for Lumbar Radiculopathy Print Language Print Language: Korean Discharge ED Provider: Marisol Menendez General Adult HPI <KARLI Foster - Last Filed: 11/12/24 19:29> General Chief complaint: Abdominal Pain Stated complaint: Severe R side/back pain. Kidney problems Time Seen by Provider: 11/12/24 14:09 Mode of Arrival: Ambulatory Source of Information: Patient Limitations: No Limitations History of Present Illness HPI narrative: 64-year-old female presents to the emergency department with 4 to 5-day history of right-sided flank pain and right-sided lower back pain, with accompanying nausea vomiting subjective fever chills denies any chest pain or shortness of breath, denies any urinary bladder or bowel dysfunction, does admit to some what sounds like radicular symptomatology in the right anterior lateral aspect associate with numbness and tingling stopping at the knee. Patient does have history of nephrolithiasis as well as lumbar degenerative disc disease. Of note, around 4 weeks ago she started having this back pain, no trauma or injury per history, had x-ray/plain films performed at her primary care office which were negative. She denies any constipation diarrhea or no real abdominal pain, denies any other urinary type symptomatology to include hematuria melena hematochezia hematemesis or hemoptysis, or any dysuria or frequency. Other past medical history consistent with CLEMENT, type 2 diabetes, obesity, hypertension, history of adrenal polyp , she is a former smoker, denies any alcohol or drug use. Triage vitals unremarkable. Onset (ago): day(s) Related Data Home Medications ?Medication ?Instructions ?Recorded ?Confirmed glimepiride 1 mg tablet 1 mg PO BID Type 2 06/12/24 11/08/24 blood-glucose meter (FreeStyle #1 ea 06/21/24 11/08/24 Lite Meter kit) lancets 28 gauge (FreeStyle #100 ea 06/21/24 11/08/24 Lancets) aspirin 81 mg capsule 81 mg PO DAILY 07/11/24 11/08/24 Previous Rx's ?Medication ?Instructions ?Recorded blood-glucose meter (Accu-Chek #1 ea 01/31/24 Guide Glucose Meter) lancets (Accu-Chek Softclix #100 ea 01/31/24 Lancets) blood sugar diagnostic (Accu-Chek #50 ea 04/03/24 Guide test strips) loratadine 10 mg tablet 10 mg PO DAILY PRN allergic 08/20/24 symptoms #60 tabs cholecalciferol (vitamin D3) 1,250 1,250 mcg PO WEEKLY #12 caps 08/21/24 mcg (50,000 unit) capsule magnesium chloride 64 mg 64 mg PO BID #60 tabs 08/21/24 (magnesium chloride) tablet,delayed release pioglitazone 30 mg tablet 30 mg PO DAILY #30 tabs 08/21/24 carvedilol 25 mg tablet 25 mg PO DAILY #30 tabs 11/08/24 hydrocodone 5 mg-acetaminophen 325 1 tab PO Q6H PRN pain #30 tabs 11/08/24 mg tablet methocarbamol 750 mg tablet 750 mg PO HS #30 tabs 11/12/24 ondansetron 4 mg disintegrating 4 mg PO DAILY PRN nausea and 11/12/24 tablet vomiting #14 tabs Allergies Allergy/AdvReac Type Severity Reaction Status Date / Time red dye Allergy Intermediate Verified 11/08/24 09:20 latex Allergy Verified 11/08/24 09:20 metformin AdvReac Unknown Gastrointestinal Verified 11/08/24 09:20 Upset [facility] <KARLI Foster - Last Filed: 11/12/24 19:29> [facility] Disclaimer: The information contained in this section may have been updated after the patient was seen, as this information can be updated by other users. Medical History (Updated 11/12/24 @ 19:28 by KARLI Foster) Sacroiliac pain Low back pain UTI symptoms Kidney stones Adrenal tumor Lumbar disc disease Back pain Migraine Hypertension Diabetes Surgical History History of hysterectomy for benign disease Hx of section Hx of cholecystectomy Family History Mother , age 67 Cancer Breast cancer Leukemia Father , age 87 Cancer Lung Other Unknown family medical history Social History Smoking Status: Never smoker alcohol intake: never current occupational status: other Travel in the last 8 weeks: None Have you lived/traveled outside [place] in past 30 days?: No Contact w/someone who lives/traveled outside US past 30 days?: No Exposure to someone with infectious disease in past 14 days?: No Do you have a fever (greater than 100.4 F or 38 C)?: No Have you tested positive for COVID-19: No Exposed to someone with COVID-19 in past 14 days?: No Do you have a sore throat?: No Do you have a cough?: No Do you have any weakness?: No Do you have any diarrhea?: No Are you experiencing any unusual bleeding?: No Do you have any muscle aches/pain?: Yes Do you have any abdominal pain?: No Are you experiencing loss of taste or smell?: No Other Medical History Have you received the Flu Vaccine for this season: No Have you received the Pneumonia Vaccine: No <KARLI Foster - Last Filed: 11/12/24 19:29> ROS Obtained: Yes All systems reviewed & no additional complaints except as documented Physical Exam <KARLI Foster - Last Filed: 11/12/24 19:29> General General appearance: alert and in no apparent distress Head Head exam: atraumatic and normocephalic Eye Eye exam: Present PERRL and EOMI ENT ENT exam: Present mucous membranes moist Neck Neck exam: Present normal inspection Chest Chest inspection: Present normal inspection and symmetric chest wall rise Respiratory Respiratory exam: Present normal lung sounds bilaterally; Absent respiratory distress Cardiovascular Cardiovascular exam: Present regular rate and normal rhythm Abdominal Exam Abdominal exam: Present soft; Absent tenderness Abdominal tenderness: Present RLQ and mild Extremities Exam Extremities exam: Present normal inspection Back Exam Back exam: Present CVA tenderness (R) and paraspinal tenderness; Absent straight leg raise (R) or straight leg raise (L) Neurological Exam Neurological exam: Present alert, oriented X3 and other (Is 5 out of 5 strength in bilateral lower and upper extremities, negative straight leg test bilaterally, no gross sensation deficit) Psychiatric Psychiatric exam: Present normal affect Skin Skin exam: Present warm and dry Medical Decision Making <KARLI Foster - Last Filed: 11/12/24 19:29> Medical Records Medical records reviewed: Yes I reviewed the patient's medical records. Screening: Per USPSTF and CDC recommendations, given the prevalence of disease in our region, it is our hospital?s policy to screen for HIV and viral Hepatitis for all patients aged 18 and over and those with ongoing risk factors. Mathieu Inquiry Pt receiving controlled substance: No Mathieu was queried for this patient: No Vital Signs: 11/12/24 14:55 11/12/24 15:52 11/12/24 18:48 Temperature 98.1 F Temperature Source Oral Pulse Rate 63 58 L Pulse Rate [Left Radial] 63 Respiratory Rate 17 Blood Pressure 149/88 H 181/90 H Blood Pressure [Right Arm] 149/88 H Blood Pressure Mean [Right Arm] 108 Blood Pressure Source [Right Arm] Automatic Cuff Blood Pressure Position [Right Arm] Sitting 02 Sat by Pulse Oximetry 98 99 99 Oxygen Delivery Method Room Air Room Air Room Air 11/12/24 19:30 Temperature 98.2 F Temperature Source Oral Pulse Rate 57 L Pulse Rate [Left Radial] Respiratory Rate 20 Blood Pressure 198/83 H Blood Pressure [Right Arm] Blood Pressure Mean [Right Arm] Blood Pressure Source [Right Arm] Blood Pressure Position [Right Arm] 02 Sat by Pulse Oximetry Oxygen Delivery Method Room Air Lab Data Lab results reviewed: Yes I reviewed the patient's lab results. Lab Results 11/12/24 14:13: Urine Color Dark yellow, Urine Appearance Clear, Urine pH 7.0, Ur Specific [place] 1.020, Urine Protein Negative, Urine Glucose (UA) 2+, Urine Ketones Negative, Urine Blood Negative, Urine Nitrate Negative, Urine Bilirubin Negative, Urine Urobilinogen 1.0, Ur Leukocyte Esterase Negative, Urine RBC None, Urine WBC None, Ur Squamous Epith Cells 3-5, Urine Bacteria None 11/12/24 14:40: WBC 6.2, RBC 4.93, Hgb 13.8, Hct 41.0, MCV 83.2, MCH 28.0, MCHC 33.7, RDW 12.9, Plt Count 174, MPV 11.3 H, Neut % (Auto) 60.7, Lymph % (Auto) 26.8, Cottle % (Auto) 8.6, Eos % (Auto) 3.1, Baso % (Auto) 0.5, Neut # (Auto) 3.8, Lymph # (Auto) 1.7, Cottle # (Auto) 0.5, Eos # (Auto) 0.2, Baso # (Auto) 0.0, S odium 134 L, Potassium 4.1, Chloride 100, Carbon Dioxide 28, Anion Gap 10.1, BUN 10, Creatinine 0.60, Estimated GFR 101, Est GFR ( Amer) 122, Glucose 295 H, Calcium 9.1, Total Bilirubin 1.0, AST 35, ALT 32, Alkaline Phosphatase 115, Total Protein 7.1, Albumin 3.7, Globulin 3.4 H, Albumin/Globulin Ratio 1.1, Lipase 82 11/12/24 14:40 11/12/24 14:40 Orders (Tests/Meds): ED MEDICATIONS Discontinued Medications Generic Name Dose Route Start Last Admin Trade Name Freq PRN Reason Stop Dose Admin Hydromorphone HCl 0.5 mg 11/12/24 17:22 11/12/24 17:25 Hydromorphone 2mg/Ml Syringe IV 11/12/24 17:23 0.5 mg ONCE ONE Administration Iopamidol 75 ml 11/12/24 16:18 11/12/24 16:19 Iopamidol-370 (76%);100ml Bottle IV 11/12/24 16:19 75 ml ONCE ONE Administration Ketorolac Tromethamine 15 mg 11/12/24 14:29 11/12/24 14:49 Ketorolac 30mg/Ml Vial IV 11/12/24 14:30 15 mg ONCE ONE Administration Ondansetron HCl 4 mg 11/12/24 14:29 11/12/24 14:49 Ondansetron 4mg/2ml Vial IV 11/12/24 14:30 4 mg ONCE ONE Administration Ondansetron HCl 4 mg 11/12/24 18:43 11/12/24 18:45 Ondansetron 4mg/2ml Vial IV 11/12/24 18:44 4 mg ONCE ONE Administration Promethazine HCl 25 mg 11/12/24 19:15 11/12/24 19:21 Promethazine Hcl 25mg/Ml 1ml Vial IV 11/12/24 19:16 Not Given ONCE ONE Promethazine HCl 12.5 mg 11/12/24 19:15 11/12/24 19:21 Promethazine Hcl 25mg/Ml 1ml Vial IV 11/12/24 19:16 12.5 mg ONCE ONE Administration Sodium Chloride 10 ml 11/12/24 16:18 11/12/24 16:19 Sodium Chloride 0.9% 10ml Syr (Rad Only) IV 11/12/24 16:19 10 ml ONCE ONE Administration Sodium Chloride 25 ml 11/12/24 19:15 11/12/24 19:22 Sodium Chloride 0.9% 25ml Bag IV 11/12/24 19:16 25 ml ONCE ONE Administration ORDERS Category Date Time Status CT abdomen pelvis w con Stat Cat Scan 11/12/24 14:[address] lumbar spine wo con Stat Cat Scan 11/12/24 14:29 Completed XR chest portable Stat Exams 11/12/24 14:28 Completed Complete Blood Count Auto Diff Stat Lab 11/12/24 14:40 Completed Comprehensive Metabolic Panel Stat Lab 11/12/24 14:40 Completed Lipase Stat Lab 11/12/24 14:40 Completed Urinalysis and Microscopic Stat Lab 11/12/24 14:13 Completed Medical Decision Narrative: 64-year-old female presents to the emergency department with right-sided flank pain and lower back pain, nausea and vomiting differential diagnosis include not limited to degenerative disc disease lumbar spine, herniated nucleus pulposus, acute lumbar sacral strain, acute UTI, acute pyelonephritis, nephrolithiasis, ureterolithiasis, bowel obstruction, gastritis, diverticulitis, bowel obstruction. Discussed patient case with attending physician Dr. Whittaker Will obtain basic laboratory studies, lipase level, urinalysis, chest x-ray, CT abdomen pelvis with contrast, CT lumbar spine without contrast, will give 15 mg IV Toradol and 4 mg IV Zofran for pain and nausea. CBC unremarkable. Hyperglycemia 295 is noted on patient's CMP, lipase in normal limits. Urinalysis unremarkable. Patient still complaining of pain, 0.5 mg IV hydromorphone will be given per attending physician. The patient's chest x-ray along the corresponding radiologic report, no acute cardiopulmonary process. Patient complaining of some nausea once again, thus will give addtional dose of 4mg IV Zofran Reviewed the patient's CT abdomen pelvis with contrast along the corresponding radiologic report, diverticulosis without CT evidence to suggest diverticulitis, no acute abnormalities are identified. Patient still having some quite significant nausea and dry heaves, could be side effect of narcotic administration/medication, will give 12.5 mg IV Phenergan for nausea. Reviewed the patient's CT lumbar spine without contrast along the corresponding radiologic report, no evidence of acute fracture, moderate degenerative disc space loss identified L3-L4 L4-L5 L5-S1 probable severe spinal stenosis at the level of L2-L3 with the presence of a 6 mm AP dimension calcified disc bulge, severe left facet arthropathy at L4-L5 resulting in severe left neuroforaminal stenosis, probable moderate spinal stenosis at L4-L5, severe left and moderate right neuroforaminal stenosis at L5-S1 due to moderate bilateral facet arthropathy. Results with the patient pain at the bedside. Patient's nausea is improving after Phenergan, could be side effect of medication. Patient does have [place] as needed at home, recommend judicious use of this, patient will utilize ibuprofen Tylenol, patient's pain is most likely lumbar radiculopathy/degenerative disc disease of the lumbar spine related. Due to the patient's CT findings, she has follow-up planned with her PCP I advised her to keep this appointment, recommend MRI physical therapy and pain management which will give her the number for. Patient will return emerged part any worsening signs or symptoms, no red flag signs or symptoms, to be concerning for cauda equina syndrome at this time, no urinary bladder or bowel dysfunction, patient is about a 5 strength of bilateral lower and upper extremities no gross sensation deficit. Patient voiced understand agree with the current treatment plan/discharge plan. Will prescribe the patient p.o. Zofran as needed to use at home for nausea as well as methocarbamol 750 mg p.o. <Marisol Menendez, DO - Last Filed: 11/12/24 16:17> Vital Signs: 11/12/24 14:55 11/12/24 15:52 11/12/24 18:48 Temperature 98.1 F Temperature Source Oral Pulse Rate 63 58 L Pulse Rate [Left Radial] 63 Respiratory Rate 17 Blood Pressure 149/88 H 181/90 H Blood Pressure [Right Arm] 149/88 H Blood Pressure Mean [Right Arm] 108 Blood Pressure Source [Right Arm] Automatic Cuff Blood Pressure Position [Right Arm] Sitting 02 Sat by Pulse Oximetry 98 99 99 Oxygen Delivery Method Room Air Room Air Room Air 11/12/24 19:30 Temperature 98.2 F Temperature Source Oral Pulse Rate 57 L Pulse Rate [Left Radial] Respiratory Rate 20 Blood Pressure 198/83 H Blood Pressure [Right Arm] Blood Pressure Mean [Right Arm] Blood Pressure Source [Right Arm] Blood Pressure Position [Right Arm] 02 Sat by Pulse Oximetry Oxygen Delivery Method Room Air Lab Data Lab Results 11/12/24 14:13: Urine Color Dark yellow, Urine Appearance Clear, Urine pH 7.0, Ur Specific [place] 1.020, Urine Protein Negative, Urine Glucose (UA) 2+, Urine Ketones Negative, Urine Blood Negative, Urine Nitrate Negative, Urine Bilirubin Negative, Urine Urobilinogen 1.0, Ur Leukocyte Esterase Negative, Urine RBC None, Urine WBC None, Ur Squamous Epith Cells 3-5, Urine Bacteria None 11/12/24 14:40: WBC 6.2, RBC 4.93, Hgb 13.8, Hct 41.0, MCV 83.2, MCH 28.0, MCHC 33.7, RDW 12.9, Plt Count 174, MPV 11.3 H, Neut % (Auto) 60.7, Lymph % (Auto) 26.8, Cottle % (Auto) 8.6, Eos % (Auto) 3.1, Baso % (Auto) 0.5, Neut # (Auto) 3.8, Lymph # (Auto) 1.7, Cottle # (Auto) 0.5, Eos # (Auto) 0.2, Baso # (Auto) 0.0, S odium 134 L, Potassium 4.1, Chloride 100, Carbon Dioxide 28, Anion Gap 10.1, BUN 10, Creatinine 0.60, Estimated GFR 101, Est GFR ( Amer) 122, Glucose 295 H, Calcium 9.1, Total Bilirubin 1.0, AST 35, ALT 32, Alkaline Phosphatase 115, Total Protein 7.1, Albumin 3.7, Globulin 3.4 H, Albumin/Globulin Ratio 1.1, Lipase 82 Orders (Tests/Meds): ED MEDICATIONS Discontinued Medications Generic Name Dose Route Start Last Admin Trade Name Freq PRN Reason Stop Dose Admin Hydromorphone HCl 0.5 mg 11/12/24 17:22 11/12/24 17:25 Hydromorphone 2mg/Ml Syringe IV 11/12/24 17:23 0.5 mg ONCE ONE Administration Iopamidol 75 ml 11/12/24 16:18 11/12/24 16:19 Iopamidol-370 (76%);100ml Bottle IV 11/12/24 16:19 75 ml ONCE ONE Administration Ketorolac Tromethamine 15 mg 11/12/24 14:29 11/12/24 14:49 Ketorolac 30mg/Ml Vial IV 11/12/24 14:30 15 mg ONCE ONE Administration Ondansetron HCl 4 mg 11/12/24 14:29 11/12/24 14:49 Ondansetron 4mg/2ml Vial IV 11/12/24 14:30 4 mg ONCE ONE Administration Ondansetron HCl 4 mg 11/12/24 18:43 11/12/24 18:45 Ondansetron 4mg/2ml Vial IV 11/12/24 18:44 4 mg ONCE ONE Administration Promethazine HCl 25 mg 11/12/24 19:15 11/12/24 19:21 Promethazine Hcl 25mg/Ml 1ml Vial IV 11/12/24 19:16 Not Given ONCE ONE Promethazine HCl 12.5 mg 11/12/24 19:15 11/12/24 19:21 Promethazine Hcl 25mg/Ml 1ml Vial IV 11/12/24 19:16 12.5 mg ONCE ONE Administration Sodium Chloride 10 ml 11/12/24 16:18 11/12/24 16:19 Sodium Chloride 0.9% 10ml Syr (Rad Only) IV 11/12/24 16:19 10 ml ONCE ONE Administration Sodium Chloride 25 ml 11/12/24 19:15 11/12/24 19:22 Sodium Chloride 0.9% 25ml Bag IV 11/12/24 19:16 25 ml ONCE ONE Administration ORDERS Category Date Time Status CT abdomen pelvis w con Stat Cat Scan 11/12/24 14:[address] lumbar spine wo con Stat Cat Scan 11/12/24 14:29 Completed XR chest portable Stat Exams 11/12/24 14:28 Completed Complete Blood Count Auto Diff Stat Lab 11/12/24 14:40 Completed Comprehensive Metabolic Panel Stat Lab 11/12/24 14:40 Completed Lipase Stat Lab 11/12/24 14:40 Completed Urinalysis and Microscopic Stat Lab 11/12/24 14:13 Completed <Enio Whittaker MD - Last Filed: 11/12/24 21:37> Vital Signs: 11/12/24 14:55 11/12/24 15:52 11/12/24 18:48 Temperature 98.1 F Temperature Source Oral Pulse Rate 63 58 L Pulse Rate [Left Radial] 63 Respiratory Rate 17 Blood Pressure 149/88 H 181/90 H Blood Pressure [Right Arm] 149/88 H Blood Pressure Mean [Right Arm] 108 Blood Pressure Source [Right Arm] Automatic Cuff Blood Pressure Position [Right Arm] Sitting 02 Sat by Pulse Oximetry 98 99 99 Oxygen Delivery Method Room Air Room Air Room Air 11/12/24 19:30 Temperature 98.2 F Temperature Source Oral Pulse Rate 57 L Pulse Rate [Left Radial] Respiratory Rate 20 Blood Pressure 198/83 H Blood Pressure [Right Arm] Blood Pressure Mean [Right Arm] Blood Pressure Source [Right Arm] Blood Pressure Position [Right Arm] 02 Sat by Pulse Oximetry Oxygen Delivery Method Room Air Lab Data Lab Results 11/12/24 14:13: Urine Color Dark yellow, Urine Appearance Clear, Urine pH 7.0, Ur Specific [place] 1.020, Urine Protein Negative, Urine Glucose (UA) 2+, Urine Ketones Negative, Urine Blood Negative, Urine Nitrate Negative, Urine Bilirubin Negative, Urine Urobilinogen 1.0, Ur Leukocyte Esterase Negative, Urine RBC None, Urine WBC None, Ur Squamous Epith Cells 3-5, Urine Bacteria None 11/12/24 14:40: WBC 6.2, RBC 4.93, Hgb 13.8, Hct 41.0, MCV 83.2, MCH 28.0, MCHC 33.7, RDW 12.9, Plt Count 174, MPV 11.3 H, Neut % (Auto) 60.7, Lymph % (Auto) 26.8, Cottle % (Auto) 8.6, Eos % (Auto) 3.1, Baso % (Auto) 0.5, Neut # (Auto) 3.8, Lymph # (Auto) 1.7, Cottle # (Auto) 0.5, Eos # (Auto) 0.2, Baso # (Auto) 0.0, S odium 134 L, Potassium 4.1, Chloride 100, Carbon Dioxide 28, Anion Gap 10.1, BUN 10, Creatinine 0.60, Estimated GFR 101, Est GFR ( Amer) 122, Glucose 295 H, Calcium 9.1, Total Bilirubin 1.0, AST 35, ALT 32, Alkaline Phosphatase 115, Total Protein 7.1, Albumin 3.7, Globulin 3.4 H, Albumin/Globulin Ratio 1.1, Lipase 82 Orders (Tests/Meds): ED MEDICATIONS Discontinued Medications Generic Name Dose Route Start Last Admin Trade Name Selvin PRN Reason Stop Dose Admin Hydromorphone HCl 0.5 mg 11/12/24 17:22 11/12/24 17:25 Hydromorphone 2mg/Ml Syringe IV 11/12/24 17:23 0.5 mg ONCE ONE Administration Iopamidol 75 ml 11/12/24 16:18 11/12/24 16:19 Iopamidol-370 (76%);100ml Bottle IV 11/12/24 16:19 75 ml ONCE ONE Administration Ketorolac Tromethamine 15 mg 11/12/24 14:29 11/12/24 14:49 Ketorolac 30mg/Ml Vial IV 11/12/24 14:30 15 mg ONCE ONE Administration Ondansetron HCl 4 mg 11/12/24 14:29 11/12/24 14:49 Ondansetron 4mg/2ml Vial IV 11/12/24 14:30 4 mg ONCE ONE Administration Ondansetron HCl 4 mg 11/12/24 18:43 11/12/24 18:45 Ondansetron 4mg/2ml Vial IV 11/12/24 18:44 4 mg ONCE ONE Administration Promethazine HCl 25 mg 11/12/24 19:15 11/12/24 19:21 Promethazine Hcl 25mg/Ml 1ml Vial IV 11/12/24 19:16 Not Given ONCE ONE Promethazine HCl 12.5 mg 11/12/24 19:15 11/12/24 19:21 Promethazine Hcl 25mg/Ml 1ml Vial IV 11/12/24 19:16 12.5 mg ONCE ONE Administration Sodium Chloride 10 ml 11/12/24 16:18 11/12/24 16:19 Sodium Chloride 0.9% 10ml Syr (Rad Only) IV 11/12/24 16:19 10 ml ONCE ONE Administration Sodium Chloride 25 ml 11/12/24 19:15 11/12/24 19:22 Sodium Chloride 0.9% 25ml Bag IV 11/12/24 19:16 25 ml ONCE ONE Administration ORDERS Category Date Time Status CT abdomen pelvis w con Stat Cat Scan 11/12/24 14:[address] lumbar spine wo con Stat Cat Scan 11/12/24 14:29 Completed XR chest portable Stat Exams 11/12/24 14:28 Completed Complete Blood Count Auto Diff Stat Lab 11/12/24 14:40 Completed Comprehensive Metabolic Panel Stat Lab 11/12/24 14:40 Completed Lipase Stat Lab 11/12/24 14:40 Completed Urinalysis and Microscopic Stat Lab 11/12/24 14:13 Completed Medical Decision Narrative: 64-year-old female presents to the emergency department with right-sided flank pain and lower back pain, nausea and vomiting differential diagnosis include not limited to degenerative disc disease lumbar spine, herniated nucleus pulposus, acute lumbar sacral strain, acute UTI, acute pyelonephritis, nephrolithiasis, ureterolithiasis, bowel obstruction, gastritis, diverticulitis, bowel obstruction. Discussed patient case with attending physician Dr. Whittaker Will obtain basic laboratory studies, lipase level, urinalysis, chest x-ray, CT abdomen pelvis with contrast, CT lumbar spine without contrast, will give 15 mg IV Toradol and 4 mg IV Zofran for pain and nausea. CBC unremarkable. Hyperglycemia 295 is noted on patient's CMP, lipase in normal limits. Urinalysis unremarkable. Patient still complaining of pain, 0.5 mg IV hydromorphone will be given per attending physician. The patient's chest x-ray along the corresponding radiologic report, no acute cardiopulmonary process. Patient complaining of some nausea once again, thus will give addtional dose of 4mg IV Zofran Reviewed the patient's CT abdomen pelvis with contrast along the corresponding radiologic report, diverticulosis without CT evidence to suggest diverticulitis, no acute abnormalities are identified. Patient still having some quite significant nausea and dry heaves, could be side effect of narcotic administration/medication, will give 12.5 mg IV Phenergan for nausea. Reviewed the patient's CT lumbar spine without contrast along the corresponding radiologic report, no evidence of acute fracture, moderate degenerative disc space loss identified L3-L4 L4-L5 L5-S1 probable severe spinal stenosis at the level of L2-L3 with the presence of a 6 mm AP dimension calcified disc bulge, severe left facet arthropathy at L4-L5 resulting in severe left neuroforaminal stenosis, probable moderate spinal stenosis at L4-L5, severe left and moderate right neuroforaminal stenosis at L5-S1 due to moderate bilateral facet arthropathy. Results with the patient pain at the bedside. Patient's nausea is improving after Phenergan, could be side effect of medication. Patient does have [place] as needed at home, recommend judicious use of this, patient will utilize ibuprofen Tylenol, patient's pain is most likely lumbar radiculopathy/degenerative disc disease of the lumbar spine related. Due to the patient's CT findings, she has follow-up planned with her PCP I advised her to keep this appointment, recommend MRI physical therapy and pain management which will give her the number for. Patient will return emerged part any worsening signs or symptoms, no red flag signs or symptoms, to be concerning for cauda equina syndrome at this time, no urinary bladder or bowel dysfunction, patient is about a 5 strength of bilateral lower and upper extremities no gross sensation deficit. Patient voiced understand agree with the current treatment plan/discharge plan. Will prescribe the patient p.o. Zofran as needed to use at home for nausea as well as methocarbamol 750 mg p.o. I was consulted by the DEJAH, and we discussed the complexity of the problems being addressed. I approved the treatment and management plan for this patient's care in the Emergency Department, thus performing a substantive portion of the medical decision making. Enio Whittaker MD Critical Care <Marisol Menendez, DO - Last Filed: 11/12/24 16:17> Critical Care Time Critical Care Time: No
[2024-11-12] MEDS: KETOROLAC 30MG/ML VIAL 15 MG IV (14:49)
[2024-11-12] MEDS: ONDANSETRON 4MG/2ML VIAL 4 MG IV ×2 (14:49→18:45)
[2024-11-12 14:55] VITALS: BP 149/88; PULSE 63; RESP 17; TEMP 36.7; O2SAT 98; BMI 40.1
[2024-11-12 15:01] LABS: Microscopic, Urine URINE MICROSCOPIC (MICROSCOPIC)
--- NOTE | 2024-11-12 15:01 | PC.NURSE ---
PT DAUGHTER AT BEDSIDE
[2024-11-12 15:05] LABS: Basophils % 0.5 % (0.1-2.0); Eosinophils # 0.2 K/mm3 (0.0-0.4); Eosinophils % 3.1 % (0.1-12.0); Hemoglobin 13.8 g/dL (12.2-16.2); Lymphocytes # 1.7 K/mm3 (0.7-4.5); Lymphocytes % 26.8 % (10-50); Mean Corpuscular HGB Conc 33.7 g/dL (31.8-35.4); Mean Corpuscular Volume 83.2 fl (81-99); Mean Platelet Volume 11.3 fl (7.4-10.4); Monocytes # 0.5 K/mm3 (0.1-1.0); Monocytes % 8.6 % (1.7-9.3); Neutrophils # 3.8 K/mm3 (1.8-7.8); Neutrophils % 60.7 % (37.0-80.0); Platelet Count 174 K/mm3 (142-424); Red Blood Count 4.93 M/mm3 (4.20-5.40); Red Cell Distribution Width 12.9 % (11.5-17.5); White Blood Count 6.2 K/mm3 (4.8-10.8)
[2024-11-12 15:06] LABS: Alanine Aminotransferase 32 U/L (12-78); Albumin Level 3.7 g/dl (3.5-5.0); Albumin/Globulin Ratio 1.1 (1.1-1.8); Alkaline Phosphatase 115 U/L (38-126); Anion Gap 10.1 mEq/L (5-15); Aspartate Amino Transferase 35 U/L (14-36); Blood Urea Nitrogen 10 mg/dl (7-17); Calcium 9.1 mg/dl (8.4-10.2); Carbon Dioxide 28 mmol/L (22.0-30.0); Chloride 100 mmol/L (98-107); Estimated Glomerular Filt Rate 101 ml/min (>60); GFR (African American) 122 ML/MIN (>60); Globulin 3.4 g/dL (1.3-3.2); Glucose 295 mg/dl (74-100); Lipase 82 U/L (23-300); Potassium 4.1 mmoL/L (3.5-5.1); Sodium 134 mmol/L (136-145); Total Protein,Serum 7.1 g/dl (6.3-8.2)
[2024-11-12 15:29] LABS: Appearance,Urine CLEAR (Clear); Bilirubin,Urine Negative (Negative); Blood, Urine Negative (Negative); Glucose,Urine (UA) 2+ (Negative); Ketones,Urine Negative (Negative); Leukocyte Esterase,Urine Negative (Negative); Nitrate,Urine Negative (Negative); Protein,Urine Negative (Negative)
[2024-11-12 15:52] VITALS: BP 149/88; PULSE 63; O2SAT 99
[2024-11-12 15:57] LABS: Color,Urine Dark Yellow (Yellow)
[2024-11-12] MEDS: IOPAMIDOL-370 (76%);100ML BOTTLE 75 ML IV (16:19)
[2024-11-12] MEDS: SODIUM CHLORIDE 0.9% 10ML SYR (RAD ONLY) 10 ML IV (16:19)
[2024-11-12] MEDS: HYDROMORPHONE 2MG/ML SYRINGE 0.5 MG IV (17:25)
--- NOTE | 2024-11-12 17:50 | PC.NURSE ---
PT GIVEN A WARM BLANKET. NO COMPLAINTS AT THIS TIME
[2024-11-12 18:48] VITALS: BP 181/90; PULSE 58; O2SAT 99
--- NOTE | 2024-11-12 18:50 | PC.NURSE ---
ROUNDED ON PT. SHE REPORTED THE PAIN MEDICINE MADE HER NAUSEOUS AND GAVE HER A HEADACHE. THIS NURSE GAVE HER A COLD WASH CLOTH AND PRN ZOFRAN PER THE MD
[2024-11-12] MEDS: PROMETHAZINE HCL 25MG/ML 1ML VIAL 12.5 MG IV (19:21)
[2024-11-12] MEDS: SODIUM CHLORIDE 0.9% 25ML BAG 25 ML IV (19:22)
[2024-11-12 19:30] VITALS: BP 198/83; PULSE 57; RESP 20; TEMP 36.8; O2SAT 94
== END 2024-11-12 19:40 | disposition home or self-care (01) ==
PROVIDERS: Physician Assistant; Emergency Provider Emergency Medicine; PCP Family Medicine
DX: M54.16 Radiculopathy, lumbar region (principal); M51.369 Other intervertebral disc degeneration, lumbar region without mention of lumbar back pain or lower extremity pain; R10.9 Unspecified abdominal pain; M54.50 Low back pain, unspecified; R11.2 Nausea with vomiting, unspecified; R50.9 Fever, unspecified
CPT/HCPCS: 71045; 72131; 74177; 80053; 81001; 83690; 85025; 96374; 96375; 96376; 99285; J1171; J1885; J2405; J2550; Q9967

== ENCOUNTER 2024-11-21 16:07 | Outpatient (CLI) | payer MEDICAID, SELFPAY | END 2024-11-21 23:59 | disposition home or self-care (01) | LOC: RAD 16:08 | PROVIDERS: PCP Family Medicine; Visit Provider Family Medicine | DX: M51.16 Intervertebral disc disorders with radiculopathy, lumbar region (principal); M46.1 Sacroiliitis, not elsewhere classified ==

== ENCOUNTER 2024-11-26 14:10 | Outpatient (RCR) | payer MEDICAID, SELFPAY ==
--- NOTE | 2024-11-26 17:09 | HMH.PTOPEV ---
PT Outpatient Evaluation Rehab PT Outpatient Evaluation Start: 11/26/24 14:57 Freq: Status: Active Protocol: Document 11/26/24 14:58 LULAVALENCIAANTONIO (Rec: 11/26/24 17:09 OCTAVIO [id number]) E-signed By Nahum Mcarthur, PT Outpatient Therapy Subjective History Subjective History Pt is a 64 yof who is referred to [facility] outpatient PT with complaints of LBP that radiates down her post. R leg. Pt reports that she has dealing with LBP for 30 years. However, she reports that in the past 3 months, it has significantly worsened. Pt reports that she had a CT scan which showed multiple bulging discs. Pt reports that she had gone to the ER because she thought she had kidney stones. However, pt was told that the culprit of her pain was her bulging discs. Pt reports that she is getting an Open MRI on Tuesday of this week. Occupation: Retired PMH: T2DM, HTN New diagnosis of cancer in past 12 No months? Chief Complaint Pain,Stiff,Weakness Symptom Type Ache,Sharp Symptoms Relieved By Nothing Symptoms Aggravated By Sitting,Standing,Bending/ Stooping,Walking,Lifting Prior Functional Limitations None Current Functional Limitations Lifting,Housework,Standing, Sitting,Squatting,Stairs, Balance Symptom Description Constant but Variable Level of pain today (0-10) 4 Pain scale - at its best (0-10) 2 Pain scale - at its worst (0-10) 10 Lumbopelvic Eval Posture Thoracic Spine Posture Standing Position Neutral Lumbar Spine Posture Standing Position Neutral Gait Observation General Gait Pattern Observation Antalgic Gait Palapation tenderness right lumbar spinal tenderness Yes: 4/4 TTP to L2-L5 paraspinal tenderness Yes: 3/4 TTP to L2-L5 R Accessory Movement L2 bilateral L3 bilateral L4 bilateral L5 bilateral Range of Motion Lumbar Spine Active Flexion Range of 50% Motion (degrees) Lumbar Spine Active Extension Range of 50% Motion (degrees) Left Lumbar Spine Lateral Flexion Active 50% Range of Motion (degrees) Right Lumbar Spine Lateral Flexion 50% Active Range of Motion (degrees) Lumbar Spine ROM Limitations Soft Tissue Tightness,Pain Manual Muscle Test Bilateral Knee Extension Strength Grade 3+ Fair+ Knee Flexion Strength Grade 4- Good- Hip Flexion Strength Grade 3 Fair Hip Abduction Strength Grade 3 Fair Hip Adduction Strength Grade 3 Fair Hip Extension Strength Grade 3 Fair DTR Rt Patellar 2+ Lt Patellar 2+ Rt Gastroc/Soleus 2+ Lt Gastroc/Soleus 2+ Altered Sensation Bilateral Comment Intact to Light touch globally Special Tests Lumbar Spine Screen Positive Hip Scouring (Quadrant) Test Negative Left,Negative Right Hip Dex (JAZIEL) Test Negative Left,Negative Right Hip April Test Positive Right Sciatic Nerve Tension Test Positive Right Reverse Sciatic Nerve Tension Test Positive Right Sacroiliac Joint Compression Test Negative Left,Negative Right Sacroiliac Joint Distraction Test Negative Left,Negative Right Oswestry Index Section 1 Pain Intensity The pain comes and goes and is severe Section 2 Personal Care (Washing,Dresing) unable to do some washing and dressing without help Section 3 Lifting I can only lift very light weights at most Section 4 Walking I cannot walk more than 1/2 mile without increasing pain Section 5 Sitting Pain prevents me from sitting for more than 1/2 hour Section 6 Standing I cannot stand more than 10 minutes without increasing pain Section 7 Sleeping Because of pain, my normal nights sleep is less than 2 hours sleep Section 8 Social Life Pain has restricted my social life to my home Section 9 Traveling Pain restricts me to short necessary journeys under 30 minutes Section 10 Changing Degreee of Pain My pain is gradually getting worse Score and Risk Level Oswestry Sc 39 Oswestry Risk Level Completely Disabled Outpatient Therapy Assessment Impairments Problems/Impairmments Palpation Tenderness,Impaired Range of Motion,Impaired Strength,Impaired Walking, Impaired Standing,Impaired Sitting,Impaired Household Care,Impaired Stair Climbing, Subjective C/O Pain Prognosis Rehab Potential Good Clinical Impression Consistent with Diagnosis Yes Consistent with LBP with radiating pain Short Term Goals Number of Weeks 4 Decreased Palpation Tenderness Yes: 2-3/4 to TTP Assessment Above Increase Range of Motion Yes: 50-75% pain-free Lumbar ROM Increase Strength Yes: 3+/5 to B hips and knees Increase Ability to Walk Yes: 1/2 mile without increasing pain Increase Ability to Stand Yes: 15 minutes without increasing pain Improve Oswestry Score Yes: Severe disability Decrease Subjective C/O Pain Yes: 12/15 with above assessment Patient to be Ind w/ HEP Yes Nursing Home Goals Number of Weeks 8 Decreased Palpation Tenderness Yes: 0-1/4 to TTP Assessment Above Increase Range of Motion Yes: 75-100% Pain free Lumbar AROM Increase Strength Yes: 4/5 to B hips and knees Improve Gait Pattern without Assistive Yes: Normalized Gait pattern Device Increase Ability to Walk Yes: 1 mile without increasing pain Increase Ability to Stand Yes: 30 minutes without increasing pain Restore Ability to Lift Objects to Waist Yes: 15# proper mechanics and Level without increasing pain Improve Ability For Household Care Yes Improve Oswestry Score Yes: Mod disability Decrease Subjective C/O Pain Yes: 2-310 with above assessment Patient to be Ind w/ Advanced HEP Yes Outpatient Therapy Plan of Care Treatment Plan May Include Therapeutic Exercise Including Home Yes Exercise Program Manual Therapy Techniques Yes Neuromuscular Re-education Yes Therapeutic Activities to Return to Yes Previous Functional/Work Level Gait Training Yes ADL/Self Care Education Yes Mechanical Traction Yes Dry Needling Yes Thermal Modalities Yes Electrical Stimulation Yes Manual Lymphatic Drainage Yes Eval/Re-Eval Yes Frequency Times per week 2 Duration Number of Weeks 8 Addendums This patient is a candidate for social No or vocational rehab? Patient/Guardian verbally acknowledges Yes understanding of treatment program and consents to further treatment? Patient/Guardian verbally acknowledges Yes understanding of diagnosis, prognosis and goals for treatment? Eval Complexity PT Charges 92389 - Moderate Complexity Shoulder/Elbow Eval Shoulder Objective Measurements Elbow Objective Measurements PHYSICIAN CERTIFICATION: I certify the specified therapy services for Torri Diez are required, authorized, and reviewed every 30 days.
== END 2024-11-26 23:59 | disposition home or self-care (01) ==
LOC: PT 14:10
PROVIDERS: PCP Family Medicine; Visit Provider Family Medicine
DX: M53.3 Sacrococcygeal disorders, not elsewhere classified (principal); M54.50 Low back pain, unspecified
CPT/HCPCS: 97163

== ENCOUNTER 2024-12-13 13:00 | Outpatient (RCR) | payer MEDICAID, SELFPAY | END 2024-12-13 23:59 | disposition home or self-care (01) | LOC: PT 13:00 | PROVIDERS: PCP Family Medicine; Visit Provider Family Medicine | DX: M53.3 Sacrococcygeal disorders, not elsewhere classified (principal) | CPT/HCPCS: 97110 ==

== ENCOUNTER 2025-04-12 10:42 | Outpatient (CLI) | payer MEDICAID, SELFPAY ==
--- OUTSIDE RECORDS SUMMARY | 2023-06-17 11:39 | XMS_ITS | Encounter Summary ---
[facility] Address [address] [place] [address] Care Team Providers Care Flare Breaker Name Role Phone Justine Klein MD Primary Care Provider [phone] Reason for Visit * Diagnostic Imaging (Routine) - Closed Specialty Diagnoses / Procedures Referred By Conttrina t Referred To Contact Radiology Diagnoses Thyroid nodule Procedures US Thyroid Jorge Ellsworth MD [address] [address] Phone: tel: fax: Referral ID Status Reason Start Date Expiration Date Visits Re quested Visits Authorized [id number] Closed 06/17/2023 06/16/2024 1 1 Encounter Details Date Type Department Care Team (Late st Contact Info) Description 06/17/2023 10:39 AM EST Hospital Encounter [facility] [address] [facility] [address] [place] [id number] Social History Tobacco Use Types Packs/Day Years Used Date Smoking Tobacco: Former Cigarettes 0.5 2 1 977 - 1978 Smokeless Tobacco: Never Alcohol Use Standard Drinks/Week Comments Never 0 (1 standard drink = 0.6 oz pur e alcohol) AUDIT-C Answer Date Recorded Q1: How often do you have a drink containing alcohol? Never 12/06/2022 Q2: How many drinks containi ng alcohol do you have on a typical day when you are drinking? Patient does not drink Q3: How often do you have si x or more drinks on one occasion? Never 12/06/2022 Abuse Screen Answer Date Recorded Unsafe at Home or Work/School Not on file Feels Threatened by Someone? Not on file 04/2023 Does Anyone Keep You from Co ntacting Others or Doint Things Outside the Home? Not on file 05/16/2023 Physical Sign of Abuse Present Not on file 1 Housing Stability Answer Date Recorded Current Living Arrangements Not on file 04/2023 Potentially Unsafe Housing Conditions Not on stephanie e 05/16/2023 Family and Community Support Answer Aaron e Recorded Help with Day-to-Day Activities Not on file 05/16/2023 Lonely or Isolated Not on file 05/16/2023 Employment Answer Date Recorded Do you want help finding or keeping work or a pauly b? Not on file 05/16/2023 Disabilities Answer Date Recorded Concentrating, Remembering, or Making Decisions Difficulty Not on file 05/16/2023 Doing Errands Independently Difficulty Not on fi le 05/16/2023 Education Answer Date Recorded Help with school or training? Not on file Preferred Language Not on file 05/16/2023 Comments Unknown Sex and Gender Information Value Date Recorded Sex Assigned at Female 12/09/2022 9:48 AM EDT Legal Sex Female 12:09 PM EDT Gender Identity Female 12/09/2022 9:48 AM EDT Sexual Orientation Straight 12/09/2022 9: 48 AM EDT documented as of this encounter Plan of Treatment Not on file documented as of this encounter Procedures Procedure Name Priority Date/Time Associated Diagnosis Comments US THYROID Routine 06/17/2023 10:39 AM EST Thyroid nodule documented in this encounter Results * US Thyroid (06/17/2023 10:39 AM EST) Narrative SYSTEMGENERATED, DOCUMENTATION - 06/17/2023 10:39 AM EST Please see performing physician's note for result. us Jorge Ellsworth MD IMG US ORDERABLES Christine l Result documented in this encounter Visit Diagnoses Not on filedocumented in this encounter Care Teams Flare Breaker Relationship Specialty Start Date End Date Justine Klein MD PCP - General Internal Medicine 11/23/22 documented as of this encounter
[2025-04-12 16:09] LABS: Albumin Level 4.2 g/dl (3.5-5.0); Chloride 107 mmol/L (98-107); Potassium 4.7 mmoL/L (3.5-5.1); Sodium 136 mmol/L (136-145)
[2025-04-12 16:12] LABS: Alanine Aminotransferase 40 U/L (12-78); Albumin/Globulin Ratio 1.3 (1.1-1.8); Alkaline Phosphatase 130 U/L (38-126); Anion Gap 12.7 mEq/L (5-15); Aspartate Amino Transferase 44 U/L (14-36); Bilirubin,Total 1.3 mg/dl (0.2-1.3); Blood Urea Nitrogen 13 mg/dl (7-17); Carbon Dioxide 21 mmol/L (22.0-30.0); Creatinine,Serum 0.50 mg/dl (0.52-1.04); Estimated Glomerular Filt Rate 124 ml/min (>60); GFR (African American) 150 ML/MIN (>60); Globulin 3.2 g/dL (1.3-3.2); Total Protein,Serum 7.4 g/dl (6.3-8.2); Triglycerides 123 mg/dl (30-150)
[2025-04-12 16:13] LABS: Calcium 9.3 mg/dl (8.4-10.2); Cholesterol 171 mg/dl (140-200); Glucose 340 mg/dl (74-100); HDL Cholesterol 49 mg/dl (40-60)
--- OUTSIDE RECORDS SUMMARY | 2025-04-15 09:42 | XMS_ITS | Encounter Summary ---
Author Organization [employer] ([place], [place], [place], [place]) Address [address] [place] [address] Care Team Providers Care Director Quality Assurance Name Role Phone Justine Klein MD Primary Care Provider [phone] Encounter Details Date Type Department Care Team (Late st Contact Info) Description 07/23/2020 Transcribed Document [facility] Radiology [address] [place] [address] Karolina Shin MD [facility] Dept [place] [address] Social History Tobacco Use Types Packs/Day Years Used Date Smoking Tobacco: Never Assessed Comments Unknown Sex and Gender Information Value Date Recorded Sex Assigned at Not on file Legal Sex Female 1:29 PM CDT Gender Identity Not on file Sexual Orientation Not on file documented as of this encounter Miscellaneous Notes * Cerner Conversion Note - Karolina Shin MD - 07/23/2020 3:30 PM EST documented in this encounter Plan of Treatment Not on file documented as of this encounter Visit Diagnoses Not on filedocumented in this encounter Care Teams Director Quality Assurance Relationship Specialty Start Date End Date Justine Klein MD PCP - General General Internal Medicine 11/02/22 documented as of this encounter
--- OUTSIDE RECORDS SUMMARY | 2025-04-15 09:42 | XMS_ITS | Clinical Summary ---
Author Organization [employer] ([place], [place], [place], [place]) Address [address] [place] [address] Care Team Providers Care Health Plan Advisor Name Role Phone Unavailable Primary Care Provider Unavailabl e Allergies Active Allergy Reactions Criticality Noted Date Comments Acetaminophen Nausea Only 10/29/2022 Latex Rash Low 10/29/2022 Red Dye Nausea And Vomiting 12/06/2022 Other reaction(s): GI Intolerance Unsure which red dye #, generally stays away from all. Medications glimepiride (AMARYL) 1 MG tablet Take 1 tablet (1 mg total) by mouth every morning before breakfast. Active metoprolol succinate (TOPROL-XL) 100 MG 24 hr tablet Take 1 tablet (100 mg total) by mouth daily. Active lisinopriL (PRINIVIL,ZESTR IL) 20 MG tablet Take 1 tablet (20 mg total) by mouth nightly. 11/09/2022 Active FreeStyle Lite Strips Strp USE 1 STRIP DIRECTED TWICE A DAY 10/13/2022 Active cyclobenzaprine (FLEXERIL) 10 MG tablet Take 1 tablet (10 mg total) by mouth every night as needed. 11/11/2022 Active cloNIDine HCL (CATAPRES) 0.1 MG tablet Take by mouth. 11/18/2022 Active cinnamon bark 500 mg capsule Take 1 capsule by mouth in the morning. Active carvediloL (COREG) 25 MG tablet Take 1 tablet (25 mg total) by mouth 2 (two) times daily. 12/06/2022 Active blood pressure test kit-large Kit use 3 times per week 11/18/2022 Active alpha lipoic acid-herbal 305 150 mg Cap Take 1 capsule by mouth in the morning. Active pyrithione zinc, bulk, 48 % Liqd Take 1 tablet by mouth. Active magnesium oxide (MAG-OX) 400 mg (241.3 mg magnesium) tablet Take 1 tablet (400 mg total) by mouth daily. Active iodine strong, Lugols, (LUGOLS) 5 % Soln oral solution Take 4 drops (0.2 mLs total) by mouth. Active spironolactone (ALDACTONE) 25 MG tablet Take 1 tablet (25 mg total) by mouth daily. 12/06/2022 Active loratadine (CLARITIN) 10 mg tablet Take 1 tablet (10 mg total) by mouth daily as needed. Active lisinopriL (PRINIVIL,ZESTR IL) 40 MG tablet Take 1 tablet (40 mg total) by mouth nightly. 12/06/2022 Active amLODIPine (NORVASC) 5 MG tablet Take 1 tablet (5 mg total) by mouth daily. 01/01/2023 Active Active Problems Problem Noted Date Diagnosed Date Adenoma of left adrenal gland 01/19/2023 Encounter for general adult medical examination without abnormal findings 12/02/2022 Hypertension due to endocrine disorder Morbid obesity 12/02/2022 Social History Tobacco Use Types Packs/Day Years Used Date Smoking Tobacco: Former Cigarettes Smokeless Tobacco: Never Tobacco Cessation:Counseling Given: Not Answered Alcohol Use Standard Drinks/Week Comments Never 0 (1 standard drink = 0.6 oz pur e alcohol) Food Insecurity Answer Date Recorded Food run out past 12 months Not on file 08/08 Food did not last past 12 months Not on file 08/26/2023 Employment Answer Date Recorded Help finding and keeping a job Not on file 0 08/26/2023 Family and Community Support Answer Aaron e Recorded Help with Day to Day Activities Not on file 08/26/2023 Feeling Lonely or Isolated Not on file 08/26 Educational Attainment Answer Date Edgar rded Speak language other than Gren[place] at home Not on file 08/26/2023 Want help with school or training Not on file 08/26/2023 Substance Use Answer Date Recorded Used prescription meds for non-medical reasons N ot on file 08/26/2023 Used illegal drugs past 12 months Not on file 08/26/2023 Comments No Sex and Gender Information Value Date Recorded Sex Assigned at Not on file Legal Sex Female 1:29 PM CDT Gender Identity Not on file Sexual Orientation Not on file Last Filed Vital Signs Vital Sign Reading Time Taken Comments Blood Pressure 139/88 07/21/2023 10:00 AM EST Pulse 82 07/21/2023 10:00 AM EST Temperature 37.6 C (99.7 F) 07/21/2023 7:38 AM EST Respiratory Rate 18 07/21/2023 7:38 AM EST Oxygen Saturation 94% 07/21/2023 10:00 AM EST Inhaled Oxygen Concentration - - Weight 108.9 kg (240 lb) 07/21/2023 7:38 AM EST Height 170.2 cm (5' 7 ) 07/21/2023 7:38 AM EST Body Mass Index 37.59 07/21/2023 7:38 AM EST Plan of Treatment Health Maintenance Due Date Last Done Comments CT Colonography 1961 Colonoscopy 1961 Colorectal Cancer Screening 1961 FOBT/FIT 1961 Fit-DNA (Cologuard) 1961 Sigmoidoscopy 1961 Depression Screening (12+) 1973 HIV Screening 02/06/1976 Hepatitis C Screening 1979 DTAP/TDAP/TD VACCINES (1 - Tdap) 02/06/1980 Pap Smear 1982 Lipid Panel 2006 Pneumococcal 50+ years (1 of 1 - PCV) 2011 Shingles Vaccine (Zoster) (1 of 2) 2011 Breast Cancer Screening 11/26/2022 11/26/2020 Tobacco Cessation Counseling and Screening (12+) 01/1901/19/2023 COVID-19 VACCINE (1 - season) 2025 Influenza Vaccine (#1) 2025 Respiratory Syncytial Virus (RSV) Adult or (1 - 1-dose 75+ series) 02/06/2036 Procedures Procedure Name Priority Date/Time Associated Diagnosis Comments MM DIGITAL MAMMO SCREEN BILATERAL Routine 11/26/2020 12:00 PM EDT from Last 3 Months or Most Recently Relevant to Health Maintenance Results * MM digital mammo screen bilateral (11/26/2020 12:00 PM EDT) Anatomical Region Laterality Modality Breast Bilateral Mammography 11/26/2020 12:0 0 PM EDT Narrative 11/26/2020 6:09 PM EDT PROCEDURE: Digital screening mammogram. REASON FOR EXAM: Routine screening. FAMILY HISTORY: Unknown family history of breast cancer. COMPARISON STUDY: from [facility] FINDINGS: Craniocaudal and mediolateral oblique images of both breasts were obtained. Including exaggerated lateral bilateral cc views. The breast tissue is almost entirely fatty. There is an asymmetry in the right axilla seen on right MLO view. This is likely an enlarged lymph node. This will be further evaluated. There is no evidence of dominant mass, architectural distortion, or suspicious calcifications in the left breast. The mammogram was interpreted with the benefit of computer aided detection (CAD). FINAL IMPRESSION: ACR BI-RADS 0: Incomplete: Needs additional imaging evaluation. This report will serve as an order for the imaging studies listed below. RECOMMENDATIONS: Ultrasound of the right breast. A letter including results and recommendations was sent to the patient. Density notification was included for patients with pattern 3 or 4 breast tissue. Patient information was entered into a reminder system with a target due date for the next mammogram. At our facility, a telida marker is positioned over a visible skin lesion and a linear marker is used to indicate a scar. A triangular marker is placed on a self reported palpable finding. Procedure Note Provider, MD Randi - 11/23/2022 PROCEDURE: Digital screening mammogram. REASON FOR EXAM: Routine screening. FAMILY HISTORY: Unknown family history of breast cancer. COMPARISON STUDY: from [facility] FINDINGS: Craniocaudal and mediolateral oblique images of both breasts were obtained. Including exaggerated lateral bilateral cc views. The breast tissue is almost entirely fatty. There is an asymmetry in the right axilla seen on right MLO view. This is likely an enlarged lymph node. This will be further evaluated. There is no evidence of dominant mass, architectural distortion, or suspicious calcifications in the left breast. The mammogram was interpreted with the benefit of computer aided detection (CAD). FINAL IMPRESSION: ACR BI-RADS 0: Incomplete: Needs additional imaging evaluation. This report will serve as an order for the imaging studies listed below. RECOMMENDATIONS: Ultrasound of the right breast. A letter including results and recommendations was sent to the patient. Density notification was included for patients with pattern 3 or 4 breast tissue. Patient information was entered into a reminder system with a target due date for the next mammogram. At our facility, a telida marker is positioned over a visible skin lesion and a linear marker is used to indicate a scar. A triangular marker is placed on a self reported palpable finding. [facility] Historical Provider IMG MAMMOGRAPHY ORDERAB LES Final Result from Last 3 Months or Most Recently Relevant to Health Maintenance Insurance [facility]
--- OUTSIDE RECORDS SUMMARY | 2025-04-15 09:42 | XMS_ITS | Encounter Summary ---
Author Organization [employer] ([place], [place], [place], [place]) Address [address] [place] [address] Care Team Providers Care Desktop Operator Name Role Phone Justine Klein MD Primary Care Provider [phone] Encounter Details Date Type Department Care Team (Late st Contact Info) Description 08/10/2022 Outside Orders [facility] Scheduling [address] [place] [address] Monica Hall MD [address] [place] [address] Encounter for screening mammogram for breast cancer (Primary Dx) Social History Tobacco Use Types Packs/Day Years Used Date Smoking Tobacco: Never Assessed Comments Unknown Sex and Gender Information Value Date Recorded Sex Assigned at Not on file Legal Sex Female 1:29 PM CDT Gender Identity Not on file Sexual Orientation Not on file documented as of this encounter Plan of Treatment Not on file documented as of this encounter Visit Diagnoses Diagnosis Encounter for screening mammogram for breast cancer- Primary documented in this encounter Care Teams Desktop Operator Relationship Specialty Start Date End Date Justine Klein MD PCP - General General Internal Medicine 11/02/22 documented as of this encounter
--- OUTSIDE RECORDS SUMMARY | 2025-04-15 09:42 | XMS_ITS | Encounter Summary ---
Author Organization [employer] ([place], [place], [place], [place]) Address [address] [place] [address] Care Team Providers Care Care Transition Manager Name Role Phone Justine Klein MD Primary Care Provider [phone] Encounter Details Date Type Department Care Team (Late st Contact Info) Description 07/23/2020 Transcribed Document [facility] [place] [facility] [place] [address] ProviderRandi MD [address] [place] [address] Social History Tobacco Use Types Packs/Day Years Used Date Smoking Tobacco: Never Assessed Comments Unknown Sex and Gender Information Value Date Recorded Sex Assigned at Not on file Legal Sex Female 1:29 PM CDT Gender Identity Not on file Sexual Orientation Not on file documented as of this encounter Miscellaneous Notes * Cerner Conversion Note - Randi ProviderMD - 07/23/2020 8:54 AM BICYCLE DESIGNER [place] Suicide Severity Rating Scale (C-SSRS) Entered On: 07/23/2020 9:10 EST Performed On: 07/23/2020 9:10 EST by NERI REYES RN [place] Suicide Severity Rating Scale (C-SSRS) CSSRS Past Month Wish to be : No CSSRS Past Month Suicidal Thoughts : No CSSRS Lifetime Suicide Behavior : No Suicide Severity Rating Score : 0 Suicide Severity Rating : No Additional Care Required at this time NERI REYES RN - 07/23/2020 9:10 EST Electronically signed by Rob [facility] Conversion Director Global Development Cerner at 11/26/2022 12:19 PM CDT documented in this encounter Plan of Treatment Not on file documented as of this encounter Visit Diagnoses Not on filedocumented in this encounter Care Teams Care Transition Manager Relationship Specialty Start Date End Date Justine Klein MD PCP - General General Internal Medicine 11/02/22 documented as of this encounter
--- OUTSIDE RECORDS SUMMARY | 2025-04-15 09:42 | XMS_ITS | Encounter Summary ---
Author Organization [employer] ([place], [place], [place], [place]) Address [address] [place] [address] Care Team Providers Care Radio Station Manager Name Role Phone Justine Klein MD Primary Care Provider Encounter Details Date Type Department Care Team (Late st Contact Info) Description 07/23/2020 Transcribed Document [facility] Family Medicine [address] [place] [address] ProviderRandi MD [address] [place] [address] Social History Tobacco Use Types Packs/Day Years Used Date Smoking Tobacco: Never Assessed Comments Unknown Sex and Gender Information Value Date Recorded Sex Assigned at Not on file Legal Sex Female 1:29 PM CDT Gender Identity Not on file Sexual Orientation Not on file documented as of this encounter Miscellaneous Notes * Cerner Conversion Note - Randi ProviderMD - 07/23/2020 5:11 PM POULTRY PACKER CR Chest 1 Vw Portable Ordered: 07/23/2020 Modified Reason for Exam: Chest Pain 07/23/2020 13:13 07/23/2020 17:11 (FERMIN DUNBAR) No further action required documented in this encounter Plan of Treatment Not on file documented as of this encounter Visit Diagnoses Not on filedocumented in this encounter Care Teams Radio Station Manager Relationship Specialty Start Date End Date Justine Klein MD PCP - General General Internal Medicine 11/02/22 documented as of this encounter
--- OUTSIDE RECORDS SUMMARY | 2025-04-15 09:42 | XMS_ITS | Encounter Summary ---
Author Organization [employer] ([place], [place], [place], [place]) Address [address] [place] [address] Care Team Providers Care Assembler Insulator Name Role Phone Justine Klein MD Primary Care Provider [phone] Encounter Details Date Type Department Care Team (Late st Contact Info) Description 08/02/2019 Transcribed Document [facility] [place] Family Medicine [facility] [place] [address] ProviderRandi MD [address] [place] [id number] Social History Tobacco Use Types Packs/Day Years Used Date Smoking Tobacco: Never Assessed Comments Unknown Sex and Gender Information Value Date Recorded Sex Assigned at Not on file Legal Sex Female 1:29 PM CDT Gender Identity Not on file Sexual Orientation Not on file documented as of this encounter Miscellaneous Notes * Cerner Conversion Note - Randi Gaines MD - 08/02/2019 1:21 PM DRAWING HAND ED Assessment Entered On: 08/02/2019 17:28 EST Performed On: 08/02/2019 17:27 EST by SHEA HAYES RN ED Quick Look Assessment Level of Consciousness : Alert, Awake Affect/Behavior : Appropriate, Calm, Cooperative Orientation : Oriented x 4 Skin Temperature : Warm Skin Description : Dry SHEA HAYES RN - 08/02/2019 17:27 EST ED General-Functional Assess Information Obtained From : Patient Communication Barrier : None Primary Language : Mexican Any Spiritual/Cultural Needs or Requests : No Currently in Unsafe Situation : No SHEA HAYES RN - 08/02/2019 17:27 EST Social Habits Smoking Status : Never (less than 100 in lifetime; none in last 30 days) Smokeless Tobacco Status : Never Desires Tobacco Cessation Calc : 0 SHEA HAYES RN - 08/02/2019 17:27 EST Social History (As Of: 08/02/2019 17:28:26 EST) Home/Environment: Lives with Children. Living situation: Home/Independent. (Last Updated: 03/01/2015 13:18:42 EDT by NATHANIEL BURNS MD-EMR) Employment/School: Employed (Last Updated: 03/01/2015 13:18:53 EDT by NATHANIEL BURNS MD-EMR) Cardiovascular ASMT, ED Cardiovascular Assessment WDL : WDL with exceptions Cardiovascular Symptoms : Chest pain at rest Heart Rhythm : Regular Nail Bed Color : [place] Chest Pain : Yes SHEA HAYES RN - 08/02/2019 17:27 EST Pulses Grid Brachial Pulse, Left : 2+ normal Brachial Pulse, Right : 2+ normal Carotid Pulse, Left : 2+ normal Carotid Pulse, Right : 2+ normal Dorsalis Pedis Pulse, Left : 2+ normal Dorsalis Pedis Pulse, Right : 2+ normal Femoral Pulse, Left : 2+ normal Femoral Pulse, Right : 2+ normal Popliteal Pulse, Left : 2+ normal Popliteal Pulse, Right : 2+ normal Posterior Tibial Pulse, Left : 2+ normal Posterior Tibial Pulse, Right : 2+ normal Radial Pulse, Left : 2+ normal Radial Pulse, Right : 2+ normal SHEA HAYES RN - 08/02/2019 17:27 EST Capillary Refill, Left Hand : Less than/Equal to (</=) 2 seconds Capillary Refill, Right Hand : Less than/Equal to (</=) 2 seconds Clubbing Present : No SHEA HAYES RN - 08/02/2019 17:27 EST Electronically signed by [facility] Conversion Airset Caster Cerner at 11/26/2022 12:21 PM CDT documented in this encounter Plan of Treatment Not on file documented as of this encounter Visit Diagnoses Not on filedocumented in this encounter Care Teams Assembler Insulator Relationship Specialty Start Date End Date Justine Klein MD PCP - General General Internal Medicine 11/02/22 documented as of this encounter
--- OUTSIDE RECORDS SUMMARY | 2025-04-15 09:42 | XMS_ITS | Encounter Summary ---
Author Organization [facility] ([place], [place], [place], [place]) Address [address] [place] [address] Care Team Providers Care Tick Inspector Name Role Phone Justine Klein MD Primary Care Provider [phone] Encounter Details Date Type Department Care Team (Late st Contact Info) Description 07/23/2020 Transcribed Document [facility] [address] [place] [address] ProviderRandi MD [address] [place] [address] Social History Tobacco Use Types Packs/Day Years Used Date Smoking Tobacco: Never Assessed Comments Unknown Sex and Gender Information Value Date Recorded Sex Assigned at Not on file Legal Sex Female 1:29 PM CDT Gender Identity Not on file Sexual Orientation Not on file documented as of this encounter Miscellaneous Notes * Cerner Conversion Note - Randi Gaines MD - 07/23/2020 2:34 PM [employer] SUPER[employer] [facility] [place], [place] [id number] NUNO CHU DECEMBER :1960 Visit Time:07/23/2020 Your Visit Summary Your Care Team Primary Provider: BULL VERA MD Secondary Provider: Your Diagnosis Chest pain Chest wall pain Medical Information You may obtain a copy of your Emergency Department visit from Medical Records by calling the hospital phone number listed above and asking to be directed to the Medical Records Department. If you had special tests, such as EKG???s or X-rays, the interpretation of your tests given to you by the Emergency Department Physician is a preliminary report. Some fractures and illnesses fail to show up on preliminary tests. These will be reviewed again and we will call you if there are any new suggestions. If your symptoms continue notify your physician. After you leave, you should follow the instructions provided. What to do next Follow-Up Appointments Follow Up with Return to Emergency Department When Within As needed Comments Return if condition worsens Follow Up with Follow up with primary care provider When Within 2 to 3 days Comments Call for follow up appointment Allergies Latex acetaminophen Immunizations This Visit No Immunizations Found Medications What How Much When Instructions Next Dose naproxen (naproxen 500 mg oral tablet) 1 Tablet(s) Oral Two Times A Day Duration: 7 Day(s) Printed Prescription The home medications listed are only as accurate as the information you provided. Please continue taking all of your medications prescribed by your Primary Care Provider unless specifically told to change or discontinue the medication. Please direct any questions regarding your home medications to your Primary Care Provider. Take your medications faithfully. Do NOT skip medication. Do NOT stop taking medications without the direction of a physician. Carry a list of your medications with you at all times, and take this medication list with you to your first follow up visit. Report any side effects. Avoid herbal remedies unless discussed with your physician. As part of your treatment plan, your physician may have prescribed a limited course of a controlled substance. This medication may be given to help people with moderate or severe pain or for other medical conditions, but there are risks involved with treatment. Common side effects may include nausea, constipation, drowsiness, sweating, itching, dry mouth, and rash. More serious side effects may include cognitive and motor impairment, like problems with thinking, concentrating, alertness, and movement (e.g. slowed reflexes), and driving and operating heavy machinery can be dangerous. It is important for you to talk to your physician if you have these side effects or questions. These controlled substances can produce physical dependence and be habit-forming if taken for an extended period of time, which means that the body has gotten used to them and may experience withdrawal symptoms if they are abruptly stopped. Withdrawal symptoms can include runny nose, sweating, goose bumps, diarrhea, abdominal cramping, rapid heartbeat, difficulty sleeping, and nervousness. Please dispose of unused and medications per pharmacy guidance. Test Results Laboratory or Other Results This Visit (last charted value for your 07/23/2020 visit) Hematology 07/23/2020 9:15 AM WBC: 8.6 K/uL -- Normal range between ( 4.5 and 10.5 ) RBC: 5.71 Million/uL -- Normal range between ( 3.93 and 5.22 ) Hct: 47.7 % -- Normal range between ( 34.1 and 44.9 ) Hgb: 15.9 g/dL -- Normal range between ( 11.2 and 15.7 ) Platelet Count: 216 K/uL -- Normal range between ( 163 and 369 ) MCH: 27.8 pg -- Normal range between ( 25.6 and 32.2 ) MCHC: 33.3 Gram/dL -- Normal range between ( 32.2 and 36.5 ) MCV: 83.5 fL -- Normal range between ( 79.0 and 94.8 ) Slide Review: No Eos %: 2.3 % -- Normal range between ( 0.0 and 7.0 ) [place] #: 0.74 K/uL -- Normal range between ( 0.16 and 1.00 ) Eos #: 0.20 x10(3)/uL -- Normal range between ( 0.00 and 0.80 ) [place] %: 8.6 % -- Normal range between ( 3.0 and 9.0 ) Baso %: 0.5 % -- Normal range between ( 0.0 and 1.5 ) Baso #: 0.04 x10(3)/uL -- Normal range between ( 0.00 and 0.20 ) RDW: 13.1 % -- Normal range between ( 11.7 and 14.9 ) Neut %: 63.7 % -- Normal range between ( 34.0 and 71.0 ) Neut #: 5.47 K/uL -- Normal range between ( 1.56 and 6.13 ) Lymph %: 24.4 % -- Normal range between ( 19.3 and 53.1 ) Lymph #: 2.09 x10(3)/uL -- Normal range between ( 1.00 and 3.90 ) MPV: 11.8 fL -- Normal range between ( 9.4 and 12.4 ) IG#: 0.04 x10(3)/uL -- Normal range between ( 0.00 and 0.05 ) IG%: 0.50 % -- Normal range between ( 0.00 and 0.60 ) Urinalysis 07/23/2020 1:35 PM Urine Nitrite: Negative Urine Leukocyte Esterase: Negative Urine Appearance: Clear Urine Glucose Dipstick: >=1000 Urine Blood Dipstick: Negative Urine Type: U CleanCatch Urine Urobilinogen Dipstick: 0.2 EU/dL Urine Protein Dipstick: Negative Urine Color: Yellow Urine Ketones Dipstick: Trace Urine pH Dipstick: 5.5 -- Normal range between ( 6.0 and 8.0 ) Urine Bilirubin Dipstick: Negative Urine Specific [place]: *1.041 -- Normal range between ( 1.005 and 1.030 ) General Chemistry 07/23/2020 9:24 AM eGFR : >60 mL/min/1.73m2 eGFR NonAfrican: >60 mL/min/1.73m2 07/23/2020 9:15 AM Creatinine Level: 0.80 mg/dL -- Normal range between ( 0.55 and 1.02 ) Sodium Level: 136 mmol/L -- Normal range between ( 136 and 146 ) Potassium Level: 4.1 mmol/L -- Normal range between ( 3.5 and 5.1 ) Chloride Level: 106 mmol/L -- Normal range between ( 102 and 112 ) Carbon Dioxide Level: 22 mmol/L -- Normal range between ( 21 and 32 ) Anion Gap: 12 -- Normal range between ( 9 and 20 ) Bilirubin Total: 0.7 mg/dL -- Normal range between ( 0.2 and 1.2 ) A/G Ratio: 0.9 -- Normal range between ( 1.1 and 2.5 ) ALT: 37 Units/Liter -- Normal range between ( 13 and 56 ) AST: 22 Units/Liter -- Normal range between ( 5 and 37 ) Globulin: 4.2 Gram/dL -- Normal range between ( 1.5 and 4.5 ) Alk Phos: 132 Units/Liter -- Normal range between ( 27 and 136 ) Bun/Creatinine: 12.5 -- Normal range between ( 8.0 and 20.0 ) Calcium Level: 9.2 mg/dL -- Normal range between ( 8.4 and 10.1 ) Glucose Level: 336 mg/dL -- Normal range between ( 74 and 106 ) Blood Urea Nitrogen: 10 mg/dL -- Normal range between ( 7 and 22 ) Protein Total: 8.0 Gram/dL -- Normal range between ( 6.4 and 8.2 ) Albumin Level: 3.8 Gram/dL -- Normal range between ( 3.4 and 5.0 ) Lipase Level: 170 Units/Liter -- Normal range between ( 73 and 393 ) Cardiac Specific Markers 07/23/2020 12:14 PM Troponin I Ultra: <0.015 ng/mL -- Normal range between ( 0.015 and 0.045 ) Coagulation 07/23/2020 9:24 AM D Dimer Quant: See comment mg/L FEU -- Normal range between ( 0.00 and 0.58 ) Diagnostic Radiology 07/23/2020 9:47 AM CR Chest 1 Vw Portable: CR Chest 1 Vw Portable Education Materials Nonspecific Chest Pain, Adult Chest pain can be caused by many different conditions. It can be caused by a condition that is life-threatening and requires treatment right away. It can also be caused by something that is not life-threatening. If you have chest pain, it can be hard to know the difference, so it is important to get help right away to make sure that you do not have a serious condition. Some life-threatening causes of chest pain include: ??? Heart attack. ??? A tear in the body's main blood vessel (aortic dissection). ??? Inflammation around your heart (pericarditis). ??? A problem in the lungs, such as a blood clot (pulmonary embolism) or a collapsed lung (pneumothorax). Some non life-threatening causes of chest pain include: ??? Heartburn. ??? Anxiety or stress. ??? Damage to the bones, muscles, and cartilage that make up your chest wall. ??? Pneumonia or bronchitis. ??? Shingles infection (varicella-zoster virus). Chest pain can feel like: ??? Pain or discomfort on the surface of your chest or deep in your chest. ??? Crushing, pressure, aching, or squeezing pain. ??? Burning or tingling. ??? Dull or sharp pain that is worse when you move, cough, or take a deep breath. ??? Pain or discomfort that is also felt in your back, neck, jaw, shoulder, or arm, or pain that spreads to any of these areas. Your chest pain may come and go. It may also be constant. Your health care provider will do lab tests and other studies to find the cause of your pain. Treatment will depend on the cause of your chest pain. Follow these instructions at home: Medicines ??? Take gdxz-tzz-rjxsrhx and prescription medicines only as told by your health care provider. ??? If you were prescribed an antibiotic, take it as told by your health care provider. Do not stop taking the antibiotic even if you start to feel better. Lifestyle ??? Rest as directed by your health care provider. ??? Do not use any products that contain nicotine or tobacco, such as cigarettes and e-cigarettes. If you need help quitting, ask your health care provider. ??? Do not drink alcohol. ??? Make healthy lifestyle choices as recommended. These may include: ? Getting regular exercise. Ask your health care provider to suggest some activities that are safe for you. ? Eating a heart-healthy diet. This includes plenty of fresh fruits and vegetables, whole grains, low-fat (lean) protein, and low-fat dairy products. A dietitian can help you find healthy eating options. ? Maintaining a healthy weight. ? Managing any other health conditions you have, such as high blood pressure (hypertension) or diabetes. ? Reducing stress, such as with yoga or relaxation techniques. General instructions ??? Pay attention to any changes in your symptoms. Tell your health care provider about them or any new symptoms. ??? Avoid any activities that cause chest pain. ??? Keep all follow-up visits as told by your health care provider. This is important. This includes visits for any further testing if your chest pain does not go away. Contact a health care provider if: ??? Your chest pain does not go away. ??? You feel depressed. ??? You have a fever. Get help right away if: ??? Your chest pain gets worse. ??? You have a cough that gets worse, or you cough up blood. ??? You have severe pain in your abdomen. ??? You faint. ??? You have sudden, unexplained chest discomfort. ??? You have sudden, unexplained discomfort in your arms, back, neck, or jaw. ??? You have shortness of breath at any time. ??? You suddenly start to sweat, or your skin gets clammy. ??? You feel nausea or you vomit. ??? You suddenly feel lightheaded or dizzy. ??? You have severe weakness, or unexplained weakness or fatigue. ??? Your heart begins to beat quickly, or it feels like it is skipping beats. These symptoms may represent a serious problem that is an emergency. Do not wait to see if the symptoms will go away. Get medical help right away. Call your local emergency services (911 in the [place] Do not drive yourself to the hospital. Summary ??? Chest pain can be caused by a condition that is serious and requires urgent treatment. It may also be caused by something that is not life-threatening. ??? If you have chest pain, it is very important to see your health care provider. Your health care provider may do lab tests and other studies to find the cause of your pain. ??? Follow your health care provider's instructions on taking medicines, making lifestyle changes, and getting emergency treatment if symptoms become worse. ??? Keep all follow-up visits as told by your health care provider. This includes visits for any further testing if your chest pain does not go away. This information is not intended to replace advice given to you by your health care provider. Make sure you discuss any questions you have with your health care provider. Document Released: 05/04/2006 Document Revised: 01/25/2019 Document Reviewed: 01/25/2019 [employer] Patient Education ?? 2020 [employer] Chest Wall Pain Chest wall pain is pain in or around the bones and muscles of your chest. Sometimes, an injury causes this pain. Excessive coughing or overuse of arm and chest muscles may also cause chest wall pain. Sometimes, the cause may not be known. This pain may take several weeks or longer to get better. Follow these instructions at home: Managing pain, stiffness, and swelling ??? If directed, put ice on the painful area: ? Put ice in a plastic bag. ? Place a towel between your skin and the bag. ? Leave the ice on for 20 minutes, 2???3 times per day. Activity ??? Rest as told by your health care provider. ??? Avoid activities that cause pain. These include any activities that use your chest muscles or your abdominal and side muscles to lift heavy items. Ask your health care provider what activities are safe for you. General instructions ??? Take vhay-nxq-wtwjcma and prescription medicines only as told by your health care provider. ??? Do not use any products that contain nicotine or tobacco, such as cigarettes, e-cigarettes, and chewing tobacco. These can delay healing after injury. If you need help quitting, ask your health care provider. ??? Keep all follow-up visits as told by your health care provider. This is important. Contact a health care provider if: ??? You have a fever. ??? Your chest pain becomes worse. ??? You have new symptoms. Get help right away if: ??? You have nausea or vomiting. ??? You feel sweaty or light-headed. ??? You have a cough with mucus from your lungs (sputum) or you cough up blood. ??? You develop shortness of breath. These symptoms may represent a serious problem that is an emergency. Do not wait to see if the symptoms will go away. Get medical help right away. Call your local emergency services (911 in the [place] Do not drive yourself to the hospital. Summary ??? Chest wall pain is pain in or around the bones and muscles of your chest. ??? Depending on the cause, it may be treated with ice, rest, medicines, and avoiding activities that cause pain. ??? Contact a health care provider if you have a fever, worsening chest pain, or new symptoms. ??? Get help right away if you feel light-headed or you develop shortness of breath. These symptoms may be an emergency. This information is not intended to replace advice given to you by your health care provider. Make sure you discuss any questions you have with your health care provider. Document Released: 07/25/2006 Document Revised: 01/25/2019 Document Reviewed: 01/25/2019 [employer] Patient Education ?? 2020 [employer] Emergency Awareness and Preventative Care STROKE is an EMERGENCY Every Minute Counts Act FAST and Check for these signs: FACE Does the face look uneven? ARM Does one arm drift down? SPEECH Does their speech sound strange? TIME Call at any sign of stroke Stroke Risk Factors Atrial Fibrillation (irregular heartbeat) Diabetes Family history of stroke Heart Disease Heavy alcohol use High Blood Pressure High Cholesterol Physical inactivity and obesity Smoking Cigarette Smoking The facts are clear, cigarette smoking will shorten your life. Smoking can cause many illnesses along the way. As a healthcare provider, we recommend that you stop smoking. Assistance with quitting is available by contacting 9-295-DUKW-NOW. This is a free resource providing counseling, support, and referral. Or you may contact your personal physician. [place] Suicide Prevention Lifeline: The National Suicide Prevention Lifeline is a national network of local crisis centers that provides free and confidential emotional support to people in suicidal crisis or emotional distress 24 hours a day, 7 days a week. Don't Wait! Stop a Heart Attack Before it Starts What is a heart attack? A heart attack is damage or to a part of the heart from severely decreased or lack of blood flow to the heart. Over time, arteries can become narrow from the buildup of fat and cholesterol, which is called plaque. The plaque can rupture causing a blood clot to form. When the blood clot forms, the artery can become severely narrowed or completely blocked, causing a heart attack. Heart attack is the leading cause of in the [place]. 85% of muscle damage occurs within the first 2 hours. Delay in the recognition of heart attack symptoms increases the chances of . Know the early symptoms of a heart attack: Nausea Feeling of fullness in chest Jaw Pain Pain that travels down one or both arms Fatigue/being tired Anxiety Back Pain Chest pressure, squeezing, or discomfort Shortness of breath Sweating, or a cold sweat Feeling of impending doom There are unusual signs of a heart attack, too! Women, the elderly, and diabetics may present with atypical symptoms: Fainting/dizziness Weakness Confusion Risk Factors for a Heart Attack Some heart disease risk factors, such as age and family history, cannot be changed. Others, like smoking and lack of exercise, can be changed. Smoking High Cholesterol High Blood Pressure Family History Obesity Age Gender (Males are at higher risk) Lack of Exercise Diabetes Diet Stress Excessive Alcohol Intake If you or someone you know is experiencing the signs and symptoms of a heart attack, DON???T DELAY. Call immediately and seek help. If someone collapses, perform CPR! Do not attempt to drive if you are having symptoms of heart attack. Hands-Only CPR Why Hands-Only CPR? Hands-Only CPR has been shown to be as effective as conventional CPR for cardiac arrests that occur outside of a hospital. Survival depends on immediately receiving CPR from someone nearby. How do you perform Hands-Only CPR? There are two easy steps: Call 9-1-1 if you see a teen or adult collapse Push hard and fast in the center of the chest at a beat of 100 beats per minute. Save a life! 4 WAYS TO GET AHEAD OF SEPSIS SEPSIS is a MEDICAL EMERGENCY. Time matters! Infections put you and your family at risk for a life-threatening condition called sepsis. Sepsis is the body's extreme response to an infection. It is life-threatening, and without timely treatment, sepsis can rapidly lead to tissue damage, organ failure, and . Sepsis happens when an infection you already have-in your skin, lungs, urinary tract or somewhere else-triggers a chain reaction throughout your body. 1 PREVENT INFECTIONS Take good care of chronic conditions. Talk to your doctor about getting the recommended vaccines. 2 PRACTICE GOOD HYGIENE Wash your hands frequently. Keep cuts or open sores clean and covered until they are healed. 3 KNOW THE SYMPTOMS Confusion or disorientation Shortness of breath High heart rate Fever, shivering, or feeling very cold Extreme pain or discomfort Clammy or sweaty skin 4 ACT FAST Get medical care IMMEDIATELY if you suspect sepsis or if you have an infection that is not getting better or is getting worse. To learn more about sepsis and how to prevent infections, visit www.cdc.gov/sepsis. The examination and treatment you have received in the Emergency Department has been done to provide an appropriate evaluation and stabilizing treatment on an emergency basis only. Given the limited resources, it is not meant to be a substitute for complete medical care. The follow-up doctor you named will receive a copy of your records and all test reports. IT IS IMPORTANT THAT YOU SCHEDULE A FOLLOW-UP APPOINTMENT AND ARE RE-EVALUATED. You should report any new complaints, symptoms, or remaining problems at that time. IT IS IMPOSSIBLE FOR THE EMERGENCY DEPARTMENT TO RECOGNIZE AND TREAT ALL ELEMENTS OF INJURY OR ILLNESS IN A SINGLE VISIT. If you have been referred to a specialist physician, it means that we believe you may have a condition that requires the expertise of a specialist. These physicians work in partnership with the hospital and have agreed to see referred patients in their office for further evaluation. KEEP IN MIND THAT THE SPECIALIST HAS HIS/HER OWN OFFICE POLICIES WHICH MAY REQUIRE PROPER INSURANCE OR PAYMENT UP FRONT BEFORE THE SPECIALIST WILL SEE YOU. It is your responsibility to call the specialist physician to make an appointment. We do not have the ability to refer patients to specialists/physicians that work with specific insurance companies. Please be advised that all financial charges or billing practices are determined by that practice, not the hospital. If your insurance company requires that you see a specialist from their approved list, it is your responsibility to contact your insurance company to make those arrangements. It is also your responsibility to follow any other requirements of your insurance company necessary to obtain coverage for claims submitted. We will bill your insurance; however, you are responsible today for any co-pay amounts. You will receive a separate bill for any services you may have received including: emergency, radiology, or pathology physicians. Patient Name:NUNO CHU JANELLE I have received this information and was given the opportunity to ask questions. Patient/Combination Window Installer Name: Patient/Combination Window Installer Signature: Relationship to Patient: Clinician/Hospital Combination Window Installer Signature: Please Provide a Telephone Number Where You Can Be Reached: Is it Permissible To Leave a Message? Date: Electronically signed by Rob, [facility] Conversion Patient Financial Services Coordinator Cerner at 11/26/2022 12:11 PM CDT documented in this encounter Plan of Treatment Not on file documented as of this encounter Visit Diagnoses Not on filedocumented in this encounter Care Teams Tick Inspector Relationship Specialty Start Date End Date Justine Klein MD PCP - General General Internal Medicine 11/02/22 documented as of this encounter
--- OUTSIDE RECORDS SUMMARY | 2025-04-15 09:42 | XMS_ITS | Encounter Summary ---
Author Organization [employer] ([place], [place], [place], [place]) Address [address] [place] [address] Care Team Providers Care Spline Rolling Machine Job Setter Name Role Phone Justine Klein MD Primary Care Provider [phone] Encounter Details Date Type Department Care Team (Late st Contact Info) Description 07/23/2020 Transcribed Document [facility] [place] Family Medicine [address] [place] [address] ProviderRandi MD [address] [place] [address] Social History Tobacco Use Types Packs/Day Years Used Date Smoking Tobacco: Never Assessed Comments Unknown Sex and Gender Information Value Date Recorded Sex Assigned at Not on file Legal Sex Female 1:29 PM CDT Gender Identity Not on file Sexual Orientation Not on file documented as of this encounter Miscellaneous Notes * Cerner Conversion Note - Randi ProviderMD - 07/23/2020 8:54 AM MICROFICHE CAMERA OPERATOR ED Triage Entered On: 07/23/2020 9:10 EST Performed On: 07/23/2020 9:04 EST by NERI REYES POINT OF CARE SPECIALIST Triage Across the Room Chief Complaint : Pt here with pain Lt chest/rib pain x 2 weeks. No known injury. Triage Date/Time : 07/23/2020 9:04 EST NERI REYES RN - 07/23/2020 9:04 EST DCP GENERIC CODE Tracking Acuity : 3 - Urgent Tracking Group : [facility] ED NERI REYES RN - 07/23/2020 9:04 EST Mode of Arrival : Ambulatory Transported to ED by : Private vehicle To Room Via : Ambulate Accompanied By : Unaccompanied ED Vital Signs : Document Height & Weight : Document ED Allergies : Document ED Reason for Visit : Document NERI REYES RN - 07/23/2020 9:04 EST Infectious Disease History Has the patient ever been tested for COVID-19? : No, Patient stated Does patient have symptoms of COVID-19? : No COVID19 Screening : No Experiencing Infectious Disease Symptoms : No symptoms Physical contact outside [place] in the last 30 days : No Infectious Disease History : Chicken pox/Shingles, Influenza, Measles, Mumps Tuberculosis Symptoms : None NERI REYES RN - 07/23/2020 9:04 EST Vital Signs ED Temperature Source : Oral Temperature Mode : Fahrenheit Temperature, Fahrenheit : 97.8 Deg F Clinical Temperature, C : 36.6 Deg C Oxygen Therapy Mode : Room air Peripheral Pulse Rate : 87 bpm Respiratory Rate : 20 Breaths/Min Systolic Blood Pressure : 161 mmHg (HI) Diastolic Blood Pressure : 97 mmHg (HI) Oxygen Saturation : 96 % NERI REYES RN - 07/23/2020 9:04 EST Allergy (As Of: 07/23/2020 09:10:43 EST) Allergies (Active) acetaminophen Estimated Onset Date: Unspecified ; Created By: [email or web address]; Reaction Status: Active ; Category: Drug ; Substance: acetaminophen ; Type: Allergy ; Updated By: EZIO Rust; Reviewed Date: 07/23/2020 9:08 EST Latex Estimated Onset Date: Unspecified ; Created By: NERI REYES RN; Reaction Status: Active ; Category: Other ; Substance: Latex ; Type: Allergy ; Updated By: NERI REYES RN; Reviewed Date: 07/23/2020 9:08 EST Diagnosis Control ED (As Of: 07/23/2020 09:10:43 EST) Problems(Active) Hypertension (SNOMED CT :5461933245 ) Name of Problem: Hypertension ; Recorder: SHILPA JACOBS RN; Confirmation: Confirmed ; Classification: Medical ; Code: [id number] ; Contributor System: [employer] ; Last Updated: 08/12/2014 10:02 EST ; Life Cycle Date: 08/12/2014 ; Life Cycle Status: Active ; Vocabulary: SNOMED CT Morbid obesity (SNOMED CT :257045383 ) Name of Problem: Morbid obesity ; Recorder: NERI RODRIGUEZ PA; Confirmation: Confirmed ; Classification: Medical ; Code: [id number] ; Contributor System: [employer] ; Last Updated: 08/12/2014 12:49 EST ; Life Cycle Date: 08/12/2014 ; Life Cycle Status: Active ; Responsible Provider: NERI RODRIGUEZ PA; Vocabulary: SNOMED CT Diagnoses(Active) Chest pain Date: 07/23/2020 ; Diagnosis Type: Reason For Visit ; Confirmation: Complaint of ; Clinical Dx: Chest pain ; Classification: Medical ; Clinical Service: Emergency medicine ; Code: PNED ; Probability: 0 ; Diagnosis Code: [id number] ED Height and Weight Height Source : Stated Height Entry Format : [place] Height, Feet : 5 ft(Converted to: 152 cm, 60 Inch) Height, Inches : 7 Inch(Converted to: 0 ft 7 Inch, 17.78 cm) Clinical Height : 170.18 cm Weight Source, ED : Critical estimated dosing weight Weight Entry Format : [place] Weight, Pounds : 285 lb Clinical Dosing Weight : 129.55 kg Body Surface Area (BSA) : 2.35 m2 Body Mass Index : 44.7 kg/m2 (>HHI) [place] Body Weight (IBW) : 61.16 kg NERI REYES RN - 07/23/2020 9:04 EST Electronically signed by [facility] Conversion Track Inspector Cerner at 11/26/2022 12:12 PM CDT documented in this encounter Plan of Treatment Not on file documented as of this encounter Visit Diagnoses Not on filedocumented in this encounter Care Teams Spline Rolling Machine Job Setter Relationship Specialty Start Date End Date Justine Klein MD PCP - General General Internal Medicine 11/02/22 documented as of this encounter
--- OUTSIDE RECORDS SUMMARY | 2025-04-15 09:42 | XMS_ITS | Encounter Summary ---
Author Organization [employer] ([place], [place], [place], [place]) Address [address] [place] [address] Care Team Providers Care Hides Inspector Name Role Phone Justine Klein MD Primary Care Provider [phone] Encounter Details Date Type Department Care Team (Late st Contact Info) Description 07/23/2020 Transcribed Document [facility] [place] [facility] [place] [address] ProviderRandi MD [address] [place] [address] Social History Tobacco Use Types Packs/Day Years Used Date Smoking Tobacco: Never Assessed Comments Unknown Sex and Gender Information Value Date Recorded Sex Assigned at Not on file Legal Sex Female 1:29 PM CDT Gender Identity Not on file Sexual Orientation Not on file documented as of this encounter Miscellaneous Notes * Cerner Conversion Note - Randi Gaines MD - 07/23/2020 8:54 AM COOK COLD MEAT ED Assessment Entered On: 07/23/2020 10:24 EST Performed On: 07/23/2020 10:23 EST by UMANG POOLE RN ED Quick Look Assessment Level of Consciousness : Alert, Awake Affect/Behavior : Appropriate, Calm, Cooperative Orientation : Oriented x 4 Skin Temperature : Warm Skin Description : Dry UMANG POOLE RN - 07/23/2020 10:23 EST ED General-Functional Assess Information Obtained From : Patient Communication Barrier : None Primary Language : Trinidadian Any Spiritual/Cultural Needs or Requests : No Currently in Unsafe Situation : No UMANG POOLE RN - 07/23/2020 10:23 EST Social Habits Smoking Status : Never (less than 100 in lifetime; none in last 30 days) Smokeless Tobacco Status : Never Desires Tobacco Cessation Calc : 0 UMANG POOLE RN - 07/23/2020 10:23 EST Social History (As Of: 07/23/2020 10:24:08 EST) Home/Environment: Lives with Children. Living situation: Home/Independent. (Last Updated: 03/01/2015 13:18:42 EDT by NATHANIEL BURNS MD-EMR) Employment/School: Employed (Last Updated: 03/01/2015 13:18:53 EDT by NATHANIEL BURNS MD-EMR) Cardiovascular ASMT, ED Cardiovascular Assessment WDL : WDL with exceptions UMANG POOLE RN - 07/23/2020 10:23 EST Gastrointestinal ED Gastrointestinal Assessment WDL : WDL with exceptions UMANG POOLE RN - 07/23/2020 10:23 EST documented in this encounter Plan of Treatment Not on file documented as of this encounter Visit Diagnoses Not on filedocumented in this encounter Care Teams Hides Inspector Relationship Specialty Start Date End Date Justine Klein MD PCP - General General Internal Medicine 11/02/22 documented as of this encounter
--- OUTSIDE RECORDS SUMMARY | 2025-04-15 09:42 | XMS_ITS | Encounter Summary ---
Author Organization [employer] ([place], [place], [place], [place]) Address [address] [place] [address] Care Team Providers Care Automotive Mechanic Name Role Phone Justine Klein MD Primary Care Provider [phone] Encounter Details Date Type Department Care Team (Late st Contact Info) Description 08/02/2019 Transcribed Document [facility] [place] Family [place] [facility] [place] [address] ProviderRandi MD [address] [place] [id number] Social History Tobacco Use Types Packs/Day Years Used Date Smoking Tobacco: Never Assessed Comments Unknown Sex and Gender Information Value Date Recorded Sex Assigned at Not on file Legal Sex Female 1:29 PM CDT Gender Identity Not on file Sexual Orientation Not on file documented as of this encounter Miscellaneous Notes * Cerner Conversion Note - Randi Gaines MD - 08/02/2019 6:23 PM COMMERCIAL REPRESENTATIVE ED Discharge Entered On: 08/02/2019 18:24 EST Performed On: 08/02/2019 18:23 EST by SHEA HAYES RN Discharge Process Patient Disposition : Discharge Personal Belongings With Patient : Yes Patient Education Completed : Yes Teaching Evaluation : Verbalizes understanding IV Discontinued : Not applicable Nursing Documentation Completed : Yes SHEA HAYES RN - 08/02/2019 18:23 EST ED Discharge Discharge To : Home with ambulatory/outpatient follow-up Mode Of Departure : Ambulatory Accompanied By : Daughter Discharge Instructions Reviewed With, Opportunity For Questions Given : Patient Prescriptions Given to Patient : No SHEA HAYES RN - 08/02/2019 18:23 EST Electronically signed by [facility] Conversion Water Treatment Plant Supervisor Cerner at 11/26/2022 12:17 PM CDT documented in this encounter Plan of Treatment Not on file documented as of this encounter Visit Diagnoses Not on filedocumented in this encounter Care Teams Automotive Mechanic Relationship Specialty Start Date End Date Justine Klein MD PCP - General General Internal Medicine 11/02/22 documented as of this encounter
--- OUTSIDE RECORDS SUMMARY | 2025-04-15 09:42 | XMS_ITS | Clinical Summary ---
Author Organization [facility] Address [address] [place] [address] Care Team Providers Care Candle Wrapper Name Role Phone Justine Klein MD Primary Care Provider [phone] Allergies Active Allergy Reactions Criticality Noted Date Comments Red Dye #40 (Allura Red) Nausea And Vomiting,GI Intolerance 12/06/2022 Unsure which red dye #, generally stays away from all. Medications cloNIDine (CATAPRES) 0.1 MG tablet Take 1 tablet by mouth Daily As Needed. Take if BP >170/105 11/18/2022 Active loratadine (CLARITIN) 10 MG tablet Take 1 tablet by mouth Daily As Needed for Allergies. Active glimepiride (AMARYL) 1 MG tablet Take 1 tablet by mouth Daily As Needed. Takes if BG >150, only takes once daily Active magnesium oxide (MAG-OX) 400 MG tablet Take 1 tablet by mouth Daily. Active Lipoic Acid 150 MG capsule Take 1 capsule by mouth Daily. Active Cinnamon 500 MG capsule Take 1 capsule by mouth Daily. Active Zinc 100 MG tablet Take 1 tablet by mouth Daily. Uses a water additive Active Iodine Strong, Lugols, (strong iodine) 5 % solution Take 0.2 mL by mouth Daily. Active spironolactone (ALDACTONE) 25 MG tablet Take 1 tablet by mouth Daily. 90 tablet 1 01/28/2023 Active carvedilol (COREG) 25 MG tablet TAKE 1 TABLET BY MOUTH 2 (TWO) TIMES A DAY. NEEDS APPT FOR FURTHER REFILLS 60 tablet 07/18/2023 Active lisinopril (PRINIVIL,ZESTR IL) 40 MG tablet TAKE 1 TABLET BY MOUTH EVERY NIGHT AT BEDTIME. NEEDS APPT FOR FURTHER REFILLS 30 tablet 07/18/2023 Active Active Problems Problem Noted Date Diagnosed Date Type 2 diabetes mellitus wit h hyperglycemia, without long-term current use of insulin 06/17/2023 Overview (06/17/2023): Diagnosed in 2016. Treated with metformin (did not tolerate due to leg pain) Then sfu/ then a good diet and states she did well. Never took injectables Bg checks are done daily Typically her numbers are about 200 Complications: Eyes- none Kidneys- ok Feet- has symptoms Liver- has nask Vascular- none Associated conditions: overweight, Nutrition: eats 2 meals per day/ Physical activity: housework Assessment & Plan (06/17/2023 4:48 PM EST): In poor control and at high risk of complications. Her diet has been quite poor. I recommended using a glp1 according to ada guidelines. She does not want to do that yet . She states she will improve her diet. Will recheck A1c in 3 months and readdress Thyroid nodule 06/17/2023 Overview (06/17/2023): Nodule noted in right neck on exam Procedure: thyroid ultrasound Indications: nodule noted on exam Results: left lobe is small and heterogeneous. Right lobe is replaced by a large hyperechoic nodule with surrounding halo measuring over 4 cm in size Assessment & Plan (06/17/2023 5:02 PM EST): Huge right thyroid nodule. Will check tft's to make sure it's not a hot nodule Assuming it's not, will refer for surgery. 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 Repeat in November was read as the nodule being in the left adrenal gland. We called radiology to clarify. The nodule is in the right adrenal gland. It is 1.5 cm in size. She had negative dex suppression test/ normal 24 hour urine cortisol Normal plasma catecols. Kostas was 8 , renin 0.5 but she was on aldactone at the time. She has noted dramatic improvement in symptoms and bp since starting aldactone Assessment & Plan (06/17/2023 4:47 PM EST): This is not a pheo, she does not have cushings. We cannot tell if this is an aldosteronoma as she was already on aldactone but her gratifying response to the medication suggests that it might be. She is doing so well with the medication there is no need to intervene. If we lose control of her bp , we could stop the aldactone and reassess the patient for conn's syndrome with an eye towards removing the adenoma in future if needed. She will certainly need repeat Ct in spring Hypertension 12/02/2022 Family History Medical History Relation Name Comments No Known Problems Brother Coronary artery disease Father Diabetes Father No Known Problems Maternal Grandfather No Known Problems Maternal Grandmother Leukemia Mother No Known Problems Paternal Grandfather Cancer Paternal Grandmother No Known Problems Sister Relation Name Status Comments Brother Alive Father Alive Maternal Grandfather Maternal Grandmother Mother Paternal Grandfather Paternal Grandmother Sister Alive Social History Tobacco Use Types Packs/Day Years Used Date Smoking Tobacco: Former Cigarettes 0.5 2 1 7 - 1978 Smokeless Tobacco: Never Alcohol Use [...] Recorded Current Living Arrangements Not on file 10/0 04/2023 Potentially Unsafe Housing Conditions Not on [...] Orientation Straight 12/09/2022 9: 48 AM EDT Last Filed Vital Signs Vital Sign Reading Time Taken Comments Blood Pressure 142/76 06/17/2023 9:48 AM EST Pulse 82 06/17/2023 9:48 AM EST Temperature 36.2 C (97.1 F) 12/16/2022 8:11 AM EDT Respiratory Rate 20 12/16/2022 8:11 AM EDT Oxygen Saturation 98% 06/17/2023 9:48 AM EST Inhaled Oxygen Concentration - - Weight 112 kg (248 lb) 06/17/2023 9:48 AM EST Height 170.2 cm (5' 7 ) 06/17/2023 9:48 AM EST Body Mass Index 38.84 06/17/2023 9:48 AM EST Plan of Treatment Health Maintenance Due Date Last Done Comments Annual Gynecologic Pelvic and Breast Exam 1961 DIABETIC EYE EXAM 1971 DIABETIC FOOT EXAM 1971 URINE MICROALBUMIN-CREATININE RATIO (uACR) 1971 Pneumococcal Vaccine 50+ (1 of 2 - PCV) 02/06/1980 TDAP/TD VACCINES (1 - Tdap) 02/06/1980 COLOGUARD 2006 COLON CANCER SCREENING 5 YEA R SIGMOIDOSCOPY 2006 COLONOSCOPY 2006 COL[address]AL CANCER SCREENING 2006 CT COLONOGRAPHY 2006 FECAL OCCULT BLOOD TEST 2006 FIT Testing (1 year) 2006 ZOSTER VACCINE (1 of 2) 2011 ANNUAL PHYSICAL 06/21/2019 HEPATITIS C SCREENING 06/21/2019 MAMMOGRAM 11/26/2022 11/26/2020 HEMOGLOBIN A1C 12/16/2023 06/17/2023, 06/22/2019 COVID-19 Vaccine ( season) 2025 INFLUENZA VACCINE 05/08/2025 Procedures Procedure Name Priority Date/Time Associated Diagnosis Comments POCT GLYCOSYLATED HEMOGLOBIN (HGB A1C) Routine 06/17/2023 9:55 AM EST Type 2 diabetes mellitus with hyperglycemia, without long-term current use of insulin from Last 3 Months or Most Recently Relevant to Health Maintenance Results * (ABNORMAL) POC Glycosylated Hemoglobin (Hb A1C) (06/17/2023 9:55 AM EST) Hemoglobin A1C 10.2(A) 4.5 - 5.7 % [facility] Lot Number [id number] [facility] Expiration Date 11/04/2023 [facility] Blood 06/17/2023 9:55 AM EST Jorge Ellsworth MD POINT OF CARE TEST ORD ERABLES Final Result [facility]
[address] [place] [phone], from Last 3 Months or Most Recently Relevant to Health Maintenance Care Teams Candle Wrapper Relationship Specialty Start Date End Date Justine Klein MD PCP - General Internal Medicine 11/23/22
--- OUTSIDE RECORDS SUMMARY | 2025-04-15 09:42 | XMS_ITS | Encounter Summary ---
Author Organization [employer] ([place], [place], [place], [place]) Address [address] [place] [address] Care Team Providers Care Garden Labourer Name Role Phone Justine Klein MD Primary Care Provider Encounter Details Date Type Department Care Team (Late st Contact Info) Description 08/02/2019 Transcribed Document [facility] Family Medicine [address] [place] [id number] ProviderRandi MD [address] [place] [address] [phone] Social History Tobacco Use Types Packs/Day Years Used Date Smoking Tobacco: Never Assessed Comments Unknown Sex and Gender Information Value Date Recorded Sex Assigned at Not on file Legal Sex Female 1:29 PM CDT Gender Identity Not on file Sexual Orientation Not on file documented as of this encounter Miscellaneous Notes * Cerner Conversion Note - Randi Gaines MD - 08/02/2019 5:35 PM LICENSED MENTAL HEALTH COUNSELOR Patient: NUNO CHU Age: 59 years Sex: Female : 1960 Associated Diagnoses: Nonspecific chest pain Author: SARA ADAMES PA Basic Information Additional information: Chief Complaint from Nursing Triage Note : Chief Complaint 08/02/2019 13:34 EST Chief Complaint pt here c/o pain that started in her back radiating to her chest, jaw and down the right arm . History of Present Illness Patient is a 59-year-old female who presents emergency room today with complaints of chest pain. Patient reports that at about 130 this afternoon she began to experience a pain in her back that radiated into her chest, into her right arm, up her neck and into her teeth. Patient states that she felt as if something was just trying to pull her teeth out. Patient has no significant cardiac history. Patient has been diagnosed with fatty liver disease and has completely changed her diet recently to consumption of raw foods. She states that she did cheat yesterday for [place] and wonders if this has a correlation to her pain. She denies anything specific that made her pain better or worse. She states the pain lasted approximately 30 minutes and went away on its own. She denies any additional associated symptoms. At the time of interview and exam patient is asymptomatic. Review of Systems Constitutional symptoms: No fever, no chills. Respiratory symptoms: No shortness of breath, Cardiovascular symptoms: Negative except as documented in HPI. Gastrointestinal symptoms: No abdominal pain, no nausea, no vomiting, no diarrhea, no constipation. Musculoskeletal symptoms: Negative except as documented in HPI. Additional review of systems information: All other systems reviewed and otherwise negative. Health Status Allergies: Allergic Reactions (Selected) Severity Not Documented Acetaminophen- No reactions were documented. Codeine- No reactions were documented. OxyCODONE- Nausea and nausea. . Past Medical/ Family/ Social History Surgical history: No active procedure history items have been selected or recorded. . Family history: No family history items have been selected or recorded. . Social history: Social & Psychosocial Habits Employment/School 03/01/2015 Status: Employed Home/Environment 03/01/2015 Lives with: Children Living situation: Home/Independent . Problem list: Active Problems (2) Hypertension Morbid obesity . Physical Examination Vital Signs Vital Signs/Vital Measures 08/02/2019 18:06 EST Systolic Blood Pressure 185 mmHg HI Diastolic Blood Pressure 88 mmHg Heart Rate Monitored 66 bpm Respiratory Rate 18 Breaths/Min Oxygen Saturation 97 % Oxygen Therapy Mode Room air 08/02/2019 13:34 EST Systolic Blood Pressure 203 mmHg HI Diastolic Blood Pressure 109 mmHg HI Temperature Source Oral Temperature Mode Fahrenheit Temperature, Fahrenheit 98 Deg F Clinical Temperature, C 36.7 Deg C Peripheral Pulse Rate 88 bpm Respiratory Rate 16 Breaths/Min Oxygen Saturation 98 % Oxygen Therapy Mode Room air . Measurements 08/02/2019 13:34 EST Height Source Stated Height Entry Format [place] Height/Length, [place] (ft) 5 ft Height/Length [place] 7 Inch CLINICALHEIGHT 170.18 cm [place] Body Weight 61.16 kg Weight Source, ED Critical estimated dosing weight Weight Entry Format Gideon Weight Venezuelan lb 270 lb CLINICALWEIGHT 122.73 kg Body Surface Area (BSA) 2.3 m2 Body Mass Index 42.4 kg/m2 >HHI . Oxygen Saturation 08/02/2019 18:06 EST Oxygen Saturation 97 % 08/02/2019 13:34 EST Oxygen Saturation 98 % . General: Alert, no acute distress. Skin: Warm, dry. Head: Normocephalic, atraumatic. Neck: Supple. Eye: Extraocular movements are intact, normal conjunctiva. Ears, nose, mouth and throat: Oral mucosa moist. Cardiovascular: Regular rate and rhythm. Respiratory: Lungs are clear to auscultation, respirations are non-labored. Chest wall: No tenderness. Gastrointestinal: Soft, Nontender, Non distended. Neurological: Alert and oriented to person, place, time, and situation, No focal neurological deficit observed, normal sensory observed, normal motor observed, normal speech observed, normal coordination observed. Psychiatric: Cooperative. Medical Decision Making Rationale: Patient presents to ED with one episode of chest pain earlier this afternoon. Resolved on its own. Negative serial troponins. Normal sinus rhythm on EKG. No acute cardiopulmonary process on pneumonia chest. Patient asymptomatic throughout stay while in the emergency department.Patient is afebrile, nontoxic appearing, vital signs stable and able to maintain O2 sats of 98% on room air. Patient will be discharged home with outpatient follow up to their primary care provider and cardiology as recommended. Patient is agreeable to plan of care of outpatient follow up, provided clear return precautions and demonstrated understanding. . Documents reviewed: Emergency department nurses' notes, emergency department records, prior records. Orders Include Previous Orders (Selected) Inpatient Orders Ordered Consult to Dietitian: Discharge: Electrocardiogram: . Electrocardiogram: Time 08/02/2019 13:41:00, rate 81, normal sinus rhythm, No ST changes, no ectopy, normal VA & QRS intervals, EP Interp, Normal sinus rhythm without acute ST elevations reviewed by Dr. Belcher. Electrocardiogram: Time 08/02/2019 18:05:00, rate 60, Sinus rhythm without acute ST elevations reviewed by Dr. Belcher. Results review: Lab results : Lab Results 08/02/2019 17:23 EST Troponin I Ultra <0.015 ng/mL 08/02/2019 13:50 EST Sodium Level 137 mmol/L Potassium Level 3.9 mmol/L Chloride Level 106 mmol/L Carbon Dioxide Level 26 mmol/L Anion Gap 9 Glucose Level 363 mg/dL HI Blood Urea Nitrogen 10 mg/dL CREATININE 0.80 mg/dL eGFR >60 mL/min/1.73m2 eGFR NonAfrican >60 mL/min/1.73m2 Bun/Creatinine 12.5 Calcium Level 8.4 mg/dL Protein Total 7.7 Gram/dL Albumin Level 3.4 Gram/dL Globulin 4.3 Gram/dL A/G Ratio 0.8 LOW Bilirubin Total 0.7 mg/dL Alk Phos 144 Units/Liter HI AST 20 Units/Liter ALT 36 Units/Liter Troponin I Ultra <0.015 ng/mL WBC 7.6 K/uL RBC 5.10 Million/uL Hgb 14.3 g/dL Hct 43.6 % MCV 85.5 fL MCH 28.0 pg MCHC 32.8 Gram/dL Platelet Count 184 K/uL MPV 11.4 fL RDW 13.2 % Neut % 60.7 % Neut # 4.59 K/uL Lymph % 28.1 % Lymph # 2.13 x10(3)/uL [place] % 6.1 % [place] # 0.46 K/uL Eos % 3.3 % Eos # 0.25 x10(3)/uL Baso % 0.5 % Baso # 0.04 x10(3)/uL Slide Review No IG# 0.10 x10(3)/uL HI IG% 1.30 % HI PT 10.4 Second(s) INR 1.0 . Radiology results: Radiology Results (Last 48 hours) [id number] -- 08/02/2019 13:21 CR Chest 2 Vws (08/02/2019 14:07) Result: TWO-VIEW CHESTINDICATION: Chest pain.FINDINGS: Two views, compared with 02/20/2010. Heart size is normal. Nopneumothorax. No consolidation. No effusion. Scattered degenerativechanges within the spine and shoulders.IMPRESSION: No acute process identified. Follow-up if symptoms persist. . Impression and Plan Diagnosis Nonspecific chest pain - Discharge, Medical Plan Condition: Improved, Stable. Disposition: Medically cleared, Discharged Admit/Transfer/Discharge: Discharge (Order): Start: 08/02/2019 18:03 EST, Discharge to: Home . Patient was given the following educational materials: Nonspecific Chest Pain. Follow up with: CAIT KIM Within 2 to 3 days Call for follow up appointment Call in the AM Follow-up as instructed Return if condition worsens Symptomatic care is recommended. Take all medications as prescribed and instructed. ; TYRONE QUIGLEY Within 2 to 3 days Call for follow up appointment with CARDIOLOGY Call in the AM Follow-up as instructed Return if condition worsens. Counseled: Patient, Family, Regarding diagnosis, Regarding diagnostic results, Regarding treatment plan, Patient indicated understanding of instructions. Notes: I certify that the Physician Cargo Checker performed the services as delegated. I agree with the assessment, treatment plan and disposition of the patient as recorded by the Physician Cargo Checker, Dr. Belcher. documented in this encounter Plan of Treatment Not on file documented as of this encounter Visit Diagnoses Not on filedocumented in this encounter Care Teams Garden Labourer Relationship Specialty Start Date End Date Justine Klein MD PCP - General General Internal Medicine 11/02/22 documented as of this encounter
--- OUTSIDE RECORDS SUMMARY | 2025-04-15 09:42 | XMS_ITS | Clinical Summary ---
Author Organization Healthcare Address [address] [place] [address] Care Team Providers Care Dry Cleaning Teacher Name Role Phone Osiris Ye DO Primary Care Provider [phone] Social History Tobacco Use Types Packs/Day Years Used Date Smoking Tobacco: Never Assessed Comments Unknown Sex and Gender Information Value Date Recorded Sex Assigned at Not on file Legal Sex Female 8:44 PM EDT Gender Identity Not on file Sexual Orientation Not on file Plan of Treatment Health Maintenance Due Date Last Done Comments [facility]-Depression Screening 1960 [facility]-/Child/Adol SDOH Screenings 1960 [facility]- SDOH Screenings 1979 [facility]-Adult SDOH Screenings 1979 [facility]-DTaP,Tdap,and Td Vaccine s (1 - Tdap) 02/06/1980 [facility]-Pap Smear 04/05/1998 04/05/1995, 07/21/1994 [facility]-Cervical Cancer Screening 04/05/2000 [facility]-HPV/Cotest 04/05/2000 04/05/1995, 07/21/1994 CT Colonography 2006 Colonoscopy 2006 FIT-DNA 2006 FIT 2006 FOBT 2006 Sigmoidoscopy 2006 [facility]-Colorectal Cancer Screening 2006 [facility]-Pneumococcal Vaccine: 50 + Years (1 of 1 - PCV) 2011 [facility]-Zoster Vaccines (1 of 2) 2011 [facility]-ITPNG-44 Vaccine (1 - season) 2025 [facility]-Influenza Vaccine (#1) 2025 [facility]-RSV Vaccine: 60+ Years o r (1 - 1-dose 75+ series) 02/06/2036 HPV Vaccines Aged Out No longer eligi ble based on patient's age to complete this topic [facility]-HIB Vaccines Aged Out No longer e ligible based on patient's age to complete this topic [facility]-Hepatitis A Vaccines Aged Out No longer eligible based on patient's age to complete this topic [facility]-IPV Vaccines Aged Out No longer e ligible based on patient's age to complete this topic [facility]-Rotavirus Vaccines Aged Out No lo nger eligible based on patient's age to complete this topic Procedures Procedure Name Priority Date/Time Associated Diagnosis Comments CYTO DATA CONVERSION Routine 04/05/1995 12:00 AM EDT from Last 3 Months or Most Recently Relevant to Health Maintenance Results * (ABNORMAL) Cytology (04/05/1995 12:00 AM EDT) 04/05/1995 04/06/1995 Narrative SUNQUEST - 04/08/1995 12:00 AM EDT [facility] MR #: [id number] [facility] NUNO CHU [place], [place] [address] 1960 (Age: 35) FW Collect Date: 04/05/1995 00:00 Receipt Date: 04/06/1995 00:00 Page 1 DEPARTMENT OF PATHOLOGY AND LABORATORY MEDICINE CYTOPATHOLOGY REPORT Email: [email or web address] [phone] * Converted Case * This report may not match the original report format ATTENDING MD/Practitioner: Ila Cooley MD Service: OB Location: Reported: 04/08/1995 00:00 Collected: 04/05/1995 00:00 INTERPRETATION CERVICAL SCRAPE/ENDOCERVICAL BRUSH ATYPICAL SQUAMOUS CELLS OF UNDETERMINED SIGNIFICANCE. SATISFACTORY FOR INTERPRETATION. Electronically Signed Out By Merle Machuca MEAGAN Booth (ASCP) Erin Larson MD Cervical cytology is a screening test primarily for squamous cancers and precursors and has associated false negative and positive results. New technologies such as liquid based sampling may decrease but will not eliminate all false negative results. Regular screening and follow-up of unexplained clinical signs and symptoms are recommended to minimize false negative results. Please see the ASCCP website (www.asccp.org) for followup recommendations. If HPV testing was requested, correlation with the results is suggested (please call Microbiology at [phone] for results). CLINICAL INFORMATION: Menstrual History: {Not Provided} Date of Last Menstrual Period: {Not Provided} SPECIMEN DESCRIPTION: A: CERVICAL/VAGINAL SMEAR, PAP ICD: F: {Not Entered} SNOMED CODES: 1; [id number] In cases where a pathologist has signed out the report, the service has been rendered in part by a resident. The signing pathologist has performed and is responsible for the reported pathologic evaluation. us Historical Provider LAB PATHOLOGY ORDERABLES Fin al Result SUNQUEST from Last 3 Months or Most Recently Relevant to Health Maintenance Care Teams Dry Cleaning Teacher Relationship Specialty Start Date End Date Osiris Ye DO [address] [place] [address] PCP - General 12/19/20
--- OUTSIDE RECORDS SUMMARY | 2025-04-15 09:42 | XMS_ITS | Referral Summary ---
Author Organization [employer] ([place], [place], [place], [place]) Address [address] [place] [address] Care Team Providers Care Clinical Research Scientist Name Role Phone Unavailable Primary Care Provider [...] Date Edgar rded Speak language other than Moldovan at home Not on file 08/26/2023 Want [...] 07/21/2023 7:38 AM EST Plan of Treatment Not on file Procedures Procedure Name Priority Date/Time Associated Diagnosis [...] family history of breast cancer. COMPARISON STUDY: [phone] from [facility] FINDINGS: Craniocaudal and mediolateral oblique images of [...] the next mammogram. At our facility, a penobscot marker is positioned over a visible skin lesion and a linear marker is used to indicate a scar. A triangular marker is placed on a self reported palpable finding. Procedure Note Provider, MD Randi - 11/23/2022 PROCEDURE: Digital screening mammogram. REASON FOR EXAM: Routine screening. FAMILY HISTORY: Unknown family history of breast cancer. COMPARISON STUDY: [phone] from [facility] FINDINGS: Craniocaudal and mediolateral oblique images of [...] the next mammogram. At our facility, a penobscot marker is positioned over a visible skin lesion and a linear marker is used to indicate a scar. A triangular marker is placed on a self reported palpable finding. [facility] Historical Provider IMG MAMMOGRAPHY ORDERAB LES Final Result from Last 3 Months or Most Recently Relevant to Health Maintenance Insurance [facility]
--- OUTSIDE RECORDS SUMMARY | 2025-04-15 09:42 | XMS_ITS | Encounter Summary ---
Author Organization [employer] ([place], [place], [place], [place]) Address [address] [place] [address] Care Team Providers Care Concrete Hopper Operator Name Role Phone Justine Klein MD Primary Care Provider [phone] Encounter Details Date Type Department Care Team (Late st Contact Info) Description 07/23/2020 Transcribed Document [facility] Radiology [address] [place] [id number] Bull Vera MD [facility] [place] [address] Social History Tobacco Use Types Packs/Day Years Used Date Smoking Tobacco: Never Assessed Comments Unknown Sex and Gender Information Value Date Recorded Sex Assigned at Not on file Legal Sex Female 1:29 PM CDT Gender Identity Not on file Sexual Orientation Not on file documented as of this encounter Miscellaneous Notes * Cerner Conversion Note - Bull Vera MD - 07/23/2020 10:11 AM EST Patient: NUNO CHU Age: 60 years Sex: Female : 1960 Associated Diagnoses: Chest wall pain Author: BULL VERA MD Basic Information Time seen: Date & time 07/23/2020 09:11:00. History source: Patient. Arrival mode: Private vehicle. History limitation: None. Additional information: Chief Complaint from Nursing Triage Note : Chief Complaint 07/23/2020 9:04 EST Chief Complaint Pt here with pain Lt chest/rib pain x 2 weeks. No known injury. . History of Present Illness Patient presents with 2 weeks of intermittent sharp pain under her left breast and to the left side of her chest. Patient states this started about 2 weeks ago and was located under her left shoulder blade. Now the pain radiates all around to under her left breast. Pain is intermittent and usually brought on by certain movements or sometimes when she eats. Pain usually subsides on its own after about 40 minutes to an hour. There is not seem to be any alleviating factors. She denies any shortness of breath, diaphoresis, or syncope associated. She has some nausea but no vomiting. Denies stool changes. No cough or congestion. Reports she is had some intermittent chills but no fevers to her knowledge. Denies any injury to her chest wall. Denies history of DVT or PE, no recent procedure, immobility, or travel. Denies any pain radiating to her abdomen. No rash.. Review of Systems Constitutional symptoms: Chills. Skin symptoms: Negative except as documented in HPI. Eye symptoms: Negative except as documented in HPI. Respiratory symptoms: Negative except as documented in HPI. Cardiovascular symptoms: Chest pain. Gastrointestinal symptoms: Negative except as documented in HPI. Musculoskeletal symptoms: Negative except as documented in HPI. Neurologic symptoms: Negative except as documented in HPI. Psychiatric symptoms: Negative except as documented in HPI. Hematologic/Lymphatic symptoms: Negative except as documented in HPI. Health Status Allergies: Allergic Reactions (Selected) Severity Not Documented Acetaminophen- No reactions were documented. Latex- No reactions were documented.. Past Medical/ Family/ Social History Surgical history: No active procedure history items have been selected or recorded.. Family history: No family history items have been selected or recorded.. Social history: Social & Psychosocial Habits Employment/School 03/01/2015 Status: Employed Home/Environment 03/01/2015 Lives with: Children Living situation: Home/Independent . Problem list: Active Problems (2) Hypertension Morbid obesity . Physical Examination Vital Signs Vital Signs/Vital Measures 07/23/2020 9:04 EST Systolic Blood Pressure 161 mmHg HI Diastolic Blood Pressure 97 mmHg HI Temperature Source Oral Temperature Mode Fahrenheit Temperature, Fahrenheit 97.8 Deg F Clinical Temperature, C 36.6 Deg C Peripheral Pulse Rate 87 bpm Respiratory Rate 20 Breaths/Min Oxygen Saturation 96 % Oxygen Therapy Mode Room air . Measurements 07/23/2020 9:04 EST Height Source Stated Height Entry Format Gideon Height/Length, LIBY[place] (ft) 5 ft Height/Length [place] 7 Inch CLINICALHEIGHT 170.18 cm [place] Body Weight 61.16 kg Weight Source, ED Critical estimated dosing weight Weight Entry Format Gideon Weight Moroccan lb 285 lb CLINICALWEIGHT 129.55 kg Body Surface Area (BSA) 2.35 m2 Body Mass Index 44.7 kg/m2 >HHI . Oxygen Saturation 07/23/2020 9:04 EST Oxygen Saturation 96 % . General: Alert, no acute distress. Skin: Warm, dry, pink. Head: Normocephalic, atraumatic. Neck: Supple, trachea midline, no tenderness. Eye: Normal conjunctiva. Ears, nose, mouth and throat: Oral mucosa moist. Cardiovascular: Regular rate and rhythm, No murmur. Respiratory: Lungs are clear to auscultation, respirations are non-labored. Chest wall: No tenderness, No deformity. Back: Nontender, Normal range of motion, Normal alignment, no step-offs. Musculoskeletal: Normal ROM, normal strength. Gastrointestinal: Soft, Nontender, Non distended. Neurological: Alert and oriented to person, place, time, and situation, No focal neurological deficit observed. Psychiatric: Cooperative, appropriate mood & affect. Medical Decision Making Differential Diagnosis: Angina, anxiety, pulmonary embolism, atypical chest pain, pleurisy. Documents reviewed: Emergency department nurses' notes. Electrocardiogram: Time 07/23/2020 09:06:00, rate 84, normal sinus rhythm, no ectopy, normal IN & QRS intervals, EP Interp, Nonspecific ST changes. Electrocardiogram: Time 07/23/2020 12:11:00, rate 64. Results review: Lab results : Lab Results 07/23/2020 13:35 EST Urine Type U CleanCatch Urine Color Yellow Urine Appearance Clear Urine Specific [place] *1.041 Urine pH Dipstick 5.5 LOW Urine Leukocyte Esterase Negative Urine Nitrite Negative Urine Protein Dipstick Negative Urine Glucose Dipstick >=1000 Urine Ketones Dipstick Trace Urine Urobilinogen Dipstick 0.2 EU/dL Urine Bilirubin Dipstick Negative Urine Blood Dipstick Negative 07/23/2020 12:14 EST Troponin I Ultra <0.015 ng/mL 07/23/2020 9:24 EST eGFR >60 mL/min/1.73m2 eGFR NonAfrican >60 mL/min/1.73m2 D Dimer Quant See comment mg/L FEU 07/23/2020 9:15 EST Sodium Level 136 mmol/L Potassium Level 4.1 mmol/L Chloride Level 106 mmol/L Carbon Dioxide Level 22 mmol/L Anion Gap 12 Glucose Level 336 mg/dL HI Blood Urea Nitrogen 10 mg/dL Creatinine Level 0.80 mg/dL Bun/Creatinine 12.5 Calcium Level 9.2 mg/dL Protein Total 8.0 Gram/dL Albumin Level 3.8 Gram/dL Globulin 4.2 Gram/dL A/G Ratio 0.9 LOW Bilirubin Total 0.7 mg/dL Alk Phos 132 Units/Liter AST 22 Units/Liter ALT 37 Units/Liter Lipase Level 170 Units/Liter Troponin I Ultra <0.015 ng/mL WBC 8.6 K/uL RBC 5.71 Million/uL HI Hgb 15.9 g/dL HI Hct 47.7 % HI MCV 83.5 fL MCH 27.8 pg MCHC 33.3 Gram/dL Platelet Count 216 K/uL MPV 11.8 fL RDW 13.1 % Neut % 63.7 % Neut # 5.47 K/uL Lymph % 24.4 % Lymph # 2.09 x10(3)/uL Arthur % 8.6 % Arthur # 0.74 K/uL Eos % 2.3 % Eos # 0.20 x10(3)/uL Baso % 0.5 % Baso # 0.04 x10(3)/uL Slide Review No IG# 0.04 x10(3)/uL IG% 0.50 % . Radiology results: Reviewed radiologist's report, Radiology Results (Last 48 hours) [id number] -- 07/23/2020 08:53 CR Chest 1 Vw Portable (07/23/2020 09:47) Result: PORTABLE CHEST 07/23/2020 8:21 AM HISTORY: Left-sided chest pain.COMPARISON: July 2019FINDINGS: The heart is proper size. The mediastinum is unremarkable. Diffuse interstitial changes are probably chronic. The lungs areotherwise clear. There is no pneumothorax. The osseous structures areunremarkable. IMPRESSION: No acute cardiopulmonary process. Continued follow-up is recommended.Images reviewed, interpreted, and dictated by Dr. Yenifer Ashley.Transcribed by Sudhakar Ruggiero (R).I have personally viewed, interpreted and dictated the examination. Eduardo read and agree with the above final transcribed report. . Reexamination/ Reevaluation Time: 07/23/2020 14:30:00 . Notes: Pain resolved after Toradol. Impression and Plan Diagnosis Chest wall pain - Discharge, Emergency medicine, Medical Plan Condition: Improved, Stable. Disposition: Medically cleared, Discharged Admit/Transfer/Discharge: Discharge (Order): Start: 07/23/2020 14:31 EST, Discharge to: Home. Prescriptions: Prescription Manager Merchandising Pharm[facility]: naproxen 500 mg oral tablet (Prescribe): 1 Tab, Oral, BID, for 7 Day(s), 14 Tab, 0 Refill(s). Patient was given the following educational materials: Chest Wall Pain, Nonspecific Chest Pain, Adult. Follow up with: ; Follow up with primary care provider Within 2 to 3 days Call for follow up appointment; Return to Emergency Department Within As needed Return if condition worsens. Counseled: Patient, Regarding diagnosis, Regarding diagnostic results, Regarding treatment plan, Regarding prescription, Patient indicated understanding of instructions. documented in this encounter Plan of Treatment Not on file documented as of this encounter Visit Diagnoses Not on filedocumented in this encounter Care Teams Concrete Hopper Operator Relationship Specialty Start Date End Date Justine Klein MD PCP - General General Internal Medicine 11/02/22 documented as of this encounter
--- OUTSIDE RECORDS SUMMARY | 2025-04-15 09:42 | XMS_ITS | Encounter Summary ---
Author Organization [employer] ([place], [place], [place], [place]) Address [address] [place] [address] Care Team Providers Care Mining Teacher Name Role Phone Justine Klein MD Primary Care Provider [phone] Encounter Details Date Type Department Care Team (Late st Contact Info) Description 07/23/2020 Transcribed Document [facility] [place] [facility] [place] [address] ProviderRandi MD [address] [place] [id number] Social History Tobacco Use Types Packs/Day Years Used Date Smoking Tobacco: Never Assessed Comments Unknown Sex and Gender Information Value Date Recorded Sex Assigned at Not on file Legal Sex Female 1:29 PM CDT Gender Identity Not on file Sexual Orientation Not on file documented as of this encounter Miscellaneous Notes * Cerner Conversion Note - Randi Gaines MD - 07/23/2020 2:[address] DRIVER ED Discharge Entered On: 07/23/2020 14:35 EST Performed On: 07/23/2020 14:34 EST by UMANG POOLE lock and dam operator Process Patient Disposition : Discharge Personal Belongings With Patient : Yes Patient Education Completed : Yes Teaching Evaluation : Verbalizes understanding IV Discontinued : Yes UMANG POOLE RN - 07/23/2020 14:34 EST ED Discharge Discharge To : Home with ambulatory/outpatient follow-up Mode Of Departure : Ambulatory Accompanied By : Spouse Discharge Instructions Reviewed With, Opportunity For Questions Given : Patient UMANG POOLE RN - 07/23/2020 14:34 EST Electronically signed by [facility], [facility] Conversion Welder Assembler Cerner at 11/26/2022 12:13 PM CDT documented in this encounter Plan of Treatment Not on file documented as of this encounter Visit Diagnoses Not on filedocumented in this encounter Care Teams Mining Teacher Relationship Specialty Start Date End Date Justine Klein MD PCP - General General Internal Medicine 11/02/22 documented as of this encounter
--- OUTSIDE RECORDS SUMMARY | 2025-04-15 09:42 | XMS_ITS | Encounter Summary ---
Author Organization [employer] ([place], [place], [place], [place]) Address [address] [place] [address] Care Team Providers Care Apartment Hotel Manager Name Role Phone Justine Klein MD Primary Care Provider [phone] Encounter Details Date Type Department Care Team (Late st Contact Info) Description 08/02/2019 Transcribed Document [facility] Family [place] [facility] [place] [address] ProviderRandi MD [address] [place] [address] [phone] Social History Tobacco Use Types Packs/Day Years Used Date Smoking Tobacco: Never Assessed Comments Unknown Sex and Gender Information Value Date Recorded Sex Assigned at Not on file Legal Sex Female 1:29 PM CDT Gender Identity Not on file Sexual Orientation Not on file documented as of this encounter Miscellaneous Notes * Cerner Conversion Note - Randi ProviderMD - 08/02/2019 1:21 PM INSURANCE COMPLIANCE ANALYST [place] Suicide Severity Rating Scale (C-SSRS) Entered On: 08/02/2019 17:28 EST Performed On: 08/02/2019 17:27 EST by SHEA HAYES RN [place] Suicide Severity Rating Scale (C-SSRS) CSSRS Past Month Wish to be : No CSSRS Past Month Suicidal Thoughts : No CSSRS Lifetime Suicide Behavior : No Suicide Severity Rating Score : 0 Suicide Severity Rating : No Additional Care Required at this time SHEA HAYES RN - 08/02/2019 17:27 EST Electronically signed by Rob [facility] Conversion Senior Gis Analyst Cerner at 11/26/2022 12:08 PM CDT documented in this encounter Plan of Treatment Not on file documented as of this encounter Visit Diagnoses Not on filedocumented in this encounter Care Teams Apartment Hotel Manager Relationship Specialty Start Date End Date Justine Klein MD PCP - General General Internal Medicine 11/02/22 documented as of this encounter
--- OUTSIDE RECORDS SUMMARY | 2025-04-15 09:42 | XMS_ITS | Encounter Summary ---
Author Organization [employer] ([place], [place], [place], [place]) Address [address] [place] [address] Care Team Providers Care Housecleaner Name Role Phone Justine Klein MD Primary Care Provider [phone] Encounter Details Date Type Department Care Team (Late st Contact Info) Description 08/02/2019 Transcribed Document [facility] [place] Family [place] [facility] [place] [address] ProviderRandi MD [address] [place] [id number] Social History Tobacco Use Types Packs/Day Years Used Date Smoking Tobacco: Never Assessed Comments Unknown Sex and Gender Information Value Date Recorded Sex Assigned at Not on file Legal Sex Female 1:29 PM CDT Gender Identity Not on file Sexual Orientation Not on file documented as of this encounter Miscellaneous Notes * Cerner Conversion Note - Randi Gaines MD - 08/02/2019 6:06 PM COLOR CHECKER ROVING OR YARN [facility] [place], [place] [id number] NUNO CHU [birth year] :1960 Visit Time:08/02/2019 Your Visit Summary Your Care Team Primary Provider: SARA ADAMES Secondary Provider: Your Diagnosis Chest pain Nonspecific chest pain Medical Information You may obtain a [...] do next Follow-Up Appointments Follow Up with TYRONE QUIGLEY When Within 2 to 3 days Comments Call for follow up appointment with CARDIOLOGY Call in the AM Follow-up as instructed Return if condition worsens Where: [address] [facility] [address] [place] [address]- Business (1) Follow Up with CAIT KIM When Within 2 to 3 days Comments Call for follow up appointment Call in the AM Follow-up as instructed Return if condition worsens Symptomatic care is recommended. Take all medications as prescribed and instructed. Where: [address] [facility] [place] [place] [address]- Business (1) Allergies acetaminophen codeine oxyCODONE (nausea, nausea) Immunizations This Visit No Immunizations Found Medications The home medications listed are only as [...] This Visit (last charted value for your 08/02/2019 visit) Hematology 08/02/2019 1:50 PM WBC: 7.6 K/uL -- Normal range between ( 4.5 and 10.5 ) RBC: 5.10 Million/uL -- Normal range between ( 3.93 and 5.22 ) Hct: 43.6 % -- Normal range between ( 34.1 and 44.9 ) Hgb: 14.3 g/dL -- Normal range between ( 11.2 and 15.7 ) Platelet Count: 184 K/uL -- Normal range between ( 163 and 369 ) MCH: 28.0 pg -- Normal range between ( 25.6 and 32.2 ) MCHC: 32.8 Gram/dL -- Normal range between ( 32.2 and 36.5 ) MCV: 85.5 fL -- Normal range between ( 79.0 and 94.8 ) Slide Review: No Eos %: 3.3 % -- Normal range between ( 0.0 and 7.0 ) Duchesne #: 0.46 K/uL -- Normal range between ( 0.16 and 1.00 ) Eos #: 0.25 x10(3)/uL -- Normal range between ( 0.00 and 0.80 ) Duchesne %: 6.1 % -- Normal range between ( 3.0 and 9.0 ) Baso %: 0.5 % -- Normal range between ( 0.0 and 1.5 ) Baso #: 0.04 x10(3)/uL -- Normal range between ( 0.00 and 0.20 ) RDW: 13.2 % -- Normal range between ( 11.7 and 14.9 ) Neut %: 60.7 % -- Normal range between ( 34.0 and 71.0 ) Neut #: 4.59 K/uL -- Normal range between ( 1.56 and 6.13 ) Lymph %: 28.1 % -- Normal range between ( 19.3 and 53.1 ) Lymph #: 2.13 x10(3)/uL -- Normal range between ( 1.00 and 3.90 ) MPV: 11.4 fL -- Normal range between ( 9.4 and 12.4 ) IG#: 0.10 x10(3)/uL -- Normal range between ( 0.00 and 0.05 ) IG%: 1.30 % -- Normal range between ( 0.00 and 0.60 ) General Chemistry 08/02/2019 1:50 PM Creatinine Level: 0.80 mg/dL -- Normal range between ( 0.55 and 1.02 ) Sodium Level: 137 mmol/L -- Normal range between ( 136 and 146 ) Potassium Level: 3.9 mmol/L -- Normal range between ( 3.5 and 5.1 ) Chloride Level: 106 mmol/L -- Normal range between ( 102 and 112 ) Carbon Dioxide Level: 26 mmol/L -- Normal range between ( 21 and 32 ) Anion Gap: 9 -- Normal range between ( 9 and 20 ) Bilirubin Total: 0.7 mg/dL -- Normal range between ( 0.2 and 1.2 ) A/G Ratio: 0.8 -- Normal range between ( 1.1 and 2.5 ) ALT: 36 Units/Liter -- Normal range between ( 13 and 56 ) AST: 20 Units/Liter -- Normal range between ( 5 and 37 ) Globulin: 4.3 Gram/dL -- Normal range between ( 1.5 and 4.5 ) Alk Phos: 144 Units/Liter -- Normal range between ( 27 and 136 ) Bun/Creatinine: 12.5 -- Normal range between ( 8.0 and 20.0 ) Calcium Level: 8.4 mg/dL -- Normal range between ( 8.4 and 10.1 ) eGFR : >60 mL/min/1.73m2 eGFR NonAfrican: >60 mL/min/1.73m2 Glucose Level: 363 mg/dL -- Normal range between ( 74 and 106 ) Blood Urea Nitrogen: 10 mg/dL -- Normal range between ( 7 and 22 ) Protein Total: 7.7 Gram/dL -- Normal range between ( 6.4 and 8.2 ) Albumin Level: 3.4 Gram/dL -- Normal range between ( 3.4 and 5.0 ) Cardiac Specific Markers 08/02/2019 5:23 PM Troponin I Ultra: <0.015 ng/mL -- Normal range between ( 0.015 and 0.045 ) Coagulation 08/02/2019 1:50 PM INR: 1.0 -- Normal range between ( 0.9 and 1.1 ) PT: 10.4 Second(s) -- Normal range between ( 9.6 and 12.0 ) Diagnostic Radiology 08/02/2019 2:07 PM CR Chest 2 Vws: CR Chest 2 Vws Education Materials Nonspecific Chest Pain Chest pain can be caused by many different conditions. There is always a chance that your pain could be related to something serious, such as a heart attack or a blood clot in your lungs. Chest pain can also be caused by conditions that are not life-threatening. If you have chest pain, it is very important to follow up with your health care provider. What are the causes? Causes of this condition include: ??? Heartburn. ??? Pneumonia or bronchitis. ??? Anxiety or stress. ??? Inflammation around your heart (pericarditis) or lung (pleuritis or pleurisy). ??? A blood clot in your lung. ??? A collapsed lung (pneumothorax). This can develop suddenly on its own (spontaneous pneumothorax) or from trauma to the chest. ??? Shingles infection (varicella-zoster virus). ??? Heart attack. ??? Damage to the bones, muscles, and cartilage that make up your chest wall. This can include: ? Bruised bones due to injury. ? Strained muscles or cartilage due to frequent or repeated coughing or overwork. ? Fracture to one or more ribs. ? Sore cartilage due to inflammation (costochondritis). What increases the risk? Risk factors for this condition may include: ??? Activities that increase your risk for trauma or injury to your chest. ??? Respiratory infections or conditions that cause frequent coughing. ??? Medical conditions or overeating that can cause heartburn. ??? Heart disease or family history of heart disease. ??? Conditions or health behaviors that increase your risk of developing a blood clot. ??? Having had chicken pox (varicella zoster). What are the signs or symptoms? Chest pain can feel like: ??? Burning or tingling on the surface of your chest or deep in your chest. ??? Crushing, pressure, aching, or squeezing pain. ??? Dull or sharp pain that is worse when you move, cough, or take a deep breath. ??? Pain that is also felt in your back, neck, shoulder, or arm, or pain that spreads to any of these areas. Your chest pain may come and go, or it may stay constant. How is this diagnosed? Lab tests or other studies may be needed to find the cause of your pain. Your health care provider may have you take a test called an ECG (electrocardiogram). An ECG records your heartbeat patterns at the time the test is performed. You may also have other tests, such as: ??? Transthoracic echocardiogram (TTE). In this test, sound waves are used to create a picture of the heart structures and to look at how blood flows through your heart. ??? Transesophageal echocardiogram (HUGO). This is a more advanced imaging test that takes images from inside your body. It allows your health care provider to see your heart in finer detail. ??? Cardiac monitoring. This allows your health care provider to monitor your heart rate and rhythm in real time. ??? Holter monitor. This is a portable device that records your heartbeat and can help to diagnose abnormal heartbeats. It allows your health care provider to track your heart activity for several days, if needed. ??? Stress tests. These can be done through exercise or by taking medicine that makes your heart beat more quickly. ??? Blood tests. ??? Other imaging tests. How is this treated? Treatment depends on what is causing your chest pain. Treatment may include: ??? Medicines. These may include: ? Acid blockers for heartburn. ? Anti-inflammatory medicine. ? Pain medicine for inflammatory conditions. ? Antibiotic medicine, if an infection is present. ? Medicines to dissolve blood clots. ? Medicines to treat coronary artery disease (CAD). ??? Supportive care for conditions that do not require medicines. This may include: ? Resting. ? Applying heat or cold packs to injured areas. ? Limiting activities until pain decreases. Follow these instructions at home: Medicines ??? If you were prescribed an antibiotic, take it as told by your health care provider. Do not stop taking the antibiotic even if you start to feel better. ??? Take gihi-skb-lvdedce and prescription medicines only as told by your health care provider. Lifestyle ??? Do not use any products that contain nicotine or tobacco, such as cigarettes and e-cigarettes. If you need help quitting, ask your health care provider. ??? Do not drink alcohol. ??? Make lifestyle changes as directed by your health care provider. These may include: ? Getting regular exercise. Ask your health care provider to suggest some activities that are safe for you. ? Eating a heart-healthy diet. A registered dietitian can help you to learn healthy eating options. ? Maintaining a healthy weight. ? Managing diabetes, if necessary. ? Reducing stress, such as with yoga or relaxation techniques. General instructions ??? Avoid any activities that bring on chest pain. ??? If heartburn is the cause for your chest pain, raise (elevate) the head of your bed about 6 inches (15 cm) by putting blocks under the legs. Sleeping with more pillows does not effectively relieve heartburn because it only changes the position of your head. ??? Keep all follow-up visits as told by your health care provider. This is important. This includes any further testing if your chest pain does not go away. Contact a health care provider if: ??? Your chest pain does not go away. ??? You have a rash with blisters on your chest. ??? You have a fever. ??? You have chills. Get help right away if: ??? Your chest pain is worse. ??? You have a cough that gets worse, or you cough up blood. ??? You have severe pain in your abdomen. ??? You have severe weakness. ??? You faint. ??? You have sudden, unexplained chest discomfort. ??? You have sudden, unexplained discomfort in your arms, back, neck, or jaw. ??? You have shortness of breath at any time. ??? You suddenly start to sweat, or your skin gets clammy. ??? You feel nauseous or you vomit. ??? You suddenly feel light-headed or dizzy. ??? Your heart begins to beat quickly, or it feels like it is skipping beats. These symptoms may represent a serious problem that is an emergency. Do not wait to see if the symptoms will go away. Get medical help right away. Call your local emergency services (911 in the [place] Do not drive yourself to the hospital. This information is not intended to replace advice given to you by your health care provider. Make sure you discuss any questions you have with your health care provider. Document Released: 05/04/2006 Document Revised: 04/18/2017 Document Reviewed: 04/18/2017 [employer] Interactive Patient Education ?? 2019 [employer]. Emergency Awareness and Preventative Care STROKE is [...] Assistance with quitting is available by contacting 7-480-NZAX-NOW. This is a free resource providing counseling, support, and referral. Or you may contact your personal physician. National Suicide Prevention Lifeline: The National Suicide Prevention [...] CPR? There are two easy steps: Call if you see a teen or adult [...] radiology, or pathology physicians. Patient Name:NUNO CHU I have received this information and was given the opportunity to ask questions. Patient/Butter Maker Name: Patient/Butter Maker Signature: Relationship to Patient: Clinician/Hospital Butter Maker Signature: Please Provide a Telephone Number Where You Can Be Reached: Is it Permissible To Leave a Message? Date: Electronically signed by Rob, [facility] Conversion Supervisor Estimator And Drafter Gabener at 11/26/2022 12:21 PM CDT documented in this encounter Plan of Treatment Not on file documented as of this encounter Visit Diagnoses Not on filedocumented in this encounter Care Teams Housecleaner Relationship Specialty Start Date End Date Justine Klein MD PCP - General General Internal Medicine 11/02/22 documented as of this encounter
--- OUTSIDE RECORDS SUMMARY | 2025-04-15 09:42 | XMS_ITS | Encounter Summary ---
Author Organization [employer] ([place], [place], [place], [place]) Address [address] [place] [address] Care Team Providers Care Contract Clerk Automobile Name Role Phone Justine Klein MD Primary Care Provider [phone] Encounter Details Date Type Department Care Team (Late st Contact Info) Description 08/03/2019 Transcribed Document [facility] [place] Family Medicine [address] [place] [address] ProviderRandi MD [address] [place] [address] Social History Tobacco Use Types Packs/Day Years Used Date Smoking Tobacco: Never Assessed Comments Unknown Sex and Gender Information Value Date Recorded Sex Assigned at Not on file Legal Sex Female 1:29 PM CDT Gender Identity Not on file Sexual Orientation Not on file documented as of this encounter Miscellaneous Notes * Cerner Conversion Note - Randi Gaines MD - 08/03/2019 3:07 PM CIGAR MAKER CR Chest 2 Vws Ordered: 08/02/2019 Auth (Verified) Reason for Exam: pain 08/02/2019 15:02 08/03/2019 15:07 (LORENZO PINEDA APRN) Reviewed by Provider, No further action required x1 documented in this encounter Plan of Treatment Not on file documented as of this encounter Visit Diagnoses Not on filedocumented in this encounter Care Teams Contract Clerk Automobile Relationship Specialty Start Date End Date Justine Klein MD PCP - General General Internal Medicine 11/02/22 documented as of this encounter
--- OUTSIDE RECORDS SUMMARY | 2025-04-15 09:42 | XMS_ITS | Encounter Summary ---
Author Organization [employer] ([place], [place], [place], [place]) Address [address] [place] [address] Care Team Providers Care Chief Underwriter Name Role Phone Justine Klein MD Primary Care Provider [phone] Encounter Details Date Type Department Care Team (Late st Contact Info) Description 07/23/2020 Transcribed Document [facility] [place] [facility] [place] [address] ProviderRandi MD [address] [place] [address] Social History Tobacco Use Types Packs/Day Years Used Date Smoking Tobacco: Never Assessed Comments Unknown Sex and Gender Information Value Date Recorded Sex Assigned at Not on file Legal Sex Female 1:29 PM CDT Gender Identity Not on file Sexual Orientation Not on file documented as of this encounter Miscellaneous Notes * Cerner Conversion Note - Randi ProviderMD - 07/23/2020 8:54 AM AREA SECRETARY Broset Violence Assessment Entered On: 07/23/2020 9:11 EST Performed On: 07/23/2020 9:11 EST by NERI REYES RN Broset Violence Assessment Broset Violence Checklist of Symptoms : None Broset Violence Symptoms Subtotal : 0 Broset Violence Symptoms Indicator : Low risk (0) NERI REYES RN - 07/23/2020 9:11 EST Electronically signed by Rob [facility] Conversion Doping Supervisor Cerner at 11/26/2022 12:15 PM CDT documented in this encounter Plan of Treatment Not on file documented as of this encounter Visit Diagnoses Not on filedocumented in this encounter Care Teams Chief Underwriter Relationship Specialty Start Date End Date Justine Klein MD PCP - General General Internal Medicine 11/02/22 documented as of this encounter
--- OUTSIDE RECORDS SUMMARY | 2025-04-15 09:42 | XMS_ITS | Encounter Summary ---
Author Organization [employer] ([place], [place], [place], [place]) Address [address] [place] [address] Care Team Providers Care Field Enumerator Name Role Phone Justine Klein MD Primary Care Provider [phone] Encounter Details Date Type Department Care Team (Late st Contact Info) Description 08/02/2019 Transcribed Document [facility] [place] Family Medicine [facility] [place] [address] ProviderRandi MD [address] [place] [id number] Social History Tobacco Use Types Packs/Day [...] Randi Gaines MD - 08/02/2019 1:21 PM BRAKE RELINER ED Triage Entered On: 08/02/2019 13:36 EST Performed On: 08/02/2019 13:34 EST by Adrian Love RN ED Triage Across the Room Chief Complaint : pt here c/o pain that started in her back radiating to her chest, jaw and down the right arm Triage Date/Time : 08/02/2019 13:34 EST Adrian Love RN - 08/02/2019 13:34 EST DCP GENERIC CODE Tracking Acuity : 2 - Emergent Tracking Group : [facility] ED Adrian Love RN - 08/02/2019 13:34 EST Mode of Arrival : Ambulatory Transported to ED by : Walk in To Room Via : Ambulate Accompanied By : Unaccompanied ED Vital Signs : Document Height & Weight : Document ED Allergies : Document ED Reason for Visit : Document Adrian Love RN - 08/02/2019 13:34 EST Infectious Disease History Infectious Disease History : Chicken pox/Shingles Fever/Chills Last 48 Hours : No Travel To Regions with Travel Advisories : No Travel Outside [place] Within Last 30 Days : No Contact With Traveler to Advisory Region : No Tuberculosis Symptoms : None Adrian Love RN - 08/02/2019 13:34 EST Vital Signs ED Temperature Source : Oral Temperature Mode : Fahrenheit Temperature, Fahrenheit : 98 Deg F Clinical Temperature, C : 36.7 Deg C Oxygen Therapy Mode : Room air Peripheral Pulse Rate : 88 bpm Respiratory Rate : 16 Breaths/Min Systolic Blood Pressure : 203 mmHg (HI) Diastolic Blood Pressure : 109 mmHg (HI) Oxygen Saturation : 98 % Adrian Love RN - 08/02/2019 13:34 EST Allergy (As Of: 08/02/2019 13:36:14 EST) Allergies (Active) acetaminophen Estimated Onset Date: Unspecified ; Created By: EZIO Rust; Reaction Status: Active ; Category: Drug ; Substance: acetaminophen ; Type: Allergy ; Updated By: EZIO Rust; Reviewed Date: 08/02/2019 13:35 EST codeine Estimated Onset Date: Unspecified ; Created By: EZIO Rust; Reaction Status: Active ; Category: Drug ; Substance: codeine ; Type: Allergy ; Updated By: EZIO Rust; Reviewed Date: 08/02/2019 13:35 EST oxyCODONE Estimated Onset Date: Unspecified ; Reactions: nausea, nausea ; Created By: EZIO Rust; Reaction Status: Active ; Category: Drug ; Substance: oxyCODONE ; Type: Allergy ; Updated By: EZIO Rust; Reviewed Date: 08/02/2019 13:35 EST Diagnosis Control ED (As Of: 08/02/2019 13:36:14 EST) Problems(Active) Hypertension (SNOMED CT :1064264811 ) Name of Problem: Hypertension ; Recorder: SHILPA JACOBS RN; Confirmation: Confirmed ; Classification: Medical ; Code: [id number] ; Contributor System: Schematic LabsChart ; Last Updated: 08/12/2014 10:02 EST ; Life Cycle Date: 08/12/2014 ; Life Cycle Status: Active ; Vocabulary: SNOMED CT Morbid obesity (SNOMED CT :145784652 ) Name of Problem: Morbid obesity ; Recorder: NERI RODRIGUEZ PA-C; Confirmation: Confirmed ; Classification: Medical ; Code: [id number] ; Contributor System: Schematic LabsChart ; Last Updated: 08/12/2014 12:49 EST ; Life Cycle Date: 08/12/2014 ; Life Cycle Status: Active ; Responsible Provider: NERI RODRIGUEZ PA-C; Vocabulary: SNOMED CT Diagnoses(Active) Chest pain Date: 08/02/2019 ; Diagnosis Type: Reason For Visit ; Confirmation: Complaint of ; Clinical Dx: Chest pain ; Classification: Medical ; Clinical Service: Emergency medicine ; Code: PNED ; Probability: 0 ; Diagnosis Code: [id number] ED Height and Weight Height Source : Stated Height Entry Format : [place] Height, Feet : 5 ft(Converted to: 152 cm, 60 Inch) Height, Inches : 7 Inch(Converted to: 0 ft 7 Inch, 17.78 cm) Clinical Height : 170.18 cm Weight Source, ED : Critical estimated dosing weight Weight Entry Format : [place] Weight, Pounds : 270 lb Clinical Dosing Weight : 122.73 kg Body Surface Area (BSA) : 2.3 m2 Body Mass Index : 42.4 kg/m2 (>HHI) [place] Body Weight (IBW) : 61.16 kg Adrian Love RN - 08/02/2019 13:34 EST Electronically signed by [facility] Conversion Automated Teller Manager Cerner at 11/26/2022 12:17 PM CDT documented in this encounter Plan of Treatment Not on file documented as of this encounter Visit Diagnoses Not on filedocumented in this encounter Care Teams Field Enumerator Relationship Specialty Start Date End Date Justine Klein MD PCP - General General Internal Medicine 11/02/22 documented as of this encounter
--- OUTSIDE RECORDS SUMMARY | 2025-04-15 09:42 | XMS_ITS | Encounter Summary ---
Author Organization [employer] ([place], [place], [place], [place]) Address [address] [place] [address] Care Team Providers Care Plant Ecologist Name Role Phone Justine Klein MD Primary Care Provider [phone] Encounter Details Date Type Department Care Team (Late st Contact Info) Description 08/02/2019 Transcribed Document [facility] [place] Family Medicine [address] [place] [address] ProvideraRndi MD [address] [place], [place] [id number] Social History Tobacco Use Types Packs/Day Years Used Date Smoking Tobacco: Never Assessed Comments Unknown Sex and Gender Information Value Date Recorded Sex Assigned at Not on file Legal Sex Female 1:29 PM CDT Gender Identity Not on file Sexual Orientation Not on file documented as of this encounter Miscellaneous Notes * [employer] Conversion Note - Randi ProviderMD - 08/02/2019 6:03 PM PRODUCTION SOLDERER Electronically signed by [facility] Conversion Needle Board Repairer Cerner at 11/26/2022 12:13 PM CDT documented in this encounter Plan of Treatment Not on file documented as of this encounter Visit Diagnoses Not on filedocumented in this encounter Care Teams Plant Ecologist Relationship Specialty Start Date End Date Justine Klein MD PCP - General General Internal Medicine 11/02/22 documented as of this encounter
--- OUTSIDE RECORDS SUMMARY | 2025-04-15 09:42 | XMS_ITS | Encounter Summary ---
Author Organization [employer] ([place], [place], [place], [place]) Address [address] [place] [address] Care Team Providers Care Television Production Technician Name Role Phone Justine Klein MD Primary Care Provider [phone] Encounter Details Date Type Department Care Team (Late st Contact Info) Description 07/23/2020 Transcribed Document [facility] Family Medicine [address] [place] [address] ProviderRandi MD [address] [place], [place] [phone] Social History Tobacco Use Types Packs/Day Years Used Date Smoking Tobacco: Never Assessed Comments Unknown Sex and Gender Information Value Date Recorded Sex Assigned at Not on file Legal Sex Female 1:29 PM CDT Gender Identity Not on file Sexual Orientation Not on file documented as of this encounter Miscellaneous Notes * [employer] Conversion Note - Randi Gaines MD - 07/23/2020 12:22 PM DONKEY DOCTOR Pain Assessment Entered On: 07/23/2020 13:38 EST Performed On: 07/23/2020 13:37 EST by JANE LOTT RN Intervention Information: ketorolac Performed by UMANG POOLE RN on 07/23/2020 12:35:00 EST ketorolac,30mg IV Push,Peripheral Line 1 Pain Assessment Pain Assessment : Follow-up assessment Pain Scale Used : 0-10 Scale JANE LOTT RN - 07/23/2020 13:37 EST Pain Scale Intensity : 2 JANE LOTT RN - 07/23/2020 13:37 EST Image 4 - Images currently included in the form version of this document have not been included in the text rendition version of the form. documented in this encounter Plan of Treatment Not on file documented as of this encounter Visit Diagnoses Not on filedocumented in this encounter Care Teams Television Production Technician Relationship Specialty Start Date End Date Justine Klein MD PCP - General General Internal Medicine 11/02/22 documented as of this encounter
== END 2025-04-12 23:59 ==
LOC: LAB.DROPOF 04-15 09:32
PROVIDERS: PCP Family Medicine; Visit Provider Family Medicine
DX: N39.0 Urinary tract infection, site not specified (principal); E11.9 Type 2 diabetes mellitus without complications
CPT/HCPCS: 80053; 80061; 87086; 87088; 87186